=== PATIENT | male | born 1945 | race Caucasian/White ===

== ENCOUNTER → 2020-03-01 08:47 | Outpatient (BNVA) | payer MEDICARE, MEDICAID, SELFPAY | PROVIDERS: Family Provider Emergency Medicine Emergency Medical Services; Visit Provider Social Worker | DX: F41.1 Generalized anxiety disorder (principal) | CPT/HCPCS: 90834 ==

== ENCOUNTER 2020-09-15 19:07 | Inpatient (IN) | payer MEDICARE, MEDICAID, SELFPAY ==
[2020-09-15] VITALS (7 sets, daily range): BP systolic 87–142; BP diastolic 55–90; PULSE 90–109; RESP 18–29; TEMP 36.8–37; O2SAT 85–96; BMI 32.5
--- NOTE | 2020-09-15 19:26 | XRR_ITS ---
PROCEDURE INFORMATION: Exam: XR Chest, 1 View Exam date and time: 09/15/2020 7:47 PM Age: 74 years old Clinical indication: Dyspnea; Additional info: Gi bleed TECHNIQUE: Imaging protocol: XR of the chest Views: 1 view. COMPARISON: CR Chest 1 [place] [id number] 05/03/2019 7:55 PM FINDINGS: Lungs: Unremarkable. No consolidation. Pleural space: Unremarkable. No pleural effusion. No pneumothorax. Heart/Mediastinum: Unremarkable. No cardiomegaly. Bones/joints: Unremarkable. XR/XR chest 1V portable [id number] IMPRESSION: No acute findings.
--- NOTE | 2020-09-15 19:29 | ECG_ITS ---
[facility], Former[facility] Test Date: 2020-09-15 Pat Name: Yassine Santillan Sr Department: Room: Gender: Male [employer]: : 1945 Requested By: Pierce Mon Order Number: [id number] Joey MD: Cesar Espitia M.D. Measurements Intervals [place] Rate: 94 P: LA: QRS: 5 QRSD: 97 T: 89 QT: 373 QTc: 469 Interpretive Statements ATRIAL FIBRILLATION LOW QRS VOLTAGE IN EXTREMITY LEADS [QRS DEFLECTION < 0.5 mV IN LIMB LEADS] SEPTAL MYOCARDIAL INFARCTION , OF INDETERMINATE AGE [40+ ms Q WAVE IN V1/V2] No previous ECG available for comparison Electronically Signed On 09-16-2020 11:18:44 [employer]BLE MECH[employer]IC HELPER by Cesar Espitia M.D. [email or web address] Cattle Industrymercy health [email or web address]/store/OM/[id number]
--- NOTE | 2020-09-15 19:35 | CTR_ITS ---
PROCEDURE INFORMATION: Exam: CT Abdomen And Pelvis With Contrast Exam date and time: 09/15/2020 9:40 PM Age: 74 years old Clinical indication: Nausea and vomiting; Patient HX: Vomiting blood; Additional info: Abd pain gi bleeding. TECHNIQUE: Imaging protocol: Computed tomography of the abdomen and pelvis with intravenous contrast. Radiation optimization: All CT scans at this facility use at least one of these dose optimization techniques: automated exposure control; mA and/or kV adjustment per patient size (includes targeted exams where dose is matched to clinical indication); or iterative reconstruction. Contrast material: VISI 320; Contrast volume: 95 ml; Contrast route: INTRAVENOUS (IV); COMPARISON: CT abdomen pelvis w con* [id number] 03/23/2018 1:48 PM RADIATION DOSE METRICS: Total DLP (mGy-cm): 906.1 FINDINGS: Limitations: Metallic artifact from bilateral hip prostheses limits visualization of the lower pelvis. Lungs: Interstitial fibrosis and mild bronchiectasis noted at the lung bases. Liver: The liver is unremarkable in appearance. Gallbladder and bile ducts: Gallbladder contains multiple tiny gallstones in the dependent portion. No gallbladder wall thickening. No biliary dilatation. Pancreas: The pancreas is normal in appearance. Spleen: The spleen is normal in size and appearance. Adrenal glands: The adrenal glands appear within normal limits. Kidneys and ureters: Cortical scarring of the left kidney. There is a simple appearing 1.8 cm left renal cyst. No solid renal masses. No calculus or hydronephrosis on either side. Stomach and bowel: The stomach is distended with fluid and air, but appears morphologically normal. No acute abnormality of the small bowel demonstrated. Moderate retained stool throughout the colon. No inflammatory change of the colon. Appendix: No evidence of appendicitis. Intraperitoneal space: No pneumoperitoneum. No significant fluid collection. Vasculature: Abdominal aorta is atherosclerotic. There is diffuse aneurysmal dilatation of the abdominal aorta. The suprarenal aorta measures 5.1 cm in AP dimension in the sagittal plane. 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 The right common iliac measures 2.4 cm in diameter, unchanged. Left common iliac artery is mildly ectatic without carl aneurysm. 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 Right internal iliac is patent. Lymph nodes: No pathologically enlarged lymph nodes. Urinary bladder: The urinary bladder is unremarkable in appearance. Reproductive: Unremarkable as visualized. Bones/joints: Bilateral hip prostheses are noted. Postop changes and degeneration of the spine noted. Soft tissues: Small left inguinal hernia noted, containing only fat. CT/CT abdomen pelvis w con* [id number] IMPRESSION: 1. Metallic artifact from bilateral hip prostheses limits visualization of the lower pelvis. 2. The stomach is distended with fluid and air, but appears morphologically normal. Gastric distention is a new finding when compared to the previous study, however the source of hematemesis is not identified. 3. Gallbladder contains multiple tiny gallstones in the dependent portion. No gallbladder wall thickening. No biliary dilatation. 4. Abdominal aorta is atherosclerotic. There is diffuse aneurysmal dilatation of the abdominal aorta. The suprarenal aorta measures 5.1 cm in AP dimension in the sagittal plane. This is unchanged from 03/25/2019. 5. 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 The right common iliac measures 2.4 cm in diameter, unchanged. 6. Left common iliac artery is mildly ectatic without carl aneurysm. 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 Right internal iliac is patent. This is unchanged. 7. Small left inguinal hernia noted, containing only fat. COMMENTS: Consistent with the [employer]'s Incidental Findings Committee white paper (J Am Mona Radiol 2018): Any incidental renal lesion less than 1 cm or classified as too small to characterize, or any incidental cystic renal lesion characterized as simple-appearing, is likely benign. No follow-up imaging is recommended for these lesions per consensus recommendations based on imaging criteria. Radiation Dose CTDIVOL = (mGy): DLP = 906.1 (mGy-cm)
[2020-09-15 19:47] LABS: ABG PCO2 42.7 mmHg (35-45); ABG PH Result 7.47 (7.35-7.45); Arterial Blood Gas Hematocrit 29.6 % (42-52); Base Excess ABG 6.3 mmol/L (-2.0-2.0); Blood Gas Allen Test Pos; Blood Gas LPM 4.5 %; Blood Gas Operator Identificat MONRO; Blood Gas Sample Site Radial, left; Blood Gas Sample Type Arterial; HCO3 ABG 30.7 mmol/L (22-26); Oxygen Device NC; PO2 ABG 61.9 mmHg (80.0-100.0)
[2020-09-15 20:10] LABS: Basophils # 0.1 10^3/uL (0.0-0.1); Basophils % 0.3 %; Eosinophils # 0.1 10^3/uL (0.0-0.8); Eosinophils % 0.8 %; Hematocrit 35.3 % (42.0-52.0); Hemoglobin 10.7 g/dL (11.7-16.6); Lymphocytes # 1.5 10^3/uL (0.8-4.8); Mean Corpuscular HGB Conc 30.3 g/dL (30.0-36.0); Mean Corpuscular Hemoglobin 28.6 pg (28.0-34.0); Mean Corpuscular Volume 94.4 fL (80-94); Mean Platelet Volume 10.3 fL (7.4-10.4); Monocytes # 1.2 10^3/uL (0.2-0.9); Monocytes % 6.4 %; Neutrophils # 15.52 10^3/uL (1.8-7.7); Neutrophils % 83.8 %; Nucleated Red Blood Cells % 0 %; Platelet Count 366 10^3/cmm (130-400); Red Blood Count 3.74 10^6/uL (4.1-5.3); Red Cell Distribution Width 15.1 % (12.1-15.1); White Blood Count 18.5 10^3/uL (4.0-10.0)
[2020-09-15] MEDS: sodium chloride 0.9% 1,000 ML 999 ML IV (20:11)
[2020-09-15 20:35] LABS: INR 1.59 (0.8-1.2)
[2020-09-15 20:36] LABS: Lactate (Lactic Acid level) 1.6 mmol/L (0.5-2.2); Partial Thromboplastin Time 38.3 SECONDS (23.9-36.7)
[2020-09-15 20:39] LABS: Alanine Aminotransferase 9 U/L (0-41); Albumin Level 3.3 g/dL (3.5-5.2); Alkaline Phosphatase 104 IU/L (40-130); Blood Urea Nitrogen 34 mg/dL (8-23); Calcium 9.2 mg/dL (8.5-10.5); Carbon Dioxide 30 mmol/L (22-29); Chloride 90 mmol/L (98-107); Globulin 4.7 g/dL (1.3-4.6); Glucose 131 mg/dL (65-115); Osmolality Calculated 283 mOsm/kg (285-295); Sodium 132 mmol/L (136-145); Total Bilirubin 0.6 mg/dL (0.15-1.2)
[2020-09-15 20:42] LABS: Anion Gap 16.9 (5-19); Aspartate Amino Transferase 18 U/L (0-40); Potassium 4.9 mmol/L (3.5-5.1)
--- NOTE | 2020-09-15 21:46 | W.ED.NAVMDI ---
HPI - Nausea/Vomiting/Diarrhea General: Chief complaint: Nausea/Vomiting/Diarrhea Stated complaint: VOMITING BLOOD Time Seen by Provider: 09/15/20 19:13 History of Present Illness: MD elicited complaint: vomiting and abdominal pain Pertinent past history: hernia Onset (ago): hour(s) Description of vomiting: bloody Associated nausea: Yes Associated abdominal pain: Yes Location of pain: Epigastric and LLQ Pain consistency: constant Severity: moderate Exacerbating factors: movement Relieving factors: none Context: anticoagulant use and aspirin use Associated symtoms: Reports altered mental status and nausea; Denies anxiety, change in vision, chest pain, dizziness, headache(s) or palpitations Review of Systems Const: Denies: fever(s) Eyes: Denies: change in vision ENMT: Denies: odynophagia or sinus pain Card: Denies: chest pain, palpitations or irregular heart rhythm Resp: Denies: dyspnea, productive cough, non-productive cough or wheezing GI: Reports: nausea : Denies: difficulty urinating Musc: Denies: neck pain or joint warmth Skin/Breast: Denies: rash, pruritus or erythema Neuro: Denies: headache(s), dizziness, vertigo or confusion Psych: Denies: anxiety PFSH ED PFSH: Medical History (Updated 09/15/20 @ 23:40 by Deja Resendez MD) Anticoagulant prescribed Atrial fibrillation Back pain CAD (coronary artery disease) COPD (chronic obstructive pulmonary disease) Diabetes DNR (do not resuscitate) Hospice care patient Hypertension Presence of hip joint prosthesis Surgical History H/O abdominal surgery H/O angioplasty H/O hernia repair Previous back surgery S/P AAA repair Family History Other Family history non-contributory Social History Alcohol intake: never Substance/Drug Use: never Housing: [facility] Physical Exam Const: EXAM LIMITATIONS: altered mental status GENERAL APPEARANCE: ill appearing and frail appearing ORIENTATION/CONSCIOUSNESS: Yes oriented to person and Yes oriented to place; not oriented to time HENMT: COMMON NORMALS: normocephalic HEAD & SCALP: normocephalic FACE & SINUS: normal facial exam NOSE: No nasal discharge present Eye: COMMON NORMALS: Equal, round and reactive pupils present, EOMs intact bilaterally and conjunctivae normal EYELID: eyelids normal CONJUNCTIVA: Yes conjunctivae normal PUPIL: Yes Equal, round and reactive pupils present Neck/C-Spine: GENERAL: No tracheal deviation Chest: COMMONS NORMALS: normal inspection of the chest CHEST: No tenderness Resp: COMMON NORMALS: clear to auscultation bilaterally EFFORT & INSPECTION: No tachypneic, No respiratory distress, No retractions, No uses accessory muscles and No tracheal deviation AUSCULTATION: clear to auscultation bilaterally, no rhonchi, no wheezes and lung sounds not diminished Cardio: COMMON NORMALS: regular rate and regular rhythm RATE: regular rate RHYTHM: regular rhythm HEART SOUNDS: no murmurs PERIPHERAL PULSES: radial pulses present GI: INSPECTION: No abdominal distension AUSCULTATION: No Hyperactive bowel sounds present and No Hypoactive bowel sounds present PALPATION: Yes Tenderness to palpation present (GI) (epigastric) Details: LLQ, Yes Guarding due to palpation present (GI) and No Rigid due to palpation PERCUSSION: no dullness to percussion and no tympanic to percussion Neuro: SENSORIUM/ORIENTATION: Yes oriented to person, Yes oriented to place and No oriented to time Course Consultations: Consultation #1: rody Vital Signs: Vital signs: Vital Signs Temperature 98.6 F 09/15/20 22:30 Pulse Rate 92 09/16/20 00:00 Respiratory Rate 25 H 09/16/20 00:00 Blood Pressure 128/69 09/16/20 00:00 Pulse Oximetry 94 09/16/20 00:00 MDM - Nausea/Vomiting/Diarrhea MDM Narrative: Medical decision making narrative: 74-year-old H[facility] presents with GI bleeding, throwing up dark blood there 1 time. He was hypotensive on arrival requiring fluid bolus, and 1 unit of blood was crossmatched and given in the ER. Pressures normalized. He looked better, but did have 2 more episodes of bloody emesis here in the ER. His hemoglobin remains 10.7. White blood cell count was 18.5. BUN 34, creatinine 2.1. With normalization in his blood pressure, and a hemoglobin of 10.7, having been transfused 1 unit, he will go to the floor. His belly CT showed no definite cause of GI bleeding, and no acute pathology. The stomach was distended with air and liquid. NG tube was placed without much return. We will continue to monitor pressure and hemoglobin. I talked with the patient's son and the patient himself, and it appears she is to remain a DNR status. Lab Data: Labs: Lab Results 09/15/20 09/15/20 09/15/20 Range/Units 19:34 19:47 19:47 WBC 18.5 H (4.0-10.0) 10^3/ uL RBC 3.74 L (4.1-5.3) 10^6/u L Hgb 10.7 L (11.7-16.6) g/dL Hct 35.3 L (42.0-52.0) % MCV 94.4 H (80-94) fL MCH 28.6 (28.0-34.0) pg MCHC 30.3 (30.0-36.0) g/dL RDW 15.1 (12.1-15.1) % Plt Count 366 (130-400) 10^3/c mm MPV 10.3 (7.4-10.4) fL Neut % (Auto) 83.8 % Lymph % (Auto) 8.0 % [place] % (Auto) 6.4 % Eos % (Auto) 0.8 % Baso % (Auto) 0.3 % Neut # (Auto) 15.52 H (1.8-7.7) 10^3/u L Lymph # (Auto) 1.5 (0.8-4.8) 10^3/u L [place] # (Auto) 1.2 H (0.2-0.9) 10^3/u L Eos # (Auto) 0.1 (0.0-0.8) 10^3/u L Baso # (Auto) 0.1 (0.0-0.1) 10^3/u L Nucleated RBC % (a uto) 0 % Nucleated RBCs # 0.0 /100WBC PT (12.1-14.9) SECO NDS INR (0.8-1.2) APTT (23.9-36.7) SECO NDS Specimen Type Arterial Sample Site Radial, left ABG pH 7.47 H (7.35-7.45) ABG pCO2 42.7 (35-45) mmHg ABG pO2 61.9 L (80.0-100.0) mmH g ABG HCO3 30.7 H (22-26) mmol/L ABG Base Excess 6.3 H (-2.0-2.0) mmol/ L [facility] Test Pos Hematocrit 29.6 L (42-52) % O2 Delivery Device Nc O2 Liters/Min 4.5 % FiO2 38.0 % Sulfide Head Operator ID Monro Sodium (136-145) mmol/L Potassium (3.5-5.1) mmol/L Chloride (98-107) mmol/L Carbon Dioxide (22-29) mmol/L Anion Gap (5-19) BUN (8-23) mg/dL Creatinine (0.7-1.2) mg/dL GFR Calculation Glucose (65-115) mg/dL Calculated Osmolal ity (285-295) mOsm/k g Lactate (0.5-2.2) mmol/L Calcium (8.5-10.5) mg/dL Total Bilirubin (0.15-1.2) mg/dL AST (0-40) U/L ALT (0-41) U/L Alkaline Phosphata se (40-130) IU/L Total Protein (6.6-8.7) g/dL Albumin (3.5-5.2) g/dL Globulin (1.3-4.6) g/dL Blood Type O Positive Rho(D) Type Positive Antibody Screen Negative Crossmatch See Detail 09/15/20 09/15/20 09/15/20 Range/Units 19:47 19:47 19:47 WBC (4.0-10.0) 10^3/ uL RBC (4.1-5.3) 10^6/u L Hgb (11.7-16.6) g/dL Hct (42.0-52.0) % MCV (80-94) fL MCH (28.0-34.0) pg MCHC (30.0-36.0) g/dL RDW (12.1-15.1) % Plt Count (130-400) 10^3/c mm MPV (7.4-10.4) fL Neut % (Auto) % Lymph % (Auto) % [place] % (Auto) % Eos % (Auto) % Baso % (Auto) % Neut # (Auto) (1.8-7.7) 10^3/u L Lymph # (Auto) (0.8-4.8) 10^3/u L [place] # (Auto) (0.2-0.9) 10^3/u L Eos # (Auto) (0.0-0.8) 10^3/u L Baso # (Auto) (0.0-0.1) 10^3/u L Nucleated RBC % (a uto) % Nucleated RBCs # /100WBC PT 19.50 H (12.1-14.9) SECO NDS INR 1.59 H (0.8-1.2) APTT 38.3 H (23.9-36.7) SECO NDS Specimen Type Sample Site ABG pH (7.35-7.45) ABG pCO2 (35-45) mmHg ABG pO2 (80.0-100.0) mmH g ABG HCO3 (22-26) mmol/L ABG Base Excess (-2.0-2.0) mmol/ L [facility] Test Hematocrit (42-52) % O2 Delivery Device O2 Liters/Min % FiO2 % Sulfide Head Operator ID Sodium 132 L (136-145) mmol/L Potassium 4.9 (3.5-5.1) mmol/L Chloride 90 L (98-107) mmol/L Carbon Dioxide 30 H (22-29) mmol/L Anion Gap 16.9 (5-19) BUN 34 H (8-23) mg/dL Creatinine 2.1 H (0.7-1.2) mg/dL GFR Calculation Not Reportable Glucose 131 H (65-115) mg/dL Calculated Osmolal ity 283 L (285-295) mOsm/k g Lactate 1.6 (0.5-2.2) mmol/L Calcium 9.2 (8.5-10.5) mg/dL Total Bilirubin 0.6 (0.15-1.2) mg/dL AST 18 (0-40) U/L ALT 9 (0-41) U/L Alkaline Phosphata se 104 (40-130) IU/L Total Protein 8.0 (6.6-8.7) g/dL Albumin 3.3 L (3.5-5.2) g/dL Globulin 4.7 H (1.3-4.6) g/dL Blood Type Rho(D) Type Antibody Screen Crossmatch Discharge Plan Discharge Admit Provider: Deja Resendez Coding Level of Care Code ED [place] Ragger for g Fwd Exam Comprehensive
[2020-09-15] MEDS: iodixanol 320 mg/mL 100mL Btl IV (21:59)
--- NOTE | 2020-09-15 23:10 | P.HP_ITS ---
Providers/Chief Complaint Chief Complaint: VOMITING BLOOD History of Present Illness Yassine Santillan Sr is a 74 year old male who is on hospice for severe COPD, interstitial fibrosis, bronchiectasis, resident of [facility] came in today after experiencing hematemesis. Patient is stating that today he started vomiting and he noticed coffee-ground emesis, he has been experiencing midepigastric pain, he is denying chest pain but endorsing productive cough, bringing up yellow sputum. He denied fever, active shortness of breath, dysuria or diarrhea. I called intermediate to get the report, as per the report patient had COVID-19 pneumonia a month ago, before that he was able to walk up to his wheelchair, after COVID- 19 pneumonia his health has gradually declined now he is basically needing a ssistance for ambulation, he mostly stays in bed or uses wheelchair, he is not able to do activities independently anymore. There is no previous history of stroke. Patient is endorsing dysphagia to liquid and solid, he is stating that he is just not able to walk on his own and he cannot keep his balance while he is in sitting position. He has been taking Eliquis for A. fib. Diagnosis in the ER revealed hypotension initially his blood pressure was in low 70s, which improved after 1 L bolus, ER started him on first unit of PRBC by the time I saw him, patient had audible crackles, sounded congested, he has had multiple small hematemesis episodes, he was saturating 80% on 3 L which I increased to 5 L, patient stated that at intermediate he is using [address] abdomen did not reveal any acute findings however abdomen is distended, he could not get CTA because of abnormal creatinine, RICHARD, leukocytosis noted, he would meet sepsis criteria secondary to tachypnea and leukocytosis my concern is for aspiration pneumonia, will start him on Zosyn Documents reviewed, he is DNR/DNI At the facility he is on hospice for severe COPD. Home medications Acetaminophen 325 mg every 6 as needed Albuterol sulfate HFA aerosol 2 puffs as needed Aspirin 81 mg daily Vitamin D3 1000 mg every day daily Cyclobenzaprine 5 mg p.o. 3 times a day as needed Diltiazem 60 mg twice a day Dulcolax 10 mg once a day as needed Eliquis 5 mg twice a day Senna S8.6/50 p.o. at bedtime Symbicort 160?4.5 twice a day Tamsulosin 0.4 mg daily Ferrous gluconate 324 mg every day Fentanyl patch 75 mics per hour every 72 hours Enema as needed Gabapentin 300 mg 3 times a day Lisinopril 40 mg daily Lorazepam 2 mg IV every 2 hours as needed anxiety Metoprolol succinate 12.5 mg twice a day Milk of magnesia as needed Morphine 20 mg per 5 mL every 2 hours as needed Mucinex 3 times a day Zofran 4 mg every 4 hours. Review of Systems Const: Reports: chills, body aches and fatigue; Denies: fever(s) Eyes: Denies: change in vision ENMT: Reports: odynophagia; Denies: throat pain Card: Denies: chest pain Resp: Reports: dyspnea and productive cough GI: Reports: abdominal pain, nausea, vomiting and constipation : Denies: flank pain Musc: Reports: muscle cramps and muscle weakness; Denies: neck pain Skin/Breast: Reports: lesions Neuro: Reports: weakness in extremities, lack of coordination and difficulty walking Psych: Reports: memory loss; Denies: anxiety Endo: Denies: polyuria Regan/Lymph: Denies: easy bruising All/Imm: Denies: urticaria PFSH Acute PFSH: Medical History Anticoagulant prescribed Atrial fibrillation Back pain CAD (coronary artery disease) COPD (chronic obstructive pulmonary disease) Diabetes DNR (do not resuscitate) Hypertension Presence of hip joint prosthesis Surgical History H/O abdominal surgery H/O angioplasty H/O hernia repair Previous back surgery S/P AAA repair Family History Other Family history non-contributory Social History Alcohol intake: never Substance/Drug Use: never Housing: Longterm Vitals/I&O/Wt Last Vital Signs Temp 98.6 F 09/15/20 22:30 Pulse 94 09/15/20 23:07 Resp 26 H 09/15/20 23:07 BP 106/59 09/15/20 23:07 Pulse Ox 96 09/15/20 23:07 09/15/20 09/15/20 09/16/20 14:59 22:59 06:59 Intake Total 0 / 0 Balance 0 / 0 Weight last 48 hrs Weight 99.79 kg Physical Exam Narrative: EXAM NARRATIVE: Elderly male Was in distress due to hematemesis, vomiting bucket by the bedside showing dark color coffee-ground emesis with fresh streaks of blood Bringing up yellow-green sputum as well Patient is able to state above-mentioned HPI however repetitive He has truncal ataxia Patient is endorsing dysphagia to solids and liquids Lower extremity strength 2/5, upper extremity strength 3/5, truncal ataxia noted No facial asymmetry, PERRLA Abdomen midepigastric tenderness on deep palpation otherwise nontender, soft bowel sounds hyperactive Bibasilar crackles with rhonchi however diminished breath sounds no acute respiratory distress, Lower extremity no edema gangrene or ulcer He is awake alert oriented x3 GCS 15 Cognitive impairment noted mild to moderate Increased FiO2 to 5 L Data : 09/15/20 19:47 09/15/20 19:47 A&P Assessment and plan (1) Dysphagia: Status: Acute (2) Hematemesis: Status: Acute (3) Weakness: Status: Acute (4) Aspiration pneumonia: Status: Acute (5) Sepsis: Status: Acute (6) RICHARD (acute kidney injury): Status: Acute Additional A&P Information Hematemesis Patient is hypotensive, responsive to fluids, Currently getting first unit of PRBC, hemoglobin however seems to be at baseline 10 Macrocytic anemia, will check B12 and folate level No urgent need of endoscopy, hold Eliquis, currently consider general surgery consult in the morning if there is a drastic drop in hemoglobin CT abdomen did not show any acute findings, distended abdomen noted, will put NG tube to low intermittent suction Zofran antiemetic, Protonix 40 mg IV twice daily Morphine analgesia for midepigastric discomfort Acute kidney injury This seems secondary to dehydration and hypotension along with nephrotoxic agent such as lisinopril Hold lisinopril, continue IV fluid resuscitation and blood transfusion, No hydronephrosis seen on a CT abdomen Please note CT abdomen ordered by the ER was with contrast, monitor closely for worsening of creatinine for NIGHAT Sepsis secondary to possible aspiration pneumonia Sepsis criteria met with tachypnea, leukocytosis, Lactic acid normal, currently hypotensive responsive to fluid We will start him on Zosyn, bringing up yellow to green sputum as well Dysphagia, truncal ataxia and lower extremity weakness Check B12 level, rule out stroke, CT head without contrast, not a candidate to get CTA head and neck because of active hematemesis and hypotension, he is a hospice patient for severe COPD at intermediate Not a candidate to be on any dual antiplatelet therapy as well We will get speech evaluation N.p.o. Oxygen dependent COPD at intermediate, uses 4 to 5 L at baseline, no acute exacerbation DNR/DNI N.p.o. DVT prophylaxis SCDs Attestations Medical Necessity Statement*: Anticipating stay in the hospital cross more than 2 midnights currently need IV antibiotics and blood transfusion for hypotension and sepsis Time Spent in Patient Care: (>than 50% of time spent in counselling and/or dir ect pt care on unit) . 50mins Coding Level of Care Code Acute [employer] Director for Chg Fwd Diagnoses Dysphagia R13.10 Hematemesis K92.0 Weakness R53.1 Aspiration pneumonia J69.0 Sepsis A41.9 RICHARD (acute kidney injury) N17.9
--- NOTE | 2020-09-15 23:15 | CTR_ITS ---
PROCEDURE INFORMATION: Exam: CT Head Without Contrast Exam date and time: 09/15/2020 11:28 PM Age: 74 years old Clinical indication: Other: Ataxia; Additional info: Dysphai and trucla ataxia TECHNIQUE: Imaging protocol: Computed tomography of the head without contrast. Radiation optimization: All CT scans at this facility use at least one of these dose optimization techniques: automated exposure control; mA and/or kV adjustment per patient size (includes targeted exams where dose is matched to clinical indication); or iterative reconstruction. COMPARISON: CT head wo con* [id number] 2017-04-26 11:01 RADIATION DOSE METRICS: Total DLP (mGy-cm): 760.67 FINDINGS: Brain: Diffuse mild cerebral age related volume loss. Mild patchy low attenuation in the white matter compatible with mild chronic small vessel ischemic disease. No midline shift, mass, fluid collection, or evidence of hemorrhage. Small chronic right thalamic lacunar infarct. Cerebral ventricles: Ventricular enlargement proportional to volume loss. Bones/joints: Unremarkable. No acute fracture. Paranasal sinuses: Minimal paranasal sinus mucosal thickening. Mastoid air cells: Visualized mastoid air cells are well aerated. Soft tissues: Unremarkable. CT/CT head wo con* [id number] IMPRESSION: 1. Mild involutional changes, no acute intracranial abnormality. 2. Small chronic right thalamic lacunar infarct. Radiation Dose CTDIVOL = (mGy): DLP = 760.67 (mGy-cm)
[2020-09-16] VITALS (15 sets, daily range): BP systolic 114–131; BP diastolic 68–84; PULSE 79–151; RESP 17–25; TEMP 36.6–36.9; O2SAT 93–97
[2020-09-16] MEDS: cetacaine Spray 5 gm Can 1 SPRAY TOPICAL (00:25)
[2020-09-16] MEDS: ondansetron 2 mg/ML SDV 2 mL 4 MG IVP (00:25)
--- NOTE | 2020-09-16 00:30 | XRR_ITS ---
PROCEDURE INFORMATION: Exam: XR Chest, 1 View Exam date and time: 09/16/2020 12:45 AM Age: 74 years old Clinical indication: Device placement; Ng tube; Additional info: Ng tube placement TECHNIQUE: Imaging protocol: XR of the chest Views: 1 view. COMPARISON: CR XR chest 1V portable [id number] 09/15/2020 7:38 PM FINDINGS: Limitations: Lung apices are excluded from the image. Tubes, catheters and devices: There is a nasogastric tube present with distal tip in the stomach. Lungs: Mild increased interstitial lung markings. No consolidative infiltrate. Pleural space: No pleural effusion. Heart/Mediastinum: No cardiomegaly. Bones/joints: Unremarkable. XR/XR chest 1V [id number] IMPRESSION: 1. Lung apices are excluded from the image. 2. There is a nasogastric tube present with distal tip in the stomach. 3. Mild increased interstitial lung markings. No consolidative infiltrate. Pulmonary findings are unchanged from the previous study.
[2020-09-16] MEDS: piperacillin-tazobactam 3.375 GM in sodium chloride 0.9% (plus) 50 ML IV ×3 (02:37→18:08)
[2020-09-16] MEDS: FUROsemide 10 mg/mL SDV 2mL 20 MG IVP (02:55)
[2020-09-16 06:03] LABS: Basophils # 0.1 10^3/uL (0.0-0.1); Basophils % 0.2 %; Hematocrit 31.7 % (42.0-52.0); Hemoglobin 9.8 g/dL (11.7-16.6); Lymphocytes # 1.8 10^3/uL (0.8-4.8); Lymphocytes % 8.8 %; Mean Corpuscular HGB Conc 30.9 g/dL (30.0-36.0); Mean Corpuscular Hemoglobin 28.7 pg (28.0-34.0); Monocytes # 1.6 10^3/uL (0.2-0.9); Monocytes % 7.9 %; Neutrophils # 16.58 10^3/uL (1.8-7.7); Neutrophils % 82.5 %; Nucleated Red Blood Cells % 0 %; Platelet Count 313 10^3/cmm (130-400); Red Blood Count 3.41 10^6/uL (4.1-5.3); Red Cell Distribution Width 15.2 % (12.1-15.1); White Blood Count 20.1 10^3/uL (4.0-10.0)
[2020-09-16 06:22] LABS: Anion Gap 10.8 (5-19); Blood Urea Nitrogen 38 mg/dL (8-23); Calcium 8.6 mg/dL (8.5-10.5); Carbon Dioxide 33 mmol/L (22-29); Chloride 98 mmol/L (98-107); Glucose 118 mg/dL (65-115); Osmolality Calculated 296 mOsm/kg (285-295); Potassium 3.8 mmol/L (3.5-5.1); Sodium 138 mmol/L (136-145)
[2020-09-16] MEDS: morphine 4 mg/mL SDV 1 mL 2 MG IVP ×3 (07:51→16:06)
[2020-09-16] MEDS: pantoprazole 40 mg SDV IVP ×2 (07:59→18:08)
[2020-09-16 17:27] LABS: Hemoglobin 10.1 g/dL (11.7-16.6)
--- NOTE | 2020-09-16 18:03 | P.PN_ITS ---
Subjective Subjective: Interval history: Still bothered by left upper quadrant pain. Has not had any vomiting. Later in the day accidentally pulled out his NG tube. Vitals/I&O/Wt Last Vital Signs Temp 98.3 F 09/16/20 16:00 Pulse 122 H 09/16/20 16:00 Resp 18 09/16/20 16:06 BP 125/79 09/16/20 16:00 Pulse Ox 96 09/16/20 16:00 09/16/20 09/16/20 09/16/20 06:59 14:59 22:59 Intake Total 1050 / 1050 Output Total 950 / 950 975 / 975 Balance 100 / 100 -975 / -975 Weight last 48 hrs Weight 99.79 kg Physical Exam Const: COMMON NORMALS: no acute distress and patient oriented x3 HENMT: COMMON NORMALS: oropharynx normal OTHER: NG tube in place during my assessment draining some brownish liquid with coffee-ground contents. Neck/C-Spine: COMMON NORMALS: no JVD Resp: COMMON NORMALS: normal respiratory effort AUSCULTATION: diminished lung sounds (at bases) Cardio: COMMON NORMALS: no JVD, regular rhythm, S1 normal heart sound present, S2 normal heart sound present and No murmurs present (Cardio) RHYTHM: regular rhythm HEART SOUNDS: S1 normal heart sound present and S2 normal heart sound present GI: COMMON NORMALS: Normal to inspection, nondistended, normoactive bowel sounds present and Soft to palpation PALPATION: Yes Soft to palpation and Yes Tenderness to palpation present (GI) Details: LUQ Extremity: COMMON NORMALS: no joint enlargement and no pedal edema Neuro: COMMON NORMALS: patient oriented x3 and moves all extremities Skin: COMMON NORMALS: no rashes or lesions noted GENERAL SKIN EXAM: no rashes or lesions noted Urinary Catheter Management^: Sheikh: Cath Placed During This Visit: yes Reason for Continuing Indwelling Catheter: Accurate Measurement of Urinary Output in Critically Ill Patients Urinary Catheter Date of Insertion: 09/16/20 Urinary Catheter Time of Insertion: 02:10 Data : 09/16/20 16:14 09/16/20 05:13 A&P Assessment and plan (1) Hematemesis: Upper GI bleed. Hemoglobin appears stabilized around 10.1. Still draining coffee-ground contents from stomach. NG tube has to be replaced as he inadvertently pulled it out. Still left upper quadrant abdominal discomfort. Continue PPI twice daily. Hold anticoagulation and ASA. Reassess hemoglobin. Check H. pylori antibody, antigen. Possible gastric outlet obstruction. If not improving with decompression consider endoscopic evaluation at some point if congruent with goals of care. He is under hospice care. Status: Acute (2) Dysphagia: Appreciate speech therapy assessment. At risk of aspiration. MBS requested. CT head with mild involutional changes, no chronic intracranial abnormality. Small chronic right thalamic lacunar infarct. Once more stable, could have additional work-up if congruent with goals of care as he is currently under hospice care. Aspirin is on hold for a number of reasons in addition to all other oral medications. Status: Acute (3) Sepsis: Sepsis with aspiration pneumonia, leukocytosis worse at 20.1, tachycardia, although is in atrial fibrillation. Sepsis has improved as tachypnea present on admission is now better. Status: Acute (4) Aspiration pneumonia: Additional assessment for dysphagia. Continue Zosyn. N.p.o. for now. Oxygenation stable, requiring 5 L oxygen by nasal cannula. COPD, normally on 4-5 L. Status: Acute (5) Weakness: Multifactorial. Treat underlying conditions as above. Status: Acute (6) RICHARD (acute kidney injury): With mild improvement, creatinine at 1.8. Hold lisinopril. Will give gentle IV hydration. 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 Right internal iliac is patent. This is unchanged. Status: Acute (8) AAA (abdominal aortic aneurysm): Incidentally noted. Status: Acute (9) Cholelithiasis: Incidentally noted. Status: Acute (10) Macrocytic anemia: I see B12 and folic acid were meant to be tested. Will request. Status: Acute (11) Paroxysmal atrial fibrillation with RVR: Change metoprolol to standing IV ordered. scientific software developer. Status: Acute Additional A&P Information DNR/DNI N.p.o. DVT prophylaxis SCDs Attestations Medical Necessity Statement*: Continue admission for assessment management of upper GI bleed, improving sepsis with aspiration pneumonia, dysphagia, acute kidney injury in a gentleman with severe underlying COPD, chronic hypoxia, on chronic anticoagulation, with a number of comorbidities. Coding Level of Care Code Acute Tag Press Operator for Chg Fwd Diagnoses Hematemesis K92.0 Dysphagia R13.10 Sepsis A41.9 Aspiration pneumonia J69.0 Weakness R53.1 RICHARD (acute kidney injury) N17.9 Iliac artery occlusion I74.5 AAA (abdominal aortic aneurysm) I71.4 Cholelithiasis K80.20 Macrocytic anemia D53.9 Paroxysmal atrial fibrillation with RVR I48.0
--- NOTE | 2020-09-16 18:35 | XRR_ITS ---
PROCEDURE INFORMATION: Exam: XR Chest, 1 View Exam date and time: 09/16/2020 7:11 PM Age: 74 years old Clinical indication: Device placement; Ng tube; Additional info: Ngt replaced TECHNIQUE: Imaging protocol: XR of the chest Views: 1 view. COMPARISON: CR (CHEST, ) 09/16/2020 12:26 AM FINDINGS: Tubes, catheters and devices: NG tube with tip in the mid stomach and side port near the GE junction. Lungs: Stable atelectasis or scarring in the left lung base. Ground-glass opacity in the right upper lobe. Pleural space: Unremarkable. No pleural effusion. No pneumothorax. Heart/Mediastinum: Unremarkable. No cardiomegaly. Bones/joints: Unremarkable. XR/XR chest 1V portable [id number] IMPRESSION: 1. NG tube tip in the mid stomach. 2. Ground-glass opacity in the right upper lobe could represent pneumonia.
[2020-09-16] MEDS: metoprolol tartrate 1 mg/1 mL SDV 5 mL 2.5 MG IV (20:19)
[2020-09-16] MEDS: ipratropium-albuterol 3 mL Neb INHALATION (21:14)
[2020-09-16 21:19] LABS: H. Pylori IgG Antibody Negative (Negative)
[2020-09-16] MEDS: lactated ringers 1,000 ML 75 ML IV (22:46)
[2020-09-16] MEDS: OLANZapine 10 mg VIAL IM (22:56)
[2020-09-17] VITALS (13 sets, daily range): BP systolic 126–144; BP diastolic 56–83; PULSE 74–115; RESP 16–25; TEMP 36.3–36.9; O2SAT 90–100
[2020-09-17] MEDS: morphine 4 mg/mL SDV 1 mL 2 MG IVP ×2 (01:44→20:32)
[2020-09-17] MEDS: metoprolol tartrate 1 mg/1 mL SDV 5 mL 2.5 MG IV ×4 (01:53→20:19)
[2020-09-17] MEDS: piperacillin-tazobactam 3.375 GM in sodium chloride 0.9% (plus) 50 ML IV ×3 (02:03→17:27)
[2020-09-17 05:46] LABS: Basophils % 0.3 %; Eosinophils # 0.1 10^3/uL (0.0-0.8); Eosinophils % 0.9 %; Hematocrit 30.6 % (42.0-52.0); Hemoglobin 9.3 g/dL (11.7-16.6); Lymphocytes # 1.6 10^3/uL (0.8-4.8); Lymphocytes % 13.3 %; Mean Corpuscular HGB Conc 30.4 g/dL (30.0-36.0); Mean Corpuscular Hemoglobin 28.9 pg (28.0-34.0); Mean Platelet Volume 10.1 fL (7.4-10.4); Monocytes % 7.8 %; Neutrophils # 9.44 10^3/uL (1.8-7.7); Neutrophils % 77.2 %; Nucleated Red Blood Cells % 0 %; Platelet Count 299 10^3/cmm (130-400); Red Blood Count 3.22 10^6/uL (4.1-5.3); Red Cell Distribution Width 15.3 % (12.1-15.1); White Blood Count 12.2 10^3/uL (4.0-10.0)
[2020-09-17 06:23] LABS: Anion Gap 13.7 (5-19); Blood Urea Nitrogen 37 mg/dL (8-23); Calcium 8.9 mg/dL (8.5-10.5); Carbon Dioxide 33 mmol/L (22-29); Chloride 98 mmol/L (98-107); Glucose 106 mg/dL (65-115); Osmolality Calculated 301 mOsm/kg (285-295); Potassium 3.7 mmol/L (3.5-5.1); Sodium 141 mmol/L (136-145)
[2020-09-17 06:40] LABS: Folate Level 4.8 ng/mL (4.5-32.2)
[2020-09-17 07:23] LABS: Vitamin B12 569 pg/mL (232-1245)
--- NOTE | 2020-09-17 08:00 | FL_ITS ---
WS: [id number] FL barium swallow modified [id number] REASON FOR EXAM: Oropharyngeal dysphagia FLUOROSCOPY TIME: 2.4 minutes FINDINGS: Videofluoroscopy was performed during the upright swallowing of small barium meals of varying texture and volume. Detailed report of the swallowing will be reported by speech therapy. Nasogastric tube i s in place. No obstruction of the mid or distal esophagus was identified. FL/FL barium swallow modifd [id number] IMPRESSION: Video fluoroscopy of swallowing as above.
[2020-09-17] MEDS: pantoprazole 40 mg SDV IVP ×2 (09:29→17:28)
[2020-09-17 13:18] LABS: Glucose Point of Care 110 mg/dL (70-110)
[2020-09-17] MEDS: lactated ringers 1,000 ML 75 ML IV (13:39)
[2020-09-17] MEDS: ipratropium-albuterol 3 mL Neb INHALATION ×2 (14:44→21:10)
--- NOTE | 2020-09-17 15:44 | XRR_ITS ---
PROCEDURE INFORMATION: Exam: XR Abdomen, 1 View Exam date and time: 09/17/2020 3:52 PM Age: 74 years old Clinical indication: Device placement; Gi device; Nasogastric tube; Additional info: Gastric outlet obstruction; Pulled out ngt TECHNIQUE: Imaging protocol: XR of the abdomen. Views: Frontal supine view of the abdomen. 1 View. COMPARISON: CT abdomen pelvis w con* [id number] 09/15/2020 9:37 PM FINDINGS: Tubes, catheters and devices: Unidentified catheter tubing over the left abdomen pelvis. Gastrointestinal tract: Normal. No bowel dilation. Bones/joints: Stable bilateral total hip replacement. Severe lumbar spondylosis. Other findings: There are postoperative changes over the left upper quadrant abdomen. Residual oral contrast loops of left-sided small-bowel. XR/XR KUB [id number] IMPRESSION: 1. There are postoperative changes over the left upper quadrant abdomen. 2. Residual oral contrast loops of left-sided small-bowel. 3. Unidentified catheter tubing over the left abdomen pelvis.
--- NOTE | 2020-09-17 15:44 | PC.NURSE ---
Nurse entered patient room to find that patient had removed his NG tube. Patient stated The doctor said I could. He said I could take it out. No order had been received from Dr. Barros to remove NG tube. Dr. Barros notified.
--- NOTE | 2020-09-17 18:02 | XR_ITS ---
WS: [id number] XR shoulder RT min 2V* [id number] REASON FOR EXAM: s/p fall c/o shoulder pain FINDINGS: Multi part fracture of the right humeral head at the surgical neck. Fracture fragments are not signif icantly displaced and remain aligned with the glenoid fossa. Degenerative arthropathy in the acromioclavicular joint with joint space narrowing and osteophytic sp urring. No other significant findings. XR/XR shoulder RT min 2V* [id number] IMPRESSION: Right humeral head fracture as above.
--- NOTE | 2020-09-17 18:02 | XR_ITS ---
WS: [id number] XR hip BI 3-4V wo/w pel [id number] REASON FOR EXAM: s/p fall c/o hip pain FINDINGS: LEFT HIP: Total left hip arthroplasty. The left hip arthroplasty is relatively unchanged compared to previous e xamination 09/19/2018. No fracture identified. Surgical appliance remains properly positioned. RIGHT HIP: Crosstable lateral demonstrates a fracture through the proximal right femur at the level of the lesse r trochanter. Surgical appliance remains in position. XR/XR hip BI 3-4V wo/w pel [id number] IMPRESSION: Fracture proximal right femur as above.
--- NOTE | 2020-09-17 18:02 | XR_ITS ---
WS: [id number] XR shoulder LT min 2V* [id number] REASON FOR EXAM: s/p fall c/o shoulder pain FINDINGS: Narrowing of the left acromioclavicular joint space with marginal osteophytes. Narrowing of the left glenohumeral joint space with minimal spurring of the humeral head. No fracture or dislocation. XR/XR shoulder LT min 2V* [id number] IMPRESSION: Osteoarthropathy of the left shoulder joint as above.
--- NOTE | 2020-09-17 18:06 | PC.NURSE ---
Patient found by TEXTURE ARTIST in floor laying on left side. Patient stated he was trying to go to the bathroom and fell when he stood up. Patient assisted back to bed by three members of staff. No visible injuries seen on patient. Patient complains of bilateral hip and bilateral shoulder pain. Vitals obtained. Blood pressure elevated. Dr. Barros notified of fall and patient status. Per Dr. Barros patient is to have a 1:1 sitter as well as xrays performed of both hips and both shoulders.
--- NOTE | 2020-09-17 20:56 | PM.PN ---
Subjective Subjective: Interval history: Patient was seen a couple of times today. He was doing okay earlier. He ended up pulling out his NG tube this afternoon. We have held off on replacing it as he started to pass some gas. KUB did not show the same degree of gastric distention although it did identify some contrast from swallow study earlier today. Later on this afternoon he was found on the floor. He complained of some discomfort at his shoulders and hips. X-rays were done. I do not see anything obvious but await official interpretation of these. A sitter has been ordered for his safety under the circumstances. Vitals/I&O/Wt Last Vital Signs Temp 98.1 F 09/17/20 19:45 Pulse 111 H 09/17/20 19:45 Resp 16 09/17/20 20:32 BP 126/83 09/17/20 19:45 Pulse Ox 90 09/17/20 19:45 09/17/20 09/17/20 09/17/20 06:59 14:59 22:59 Intake Total 50 / 150 1050 / 1050 Output Total 950 / 2325 300 / 300 220 / 520 Balance -900 / -2175 750 / 750 -220 / 530 4 bowel movements today Physical Exam Const: OTHER: Alert, oriented x3, cooperative HENMT: OTHER: NG tube in place Eye: OTHER: Pupils equally round Neck/C-Spine: OTHER: Supple Resp: OTHER: Clear to auscultation bilaterally, no rales, rhonchi or wheezes noted Cardio: OTHER: Regular rate and rhythm GI: OTHER: Abdomen soft, mildly tender, nondistended with decreased but positive bowel sounds Extremity: NARRATIVE EXTREMITY EXAM: Trace edema Neuro: OTHER: Face symmetric, speech clear, moves all extremities Psych: OTHER: Normal affect Skin: OTHER: Skin dry Urinary Catheter Management^: Sheikh: Cath Placed During This Visit: yes Reason for Continuing Indwelling Catheter: Accurate Measurement of Urinary Output in Critically Ill Patients Urinary Catheter Date of Insertion: 09/16/20 Urinary Catheter Time of Insertion: 02:10 Data : 09/17/20 05:31 09/17/20 05:31 A&P Assessment and plan (1) Hematemesis: Present on admission primarily is coffee ground emesis. Contents from NG tube output continued to be brown in nature. No bright red blood. Received 1 unit of packed red blood cells on September 15. Status: Acute (2) Dysphagia: Swallow study was done today. No carl aspiration but certainly at risk for such. Recommendation was for soft diet with thin liquids. Status: Acute (3) Sepsis: As evidenced by leukocytosis, tachycardia, fever at admission. [place] secondary to aspiration pneumonia. Improved. Status: Acute (4) Aspiration pneumonia: On Zosyn and oxygen therapy Status: Acute (5) Weakness: Multifactorial Status: Acute (6) RICHARD (acute kidney injury): Off of home lisinopril. Has been on fluids. 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 Right internal iliac is patent. Status: Chronic (8) AAA (abdominal aortic aneurysm): Incidentally noted, measuring 5.1 cm in the AP dimension in the suprarenal aortic region Status: Chronic (9) Cholelithiasis: Incidentally noted on CT imaging Status: Acute (10) Macrocytic anemia: B12 and folate within normal limits Status: Acute (11) Paroxysmal atrial fibrillation with RVR: Currently on IV metoprolol given n.p.o. status Status: Chronic Additional A&P Information Fall today without gross injury, x-rays pending interpretation by radiology Small left inguinal hernia, fat containing History of pulmonary fibrosis and bronchiectasis Reviewing the case, I wonder how much patient had gotten constipated contributing to aspiration and his presentation with gastric distention and such. Does seem to have improved with NG tube decompression thus far though still with significant stool and now barium noted on KUB. Leaving NG tube out Clear liquid diet Try to resume some there are all of patient's usual medications starting with diltiazem and metoprolol for rate control We will change IV metoprolol to as needed We will try to continue Flomax and finasteride Continue gabapentin fentanyl patch We will need to further address her medications if he tolerates these In particular patient remains off of aspirin and Eliquis Decrease IV fluids Has Sheikh catheter, after we get back on Flomax and finasteride will see if we can remove and how he does with voiding Stool for H. pylori antigen is on collected Continue PPI, will need at discharge One-to-one sitter secondary to pulling out NG tube in fall today, for his safety Follow-up radiology interpretation of shoulder and hip x-rays Continue oxygen therapy and breathing treatments as per usual Has been on hospice care secondary to pulmonary disease To be allowed natural Anticipate disposition back to [facility] once medically stable Plans will depend on tolerance of oral intake and how he does clinically with resumption of medications Attestations Medical Necessity Statement*: Requires ongoing inpatient stay while we monitor responsive NG tube coming out and see how he does with oral intake and other management as noted above. Coding Level of Care Code Acute Fashion Consultant Sales for Chg Fwd Diagnoses Hematemesis K92.0 Dysphagia R13.10 Sepsis A41.9 Aspiration pneumonia J69.0 Weakness R53.1 RICHARD (acute kidney injury) N17.9 Iliac artery occlusion I74.5 AAA (abdominal aortic aneurysm) I71.4 Cholelithiasis K80.20 Macrocytic anemia D53.9 Paroxysmal atrial fibrillation with RVR I48.0
[2020-09-17] MEDS: metoprolol succinate ER (24 HR) 25 mg Tablet 12.5 MG PO (22:50)
[2020-09-18] VITALS (13 sets, daily range): BP systolic 143–164; BP diastolic 74–97; PULSE 99–128; RESP 18–28; TEMP 36.6–37.4; O2SAT 93–99
[2020-09-18] MEDS: metoprolol tartrate 1 mg/1 mL SDV 5 mL 2.5 MG IV ×2 (01:11→10:13)
[2020-09-18] MEDS: piperacillin-tazobactam 3.375 GM in sodium chloride 0.9% (plus) 50 ML IV ×3 (01:30→18:19)
[2020-09-18] MEDS: ipratropium-albuterol 3 mL Neb INHALATION ×3 (02:47→20:09)
[2020-09-18] MEDS: morphine 4 mg/mL SDV 1 mL 2 MG IVP (03:53)
[2020-09-18] MEDS: lactated ringers 1,000 ML 75 ML IV (03:57)
[2020-09-18 05:37] LABS: Basophils % 0.3 %; Eosinophils % 0.2 %; Hemoglobin 8.1 g/dL (11.7-16.6); Lymphocytes # 1.3 10^3/uL (0.8-4.8); Lymphocytes % 11.2 %; Mean Corpuscular HGB Conc 28.9 g/dL (30.0-36.0); Mean Corpuscular Hemoglobin 28.6 pg (28.0-34.0); Mean Corpuscular Volume 98.9 fL (80-94); Mean Platelet Volume 10.1 fL (7.4-10.4); Monocytes # 0.9 10^3/uL (0.2-0.9); Monocytes % 7.8 %; Neutrophils # 8.92 10^3/uL (1.8-7.7); Neutrophils % 80.1 %; Nucleated Red Blood Cells % 0 %; Platelet Count 266 10^3/cmm (130-400); Red Blood Count 2.83 10^6/uL (4.1-5.3); Red Cell Distribution Width 15.3 % (12.1-15.1); White Blood Count 11.1 10^3/uL (4.0-10.0)
[2020-09-18 05:52] LABS: Blood Urea Nitrogen 25 mg/dL (8-23); Calcium 8.6 mg/dL (8.5-10.5); Carbon Dioxide 30 mmol/L (22-29); Chloride 101 mmol/L (98-107); Creatinine Clr Calc Pharmacy 66.5341; Glucose 119 mg/dL (65-115); Osmolality Calculated 302 mOsm/kg (285-295); Sodium 143 mmol/L (136-145)
[2020-09-18 05:54] LABS: Anion Gap 15.9 (5-19); Potassium 3.9 mmol/L (3.5-5.1)
[2020-09-18] MEDS: gabapentin 300 mg Capsule PO ×3 (08:27→20:18)
[2020-09-18] MEDS: dilTIAZem ER (12HR) 60 mg Capsule PO ×2 (08:27→18:20)
[2020-09-18] MEDS: ferrous gluconate 324 mg Tablet PO (08:28)
[2020-09-18] MEDS: pantoprazole 40 mg SDV IVP ×2 (08:32→18:14)
--- NOTE | 2020-09-18 08:59 | P.PN_ITS ---
Subjective Subjective: Interval history: Mr. Santillan continues to complain of pain in right shoulder and right hip. Reviewed x-rays again. I am presuming that I looked at the left shoulder x-ray twice yesterday and missed looking at the right shoulder x-ray. He has a humeral neck fracture that is very evident. I discussed with him that I had missed this and took full responsibility for it. I did look at his hip x-rays bilaterally. With the hardware I did not note anything myself. I did not ask for radiology official interpretation last night. Additional film was done this morning and a crosstable view does show a proximal femur fracture at the level of the lesser trochanter. Again I have notified patient and apologize for missing these yesterday. As long as he is not moving his pain is tolerable at the moment. I have contacted orthopedics who will see him. He is not on any anticoagulation secondary to hematemesis at admission. He was incidentally found to have a AAA at 5.[address] imaging. Has a history of coronary artery disease but has not had any complaints of chest pain. Had a aspiration event with some transient A. fib with RVR. Had been on chronic anticoagulation with Eliquis. Last dose was on September 15. Has been held since admission. Had been off of rate controlling medications secondary to n.p.o. status. Tablet form was resumed yesterday. Is tachycardic today. Other than pain in the shoulder and hip though no new complaints. Tolerating clear liquids. Has had a bowel movement. Attempts to reach son or other family thus far unsuccessful as number in chart is not active anymore and the other number is for [facility]. We got a number from [facility] that was different from what we had on file but it also went straight to voicemail. We will continue efforts to reach family to notify them. Medications: Reviewed: Yes Vitals/I&O/Wt Last Vital Signs Temp 98.3 F 09/18/20 07:48 Pulse 125 H 09/18/20 07:48 Resp 20 H 09/18/20 07:48 BP 159/84 09/18/20 07:48 Pulse Ox 95 09/18/20 07:48 09/17/20 09/18/20 09/18/20 22:59 06:59 14:59 Intake Total 50 / 1100 1000 / 2100 Output Total 220 / 520 650 / 1170 Balance -170 / 580 350 / 930 Physical Exam Const: OTHER: Alert, oriented to person, reoriented to place, cooperative HENMT: OTHER: NG tube out Eye: OTHER: Pupils equally round Neck/C-Spine: OTHER: Supple Resp: OTHER: Clear to auscultation bilaterally, no rales, rhonchi or wheezes noted Cardio: OTHER: Regular rate and rhythm GI: OTHER: Abdomen soft, nontender, nondistended with positive bowel sounds Extremity: NARRATIVE EXTREMITY EXAM: Pain noted with palpation of right shoulder and right hip. Right lower extremity is internally rotated. no edema Neuro: OTHER: Face symmetric, speech clear, moves all extremities Psych: OTHER: Normal affect Skin: OTHER: Skin dry, no bruising noted to hip Urinary Catheter Management^: Sheikh: Cath Placed During This Visit: yes Reason for Continuing Indwelling Catheter: Accurate Measurement of Urinary Output in Critically Ill Patients Urinary Catheter Date of Insertion: 09/16/20 Urinary Catheter Time of Insertion: 02:10 Data : 09/18/20 04:45 09/18/20 04:45 A&P Assessment and plan (1) Fracture, proximal femur: Status: Acute Qualifiers: Encounter type: initial encounter Fracture type: closed Laterality: right Qualified Code(s): S72.001A - Fracture of unspecified part of neck of right femur, initial encounter for closed fracture (2) Fx humeral neck: Status: Acute Qualifiers: Encounter type: initial encounter Fracture type: closed Laterality: right Qualified Code(s): S42.211A - Unspecified displaced fracture of surgical neck of right humerus, initial encounter for closed fracture (3) Fall from bed: Status: Acute Qualifiers: Encounter type: initial encounter Qualified Code(s): W06.XXXA - Fall from bed, initial encounter (4) Hematemesis: Present on admission primarily is coffee ground emesis. Contents from NG tube output continued to be brown in nature. No bright red blood. Received 1 unit of packed red blood cells on September 15. Status: Acute Qualifiers: Nausea presence: with nausea Qualified Code(s): K92.0 - Hematemesis (5) Dysphagia: Swallow study was done today. No carl aspiration but certainly at risk for such. Recommendation was for soft diet with thin liquids. Status: Acute (6) Sepsis: As evidenced by leukocytosis, tachycardia, fever at admission. [place] secondary to aspiration pneumonia. Improved. Status: Acute (7) Aspiration pneumonia: On Zosyn and oxygen therapy Status: Acute Qualifiers: Aspiration pneumonia type: due to regurgitated food Laterality: unspecified laterality Lung location: unspecified part of lung Qualified Code(s): J69.0 - Pneumonitis due to inhalation of food and vomit (8) Weakness: Multifactorial Status: Acute (9) RICHARD (acute kidney injury): Off of home lisinopril. Has been on fluids. 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 Right internal iliac is patent. Status: Chronic (11) AAA (abdominal aortic aneurysm): Incidentally noted, measuring 5.1 cm in the AP dimension in the suprarenal aortic region Status: Chronic Qualifiers: Presence of rupture: without rupture Qualified Code(s): I71.4 - Abdominal aortic aneurysm, without rupture (12) Cholelithiasis: Incidentally noted on CT imaging Status: Acute Qualifiers: Cholelithiasis location: gallbladder Cholecystitis presence: without cholecystitis Biliary obstruction: without biliary obstruction Qualified Code(s): K80.20 - Calculus of gallbladder without cholecystitis without obstruction (13) Macrocytic anemia: B12 and folate within normal limits Status: Acute (14) Paroxysmal atrial fibrillation with RVR: Currently on IV metoprolol given n.p.o. status Status: Chronic Additional A&P Information Small left inguinal hernia, fat containing History of pulmonary fibrosis and bronchiectasis Orthopedic consultation N.p.o. presently in the potential event he can go to surgery today with the exception of medications IV metoprolol for rate control Add morphine for breakthrough pain control Home fentanyl patch was resumed yesterday as was gabapentin, will continue both Continue laxative therapy Continue Sheikh catheter From a preoperative standpoint, patient has been off of Eliquis since September 15. He was found to have a 5.1 cm infrarenal aortic aneurysm incidentally. He does have some pulmonary fibrosis, and has been on hospice care for this. He has known atrial fibrillation currently with RVR. From a pain control standpoint however proceeding with surgical intervention is reasonable course of action though will defer to orthopedics for plan. We will repeat EKG Patient came from [facility] Will discussed need for Covid testing both preoperatively and for disposition Had some drop in H&H which I suspect is related to the fractures Remains on PPI and will need at discharge, H. pylori antigen was negative Continue one-to-one sitter currently Remains on Zosyn for aspiration with improvement in white blood count and respiratory status Continue current oxygenation Continue Flomax and finasteride Ultimately planned disposition currently back to [facility] but will need skilled placement at least initially Again reviewed with patient findings from studies. He is aware of plan for orthopedic consultation and potential for surgery and agreeable to such. We will continue efforts to get in touch with family to notify them. Attestations Medical Necessity Statement*: Requires ongoing inpatient stay for continued management of both presenting condition in which we were working on advancing diet, rate control of atrial fibrillation after being off of medications as well as now for fracture management status post fall Coding Level of Care Code Acute Nanny/Household Manager for Pratibhag Fwd Diagnoses Fracture, proximal femur S72.001A Encounter type: initial encounter Fracture type: closed Laterality: right Fx humeral neck S42.211A Encounter type: initial encounter Fracture type: closed Laterality: right Fall from bed W06.XXXA Encounter type: initial encounter Hematemesis K92.0 Nausea presence: with nausea Dysphagia R13.10 Sepsis A41.9 Aspiration pneumonia J69.0 Aspiration pneumonia type: due to regurgitated food Laterality: unspecified laterality Lung location: unspecified part of lung Weakness R53.1 RICHARD (acute kidney injury) N17.9 Iliac artery occlusion I74.5 AAA (abdominal aortic aneurysm) I71.4 Presence of rupture: without rupture Cholelithiasis K80.20 Cholelithiasis location: gallbladder Cholecystitis presence: without cholecystitis Biliary obstruction: without biliary obstruction Macrocytic anemia D53.9 Paroxysmal atrial fibrillation with RVR I48.0
[2020-09-18] MEDS: LORazepam 2 mg/mL INJ 1 mL 0.5 MG IVP ×2 (09:32→13:46)
--- NOTE | 2020-09-18 09:36 | ECG_ITS ---
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1945 Requested By: Makayla Barros Order Number: [id number] Joey MD: KHALIDA PINEDA Measurements Intervals [place] Rate: 116 P: OR: QRS: 37 QRSD: 97 T: 98 QT: 355 QTc: 494 Interpretive Statements ATRIAL FIBRILLATION WITH RAPID VENTRICULAR RESPONSE LOW QRS VOLTAGE IN EXTREMITY LEADS [QRS DEFLECTION < 0.5 mV IN LIMB LEADS] ST DEVIATION AND MODERATE T-WAVE ABNORMALITY, CONSIDER ANTERIOR ISCHEMIA [-0.1+ mV T WAVE IN V3/V4] Compared to ECG 09/15/2020 22:45:17 T-wave abnormality now present Possible ischemia now present Myocardial infarct finding no longer present Electronically Signed On 09-20-2020 15:34:35 [place] [facility] ATTENDANT by KHALIDA PINEDA [id number]
[2020-09-18] MEDS: metoprolol succinate ER (24 HR) 25 mg Tablet 12.5 MG PO ×2 (09:57→20:18)
--- NOTE | 2020-09-18 11:47 | PC.NURSE ---
patient refused to hold arm still. i asked several times if he would. he responded with a no. psa in the room
--- NOTE | 2020-09-18 12:42 | P.CONIM_ITS ---
Providers/Reason For Consult Consulting Physican/Specialty*: hospitalist Reason for Consult*: Right hip and proximal humerus fracture Attending Physician: Makayla Barros MD History of Present Illness History of Present Illness Yassine Santillan Sr is a 74 year old male admitted to the hospital for other medical reasons. I was consulted because he fell out of bed last night and is having hip and shoulder pain on the right. Patient has dementia and not able to get a good history from the patient. Review of Systems General: Reports: ROS unobtainable due to mental status Meds/Allergies Home Medications and Allergies Home Medications Medication Instructions Recorded Confirmed Last Taken Type acetaminophen 325 mg PO QID PRN 09/16/20 09/16/20 09/14/20 12:58 History albuterol sulfate 2 inh INHALATION Q2H PRN 09/16/20 09/16/20 08/20/20 17:19 History apixaban [Eliquis] 5 mg PO BID 09/16/20 09/16/20 09/15/20 06:34 History aspirin 81 mg PO DAILY 09/16/20 09/16/20 09/15/20 06:34 History lckhutwjhi-jrqgste-mqzd chlor 1 ea MUCOUS MEMBRANE QID PRN 09/16/20 09/16/20 Unknown History [Orajel 3X Mouth Sores] bisacodyl [Dulcolax (bisacodyl)] 10 mg MO DAILY PRN 09/16/20 09/16/20 08/23/20 07:24 History budesonide-formoterol [Symbicort] 2 puff INHALATION BID 09/16/20 09/16/20 09/15/20 06:34 History cholecalciferol (vitamin D3) 25 mcg PO DAILY 09/16/20 09/16/20 09/15/20 06:34 History cyclobenzaprine 5 mg PO TID PRN 09/16/20 09/16/20 09/14/20 12:58 History diltiazem HCl 60 mg PO BID 09/16/20 09/16/20 09/15/20 06:34 History fentanyl 1 patch TRANSDERMAL Q72H 09/16/20 09/16/20 09/13/20 13:11 History ferrous gluconate 324 mg PO DAILY 09/16/20 09/16/20 09/15/20 06:34 History finasteride 5 mg PO BEDTIME 09/16/20 09/16/20 09/14/20 19:17 History gabapentin 300 mg PO TID 09/16/20 09/16/20 09/15/20 13:03 History guaifenesin [Mucinex] 600 mg PO TID 09/16/20 09/16/20 09/15/20 13:03 History lisinopril 40 mg PO DAILY 09/16/20 09/16/20 09/14/20 07:38 History lorazepam [Lorazepam Intensol] 0.25 mg PO Q2H PRN 09/16/20 09/16/20 08/18/20 19:01 History magnesium hydroxide [Milk of 30 ml PO DAILY PRN 09/16/20 09/16/20 08/22/20 14:40 History Magnesia] melatonin 3 mg PO BEDTIME 09/16/20 09/16/20 09/14/20 19:17 History methyl salicylate-menthol [Icy Hot] 1 applic TOPICAL BID PRN 09/16/20 09/16/20 Unknown History metoprolol succinate 12.5 mg PO BID 09/16/20 09/16/20 09/14/20 19:17 History morphine concentrate 15 mg PO Q2H PRN 09/16/20 09/16/20 09/14/20 07:08 History ondansetron 4 mg PO Q4H PRN 09/16/20 09/16/20 09/06/20 12:39 History sennosides-docusate sodium [Senna 2 tab-cap PO BEDTIME 09/16/20 09/16/20 09/14/20 19:17 History Plus] sodium phosphates [Fleet Enema] 118 ml MO DAILY PRN 09/16/20 09/16/20 Unknown History tamsulosin 0.4 mg PO BEDTIME 09/16/20 09/16/20 09/14/20 19:17 History Allergies Allergy/AdvReac Type Severity Reaction Status Date / Time No Known Allergies Allergy Verified 09/17/20 20:18 Current Medications Current Medications Generic Name Dose Route Start Last Admin Trade Name Freq PRN Reason Stop Dose Admin Albuterol/Ipratropium 3 ml 09/16/20 21:02 09/18/20 07:31 Ipratropium-Albuterol 3 Ml Neb INHALATION 3 ml Q6H PRN Administration SHORTNESS OF BREATH Diltiazem HCl 60 mg 09/18/20 09:00 09/18/20 08:27 Diltiazem Er (12hr) 60 Mg Capsule PO 60 mg BID VINCE Administration Fentanyl 1 patch 09/17/20 21:15 09/17/20 22:55 Fentanyl 75 Mcg Patch TRANSDERMA 1 patch Q72H VINCE Administration Ferrous Gluconate 324 mg 09/18/20 09:00 09/18/20 08:28 Ferrous Gluconate 324 Mg Tablet PO 324 mg DAILY VINCE Administration Gabapentin 300 mg 09/18/20 09:00 09/18/20 08:27 Gabapentin 300 Mg Capsule PO 300 mg TID VINCE Administration Piperacillin Sod/Tazobactam 50 mls @ 12.5 mls/hr 09/16/20 02:00 09/18/20 11:56 Sod 3.375 gm/ Sodium Chloride IV 12.5 mls/hr Q8H VINCE Administration Protocol Lactated Ringer's 1,000 mls @ 75 mls/hr 09/16/20 18:30 09/18/20 03:57 Lactated Ringers IV 75 mls/hr .[id number] VINCE Administration Lorazepam 0.5 mg 09/17/20 21:10 09/18/20 09:32 Lorazepam 2 Mg/Ml Inj 1 Ml IVP 0.5 mg Q12H PRN Administration ANXIETY Metoprolol Succinate 12.5 mg 09/17/20 21:15 09/18/20 09:57 Metoprolol Succinate Er (24 Hr) 25 Mg Tablet PO 12.5 mg Q12H VINCE Administration Metoprolol Tartrate 2.5 mg 09/17/20 21:15 09/18/20 10:13 Metoprolol Tartrate 1 Mg/1 Ml Sdv 5 Ml IV 2.5 mg Q6H PRN Administration unable to take po metoprolol Pantoprazole Sodium 40 mg 09/16/20 09:00 09/18/20 08:32 Pantoprazole 40 Mg Sdv IVP 40 mg BID VINCE Administration Senna/Docusate Sodium 2 tab 09/18/20 09:00 09/18/20 09:12 Sennosides-Docusate Tablet PO Not Given BID VINCE PFSH Acute PFSH: Medical History (Updated 09/18/20 @ 09:26 by Makayla Barros MD) Anticoagulant prescribed Atrial fibrillation Back pain CAD (coronary artery disease) COPD (chronic obstructive pulmonary disease) Diabetes DNR (do not resuscitate) Hospice care patient Hypertension Presence of hip joint prosthesis Pulmonary interstitial fibrosis Surgical History H/O abdominal surgery H/O angioplasty H/O hernia repair Previous back surgery S/P AAA repair Family History Other Family history non-contributory Social History Alcohol intake: never Substance/Drug Use: never Housing: Longterm Vitals/I&O/Wt Last Vital Signs Temp 97.9 F 09/18/20 11:46 Pulse 125 H 09/18/20 07:48 Resp 20 H 09/18/20 07:48 BP 159/84 09/18/20 07:48 Pulse Ox 95 09/18/20 07:48 09/17/20 09/18/20 09/18/20 22:59 06:59 14:59 Intake Total 50 / 1100 1050 / 2150 120 / 120 Output Total 220 / 520 650 / 1170 Balance -170 / 580 400 / 980 120 / 120 Physical Exam Narrative: EXAM NARRATIVE: Patient's right leg is abducted to the right pulses are intact. Do not see any obvious abrasions. Urinary Catheter Management^: Sheikh: Cath Placed During This Visit: yes Reason for Continuing Indwelling Catheter: Accurate Measurement of Urinary Output in Critically Ill Patients Urinary Catheter Date of Insertion: 09/16/20 Urinary Catheter Time of Insertion: 02:10 A&P Additional A&P Information X-rays show a right greater trochanter fracture on the proximal femur. As well as a right proximal humerus fracture both are minimally to nondisplaced. At this point plan is to treat the patient nonoperatively. Patient can have a sling to the right shoulder for comfort. And patient can weight-bear as tolerated in the right hip however should not do any abduction movements. Patient should have a repeat x-ray in 2 weeks. I can do this in the clinic if he is able to come there. Coding Level of Care Code Acute Recreation Therapy Aide for Javon Mata
[2020-09-18] MEDS: metoprolol tartrate 1 mg/1 mL SDV 5 mL 5 MG IV (15:12)
--- NOTE | 2020-09-18 15:26 | DCPLANNER ---
Pg 2 of IM updated and attempted review with pt. If he was ready for d/c, which he isn't, we would attempt to explain to family, if any available or facility. Yesterday he seemed to be more oriented than he is today.
--- NOTE | 2020-09-18 15:48 | PC.NURSE ---
i reported the high bp to the nurse 157/97 110p
[2020-09-18 17:20] LABS: Hematocrit 27.4 % (42.0-52.0)
[2020-09-18] MEDS: finasteride 5 mg Tablet PO (20:18)
[2020-09-18] MEDS: tamsulosin 0.4 mg Capsule PO (20:19)
[2020-09-19] VITALS (14 sets, daily range): BP systolic 111–153; BP diastolic 64–84; PULSE 67–111; RESP 16–26; TEMP 36.4–37.1; O2SAT 91–100
[2020-09-19] MEDS: metoprolol tartrate 1 mg/1 mL SDV 5 mL 2.5 MG IV (00:08)
[2020-09-19] MEDS: lactated ringers 1,000 ML 75 ML IV (00:41)
[2020-09-19] MEDS: piperacillin-tazobactam 3.375 GM in sodium chloride 0.9% (plus) 50 ML IV ×3 (02:48→17:36)
[2020-09-19] MEDS: LORazepam 2 mg/mL INJ 1 mL 0.5 MG IVP (03:01)
[2020-09-19 05:27] LABS: Basophils # 0.1 10^3/uL (0.0-0.1); Basophils % 0.5 %; Eosinophils # 0.2 10^3/uL (0.0-0.8); Eosinophils % 1.8 %; Hemoglobin 8.3 g/dL (11.7-16.6); Lymphocytes # 1.7 10^3/uL (0.8-4.8); Lymphocytes % 14.6 %; Mean Corpuscular HGB Conc 28.6 g/dL (30.0-36.0); Mean Corpuscular Hemoglobin 28.5 pg (28.0-34.0); Mean Corpuscular Volume 99.7 fL (80-94); Mean Platelet Volume 9.7 fL (7.4-10.4); Monocytes # 1.1 10^3/uL (0.2-0.9); Monocytes % 9.5 %; Neutrophils # 8.74 10^3/uL (1.8-7.7); Neutrophils % 73.2 %; Nucleated Red Blood Cells % 0 %; Platelet Count 272 10^3/cmm (130-400); Red Blood Count 2.91 10^6/uL (4.1-5.3); Red Cell Distribution Width 15.5 % (12.1-15.1); White Blood Count 11.9 10^3/uL (4.0-10.0)
[2020-09-19 05:43] LABS: Anion Gap 11.2 (5-19); Blood Urea Nitrogen 19 mg/dL (8-23); Carbon Dioxide 32 mmol/L (22-29); Chloride 103 mmol/L (98-107); Glucose 116 mg/dL (65-115); Osmolality Calculated 299 mOsm/kg (285-295); Potassium 3.2 mmol/L (3.5-5.1); Sodium 143 mmol/L (136-145)
[2020-09-19 05:57] LABS: Calcium 8.6 mg/dL (8.5-10.5)
[2020-09-19] MEDS: ipratropium-albuterol 3 mL Neb INHALATION ×3 (07:51→23:32)
[2020-09-19] MEDS: sennosides-docusate Tablet 2 TAB PO ×2 (07:52→17:36)
[2020-09-19] MEDS: pantoprazole 40 mg SDV IVP ×2 (07:52→17:36)
[2020-09-19] MEDS: gabapentin 300 mg Capsule PO ×3 (07:52→20:18)
[2020-09-19] MEDS: ferrous gluconate 324 mg Tablet PO (07:52)
[2020-09-19] MEDS: metoprolol succinate ER (24 HR) 25 mg Tablet 12.5 MG PO ×2 (07:52→20:18)
[2020-09-19] MEDS: dilTIAZem ER (12HR) 60 mg Capsule PO ×2 (07:52→17:36)
--- NOTE | 2020-09-19 08:02 | PC.RESP ---
Pt. WOB treatemt given. nurse notified. Resp. giving Dr. calderón
[2020-09-19 08:24] LABS: Magnesium 2.1 mg/dL (1.7-2.3)
[2020-09-19] MEDS: morphine 4 mg/mL SDV 1 mL IVP ×2 (09:27→19:31)
--- NOTE | 2020-09-19 17:50 | PC.NURSE ---
SHIFT SUMMARY PATIENT WAS WORKING VERY HARD TO BREATHE WHEN I ARRIVED THIS MORNING. PATIENT MOVING MINIMAL AIR ON THE LEFT SIDE. RESPIRATORY ADMINISTERED BREATHING TREATMENT. PATIENT THEN BEGAN TO BREATHE EASIER AND STARTED TO HAVE A SMALL PRODUCTIVE COUGH. PATIENT HAS BEEN ON 5LNC THROUGHOUT THE DAY. THIS NURSE ADMINISTERED MORPHINE LATE THIS AM FOR PAIN. PATIENT HAS BEEN ABLE TO REST THE MAJORITY OF THE DAY. MINIMAL PO INTAKE. CURRENTLY RESTING IN BED.
[2020-09-19] MEDS: finasteride 5 mg Tablet PO (20:18)
[2020-09-19] MEDS: tamsulosin 0.4 mg Capsule PO (20:18)
--- NOTE | 2020-09-19 22:08 | P.PN_ITS ---
Subjective Subjective: Interval history: Patient's pain is doing better. I had ordered a GI soft diet which she is having a little bit of trouble with so we will change to soft mechanical per his request. Doing better with assistance. Sling is in place. Breathing is been a bit worse today which it does sometimes. No new complaints. Another bowel movement. Vitals/I&O/Wt Last Vital Signs Temp 98.1 F 09/19/20 19:32 Pulse 98 09/19/20 19:45 Resp 18 09/19/20 19:32 BP 138/77 09/19/20 19:32 Pulse Ox 93 09/19/20 19:32 09/19/20 09/19/20 09/19/20 06:59 14:59 22:59 Intake Total 50 / 1270 530 / 530 Output Total 250 / 700 300 / 300 Balance -200 / 570 530 / 530 -300 / 230 Physical Exam Const: OTHER: Alert, oriented to person, seems a little grumpy today but cooperative Eye: OTHER: Resp: OTHER: Coarse breath sounds today, increased wheezes and some upper airway noise noted Cardio: OTHER: Regular rate and rhythm GI: OTHER: Abdomen soft, nontender, nondistended with positive bowel sounds Extremity: NARRATIVE EXTREMITY EXAM: Right upper extremity in splint, turned so that he is not bearing weight on his right hip. Neuro: OTHER: Face symmetric, can wiggle fingers and move toes, speech clear Urinary Catheter Management^: Sheikh: Cath Placed During This Visit: yes Reason for Continuing Indwelling Catheter: Acute Urinary Retention or Obstruction Urinary Catheter Date of Insertion: 09/16/20 Urinary Catheter Time of Insertion: 02:10 Data : 09/19/20 04:20 09/19/20 04:20 A&P Assessment and plan (1) Fx humeral neck: Status: Acute Qualifiers: Encounter type: initial encounter Fracture type: closed Laterality: right Qualified Code(s): S42.211A - Unspecified displaced fracture of surgical neck of right humerus, initial encounter for closed fracture (2) Fracture of greater trochanter of left femur: Status: Acute Qualifiers: Encounter type: initial encounter Fracture alignment: nondisplaced Fracture type: closed Qualified Code(s): S72.115A - Nondisplaced fracture of greater trochanter of left femur, initial encounter for closed fracture (3) Fall from bed: Status: Acute Qualifiers: Encounter type: initial encounter Qualified Code(s): W06.XXXA - Fall from bed, initial encounter (4) Hematemesis: Present on admission primarily is coffee ground emesis. Contents from NG tube output continued to be brown in nature. No bright red blood. Received 1 unit of packed red blood cells on September 15. Status: Acute Qualifiers: Nausea presence: with nausea Qualified Code(s): K92.0 - Hematemesis (5) Dysphagia: Swallow study was done today. No carl aspiration but certainly at risk for such. Recommendation was for soft diet with thin liquids. Status: Acute (6) Sepsis: As evidenced by leukocytosis, tachycardia, fever at admission. [place] secondary to aspiration pneumonia. Improved. Status: Acute (7) Aspiration pneumonia: On Zosyn and oxygen therapy Status: Acute Qualifiers: Aspiration pneumonia type: due to regurgitated food Laterality: unspecified laterality Lung location: unspecified part of lung Qualified Code(s): J69.0 - Pneumonitis due to inhalation of food and vomit (8) Weakness: Multifactorial Status: Acute (9) RICHARD (acute kidney injury): Off of home lisinopril. Has been on fluids. 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 Right internal iliac is patent. Status: Chronic (11) AAA (abdominal aortic aneurysm): Incidentally noted, measuring 5.1 cm in the AP dimension in the suprarenal aortic region Status: Chronic Qualifiers: Presence of rupture: without rupture Qualified Code(s): I71.4 - Abdominal aortic aneurysm, without rupture (12) Cholelithiasis: Incidentally noted on CT imaging Status: Acute Qualifiers: Biliary obstruction: without biliary obstruction Cholecystitis presence: without cholecystitis Cholelithiasis location: gallbladder Qualified Code(s): K80.20 - Calculus of gallbladder without cholecystitis without obstruction (13) Macrocytic anemia: B12 and folate within normal limits Status: Acute (14) Paroxysmal atrial fibrillation with RVR: Currently on IV metoprolol given n.p.o. status Status: Chronic Additional A&P Information Small left inguinal hernia, fat containing History of pulmonary fibrosis and bronchiectasis Appreciate Dr. Dillon's assistance, currently plan for nonoperative management and follow-up in 2 weeks with repeat x-rays Monitor response to increased diet Continue home fentanyl and morphine for breakthrough pain If continues to tolerate the diet will consider disposition back to [facility] with hospice care tomorrow Add oral morphine for pain for fractures in tablet form, utilizing liquid morphine for respiratory distress Will transition to oral antibiotics Continue laxative therapy Continue Sheikh catheter to assist with urine output and the patient being managed for 2 different fractures with known respiratory disease and prostatic issues H&H stable from yesterday Remains on PPI and will need at discharge, H. pylori antigen was negative Discontinue one-to-one sitter as has not required recently Continue current oxygenation Continue Flomax and finasteride Have not yet been able to get in touch with patient's family to notify them of fractures Eliquis has been held since admission. Given transfusion earlier in hospital stay and incidentally identified AAA at 5.1 cm. With multiple fractures, recent Covid infection, deconditioning and weakness/bedrest patient is at risk for thromboembolic event but also at risk of bleeding. Attempted to discuss with the patient briefly. Given drop in hemoglobin last couple of days, I have chosen not to resume full anticoagulation. Allow natural Attestations Medical Necessity Statement*: Requires ongoing inpatient stay while we see if we can advance his diet with tolerance. If so and no other acute issues overnight anticipate disposition back to [facility] with hospice care tomorrow along with pain control and continued oral antibiotics. Coding Level of Care Code Acute Product Marketing Director for Javon Mata Diagnoses Fx humeral neck S42.211A Encounter type: initial encounter Fracture type: closed Laterality: right Fracture of greater trochanter of left femur S72.115A Encounter type: initial encounter Fracture alignment: nondisplaced Fracture type: closed Fall from bed W06.XXXA Encounter type: initial encounter Hematemesis K92.0 Nausea presence: with nausea Dysphagia R13.10 Sepsis A41.9 Aspiration pneumonia J69.0 Aspiration pneumonia type: due to regurgitated food Laterality: unspecified laterality Lung location: unspecified part of lung Weakness R53.1 RICHARD (acute kidney injury) N17.9 Iliac artery occlusion I74.5 AAA (abdominal aortic aneurysm) I71.4 Presence of rupture: without rupture Cholelithiasis K80.20 Biliary obstruction: without biliary obstruction Cholecystitis presence: without cholecystitis Cholelithiasis location: gallbladder Macrocytic anemia D53.9 Paroxysmal atrial fibrillation with RVR I48.0
[2020-09-20] VITALS (8 sets, daily range): BP systolic 109–142; BP diastolic 60–77; PULSE 93–103; RESP 16–20; TEMP 36.7–37.2; O2SAT 91–96
[2020-09-20] MEDS: morphine 4 mg/mL SDV 1 mL IVP ×2 (01:36→07:19)
[2020-09-20] MEDS: piperacillin-tazobactam 3.375 GM in sodium chloride 0.9% (plus) 50 ML IV (01:48)
--- NOTE | 2020-09-20 05:08 | PC.NURSE ---
shift summary Patient seems to be doing much better tonight with having the breathing treatments. He is spitting up thick yellow tinged mucous. He has had a lot of pain this shift with morphine given. His heart rate had been better staying in the 90's and low 100's this shift. No additional metoprolol needed this shift.
[2020-09-20] MEDS: lactated ringers 1,000 ML 75 ML IV (07:18)
[2020-09-20] MEDS: gabapentin 300 mg Capsule PO (07:18)
[2020-09-20] MEDS: pantoprazole 40 mg SDV IVP (07:18)
[2020-09-20] MEDS: metoprolol succinate ER (24 HR) 25 mg Tablet 12.5 MG PO (07:18)
[2020-09-20] MEDS: sennosides-docusate Tablet 2 TAB PO (07:19)
[2020-09-20] MEDS: dilTIAZem ER (12HR) 60 mg Capsule PO (07:19)
[2020-09-20] MEDS: ferrous gluconate 324 mg Tablet PO (07:19)
--- NOTE | 2020-09-20 08:59 | PC.RESP ---
UNABLE TO GIVE SVN AT THIS TIME. PT COVID TEST PENDING AND PT NOT IN NEGATIVE PRESSURE ROOM.
--- NOTE | 2020-09-20 09:51 | PC.SOCIAL ---
IMM Update Pg. 2 of IMM updated and copy provided to patient.
--- NOTE | 2020-09-20 11:30 | P.DS_ITS ---
Discharge Providers Date of Admission: 09/15/20 23:05 Date of Discharge: September 20, 2020 Attending Provider at Admission: Deja Resendez MD Attending Provider at Discharge: Makayla Barros MD Consults: Dr. Dillon with orthopedics Diagnoses at Discharge Discharge Diagnosis (1) Fx humeral neck: Status: Acute Qualifiers: Encounter type: initial encounter Fracture type: closed Laterality: right Qualified Code(s): S42.211A - Unspecified displaced fracture of surgical neck of right humerus, initial encounter for closed fracture (2) Fracture of greater trochanter of left femur: Status: Acute Qualifiers: Encounter type: initial encounter Fracture alignment: nondisplaced Fracture type: closed Qualified Code(s): S72.115A - Nondisplaced fracture of greater trochanter of left femur, initial encounter for closed fracture (3) Fall from bed: Status: Acute Qualifiers: Encounter type: initial encounter Qualified Code(s): W06.XXXA - Fall from bed, initial encounter (4) Hematemesis: Status: Resolved Permanent problem details: Treated with PPI, H. pylori stool antibody negative but stool antigen is pending, endoscopic evaluation not performed, Eliquis stopped, received 1 unit of blood Qualifiers: Nausea presence: with nausea Qualified Code(s): K92.0 - Hematemesis (5) Dysphagia: Status: Acute Permanent problem details: No carl aspiration on modified barium swallow but recommendation was for soft mechanical diet with thin liquids Qualifiers: Dysphagia type: other dysphagia Qualified Code(s): R13.19 - Other dysphagia (6) Sepsis: Status: Resolved Qualifiers: Sepsis acute organ dysfunction status: with acute organ dysfunction Sepsis type: sepsis due to unspecified organism Severe sepsis acute organ dysfunction type: encephalopathy Severe sepsis shock status: without septic shock Qualified Code(s): A41.9 - Sepsis, unspecified organism; R65.20 - Severe sepsis without septic shock; G93.40 - Encephalopathy, unspecified (7) Aspiration pneumonia: Status: Acute Qualifiers: Aspiration pneumonia type: due to regurgitated food Laterality: unspecified laterality Lung location: unspecified part of lung Qualified Code(s): J69.0 - Pneumonitis due to inhalation of food and vomit (8) Weakness: Status: Chronic (9) RICHARD (acute kidney injury): Status: Resolved (10) Iliac artery occlusion: Status: Chronic (11) AAA (abdominal aortic aneurysm): Status: Chronic Qualifiers: Presence of rupture: without rupture Qualified Code(s): I71.4 - Abdominal aortic aneurysm, without rupture (12) Cholelithiasis: Status: Chronic Qualifiers: Biliary obstruction: without biliary obstruction Cholecystitis presence: without cholecystitis Cholelithiasis location: gallbladder Qualified Code(s): K80.20 - Calculus of gallbladder without cholecystitis without obstruction (13) Macrocytic anemia: Status: Acute (14) Paroxysmal atrial fibrillation with RVR: Status: Chronic Other Information Additional DC diagnoses/information: Pulmonary fibrosis and bronchiectasis for which patient is on hospice care History of Covid infection Acute encephalopathy resolved Significant gastric distention requiring NG tube decompression, suspect in part related to constipation from narcotics Left inguinal hernia, fat-containing Reason for Visit Reason for Visit: VOMITING BLOOD Hospital Course Hospital Course Mr. Santillan presented with some hematemesis and coffee-ground emesis. He was found to have significant gastric distention. Specific etiology of this was not fully identified. On modified barium swallow no sign of obstruction was noted. He did have evidence of constipation and by primary thought is that he had become constipated, associated with decreased motility and temporary gastric outlet obstruction leading to the vomiting and subsequent coffee-ground emesis and hematemesis secondary to anticoagulation with Eliquis. He did receive 1 unit of packed red blood cells in the emergency room. NG tube decompression was done. Initially difficulty maintaining NG tube as he pulled it out a couple of times. He improved however and diet was slowly introduced starting with clears and advancing to soft mechanical. Speech recommended soft mechanical diet with supplements and thin liquids. No evidence of aspiration was identified. He was covered empirically for possibility of aspiration pneumonia. This is in the setting of his known pulmonary fibrosis and bronchiectasis combined with recent Covid infection also impacted his respiratory status. Clinically met criteria for sepsis without shock at presentation, this is now resolved. At times he had difficulty breathing requiring extra pulmonary toilet and transient increase in oxygen requirement. He feels like he is back to his baseline at this point in time from this standpoint. In terms of the hematemesis, have put him on PPI with plan for 2 weeks treatment. With the PPI and antibiotic therapy I have added lactobacillus. I inadvertently left these 2 medications off of the initial [facility] so tablets have been provided for the next 24 hours given the holiday. Patient did have some acute kidney injury at presentation which resolved with IV fluids. Lisinopril was initially held but can be resumed as blood pressure tolerates. Mr. Santillan did have some transient A. fib with RVR felt secondary to not being on his oral diltiazem and metoprolol combined with respiratory issues. Rate has been controlled since reinitiation. On September 17, patient, who had been improving from a mental status standpoint had an episode in which he tried to get up out of bed by himself. Nursing staff was in the room right away though did not witness the fall. He was found lying on his right side. Initially complained of pain in his left hip and shoulder. Imaging studies ended up revealing a proximal humerus fracture and a greater trochanteric fracture on the right side. Patient was seen by Dr. Dillon with orthopedics. Nonoperative management currently with patient to be weightbearing as tolerated with no abductor movements currently for the hip and to have the right upper extremity in a sling for comfort. Additional pain control with oral morphine tablets has been added in this regard. Given difficulty with ambulation and prostatic hypertrophy chronically on finasteride and Flomax, I have continued Sheikh catheter presently. He did have acute urinary retention at presentation as well which I suspect was due to constipation. Can evaluate for Sheikh catheter removal as appropriate. We did utilize a one-to-one sitter transiently due to confusion, which I think is due to the acute events at presentation. This was able to be stopped and since patient's fall he has not actually required one-to-one care for safety although has needed assistance with meals and other activities of daily living. Was incidentally found on CT imaging to have AAA Recommend maintenance of good bowel regimen to help decrease recurrence of GI issues Patient son Yassine Santillan Jr. was updated on hospital course including fractures after fall prior to discharge. Mr. Yassine SantillanSr. was given an opportunity to ask questions and was agreeable with plan back to [facility] with resumption of hospice. Physical Exam Const: OTHER: Alert, oriented to person place and situation currently, better spirits today, pain controlled HENMT: OTHER: Moist mucous membranes Neck/C-Spine: OTHER: Supple Resp: OTHER: Scattered wheezes, improved overall aeration Cardio: OTHER: Regular rate and rhythm GI: OTHER: Abdomen soft, nontender, nondistended with positive bowel sounds Extremity: NARRATIVE EXTREMITY EXAM: Right upper extremity in splint, able to move hand, right hip not as tender and current positioning Neuro: OTHER: Face symmetric, can wiggle fingers and move toes, speech clear Urinary Catheter Management^: Sheikh: Cath Placed During This Visit: yes Reason for Continuing Indwelling Catheter: Acute Urinary Retention or Obstruction Urinary Catheter Date of Insertion: 09/16/20 Urinary Catheter Time of Insertion: 02:10 Discharge Data Data Completed and Pending: Completed Studies During Hospitalization Category Date Time Status CT abdomen pelvis w con* [id number] Urge nt Cat Scan 09/15/20 19:[address] head wo con* 7 0450 Stat Cat Scan 09/15/20 23:15 Completed Modified barium s wallow [FL barium swallow modifd 742 30 Exams 09/17/20 08:00 Completed ] Routine XR KUB 22574 Rout ine Exams 09/17/20 15:44 Completed XR chest 1V [id number] Stat Exams 09/16/20 00:30 Completed XR chest 1V sandra ble [id number] Routine Exams 09/16/20 18:35 Completed XR chest 1V sandra ble [id number] Urgent Exams 09/15/20 19:26 Completed XR hip BI 3-4V wo /w pel [id number] Routi ne Exams 09/17/20 18:02 Completed XR shoulder LT mi n 2V* [id number] Routin e Exams 09/17/20 18:02 Completed XR shoulder RT mi n 2V* [id number] Routin e Exams 09/17/20 18:02 Completed Pending at discharge Category Date Time Status Helicobacter Pylo ri AG Stool Routin e Lab 09/19/20 00:00 Received PTC COVID [[place] virus Lab Test PTC ] Routine Lab 09/18/20 12:25 Received H. pylori stool antibody was negative however antigen is sent and pending Laboratory Last Values WBC 11.9 10^3/uL (4.0 -10.0) H 09/19/20 04:20 RBC 2.91 10^6/uL (4.1 -5.3) L 09/19/20 04:20 Hgb 8.3 g/dL (11.7-16 .6) L 09/19/20 04:20 Hct 29.0 % (42.0-52.0 ) L 09/19/20 04:20 MCV 99.7 fL (80-94) H 09/19/20 04:20 MCH 28.5 pg (28.0-34. 0) 09/19/20 04:20 MCHC 28.6 g/dL (30.0-3 6.0) L 09/19/20 04:20 RDW 15.5 % (12.1-15.1 ) H 09/19/20 04:20 Plt Count 272 10^3/cmm (130 -400) 09/19/20 04:20 MPV 9.7 fL (7.4-10.4) 09/19/20 04:20 Neut % (Auto) 73.2 % 09/19/20 04:20 Lymph % (Auto) 14.6 % 09/19/20 04:20 Hardin % (Auto) 9.5 % 09/19/20 04:20 Eos % (Auto) 1.8 % 09/19/20 04:20 Baso % (Auto) 0.5 % 09/19/20 04:20 Neut # (Auto) 8.74 10^3/uL (1.8 -7.7) H 09/19/20 04:20 Lymph # (Auto) 1.7 10^3/uL (0.8- 4.8) 09/19/20 04:20 Hardin # (Auto) 1.1 10^3/uL (0.2- 0.9) H 09/19/20 04:20 Eos # (Auto) 0.2 10^3/uL (0.0- 0.8) 09/19/20 04:20 Baso # (Auto) 0.1 10^3/uL (0.0- 0.1) 09/19/20 04:20 Nucleated RBC % (a uto) 0 % 09/19/20 04:20 Nucleated RBCs # 0.0 /100WBC 09/19/20 04:20 PT 19.50 SECONDS (12 .1-14.9) H 09/15/20 19:47 INR 1.59 (0.8-1.2) H 09/15/20 19:47 APTT 38.3 SECONDS (23. 9-36.7) H 09/15/20 19:47 Specimen Type Arterial 09/15/20 19:34 Sample Site Radial, left 09/15/20 19:34 ABG pH 7.47 (7.35-7.45) H 09/15/20 19:34 ABG pCO2 42.7 mmHg (35-45) 09/15/20 19:34 ABG pO2 61.9 mmHg (80.0-1 00.0) L 09/15/20 19:34 ABG HCO3 30.7 mmol/L (22-2 6) H 09/15/20 19:34 ABG Base Excess 6.3 mmol/L (-2.0- 2.0) H 09/15/20 19:34 [facility] Test Pos 09/15/20 19:34 Hematocrit 29.6 % (42-52) L 09/15/20 19:34 O2 Delivery Device Nc 09/15/20 19:34 O2 Liters/Min 4.5 % 09/15/20 19:34 FiO2 38.0 % 09/15/20 19:34 Data Collection Associate ID Monro 09/15/20 19:34 Sodium 143 mmol/L (136-1 45) 09/19/20 04:20 Potassium 3.2 mmol/L (3.5-5 .1) L 09/19/20 04:20 Chloride 103 mmol/L (98-10 7) 09/19/20 04:20 Carbon Dioxide 32 mmol/L (22-29) H 09/19/20 04:20 Anion Gap 11.2 (5-19) 09/19/20 04:20 BUN 19 mg/dL (8-23) 09/19/20 04:20 Creatinine 1.0 mg/dL (0.7-1. 2) 09/19/20 04:20 GFR Calculation Not Reportable 09/19/20 04:20 Glucose 116 mg/dL (65-115 ) H 09/19/20 04:20 POC Glucose 110 mg/dL (70-110 ) 09/17/20 13:16 Calculated Osmolal ity 299 mOsm/kg (285- 295) H 09/19/20 04:20 Lactate 1.6 mmol/L (0.5-2 .2) 09/15/20 19:47 Calcium 8.6 mg/dL (8.5-10 .5) 09/19/20 04:20 Magnesium 2.1 mg/dL (1.7-2. 3) 09/19/20 04:20 Total Bilirubin 0.6 mg/dL (0.15-1 .2) 09/15/20 19:47 AST 18 U/L (0-40) 09/15/20 19:47 ALT 9 U/L (0-41) 09/15/20 19:47 Alkaline Phosphata se 104 IU/L (40-130) 09/15/20 19:47 Total Protein 8.0 g/dL (6.6-8.7 ) 09/15/20 19:47 Albumin 3.3 g/dL (3.5-5.2 ) L 09/15/20 19:47 Globulin 4.7 g/dL (1.3-4.6 ) H 09/15/20 19:47 Vitamin B12 569 pg/mL (232-12 45) 09/17/20 05:31 Folate 4.8 ng/mL (4.5-32 .2) 09/17/20 05:31 H. pylori IgG Anti body Negative (Negati ve) 09/16/20 05:13 Blood Type O Positive 09/15/20 19:47 Rho(D) Type Positive 09/15/20 19:47 Antibody Screen Negative 09/15/20 19:47 Crossmatch See Detail 09/15/20 19:47 Imaging^: CT Abd/Pel: Radiologist's impression: 09/15 FINDINGS: Limitations: Metallic artifact from bilateral hip prostheses limits visualization of the lower pelvis. Lungs: Interstitial fibrosis and mild bronchiectasis noted at the lung bases. Liver: The liver is unremarkable in appearance. Gallbladder and bile ducts: Gallbladder contains multiple tiny gallstones in the dependent portion. No gallbladder wall thickening. No biliary dilatation. Pancreas: The pancreas is normal in appearance. Spleen: The spleen is normal in size and appearance. Adrenal glands: The adrenal glands appear within normal limits. Kidneys and ureters: Cortical scarring of the left kidney. There is a simple appearing 1.8 cm left renal cyst. No solid renal masses. No calculus or hydronephrosis on either side. Stomach and bowel: The stomach is distended with fluid and air, but appears morphologically normal. No acute abnormality of the small bowel demonstrated. Moderate retained stool throughout the colon. No inflammatory change of the colon. Appendix: No evidence of appendicitis. Intraperitoneal space: No pneumoperitoneum. No significant fluid collection. Vasculature: Abdominal aorta is atherosclerotic. There is diffuse aneurysmal dilatation of the abdominal aorta. The suprarenal aorta measures 5.1 cm in AP dimension in the sagittal plane. 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 The right common iliac measures 2.4 cm in diameter, unchanged. Left common iliac artery is mildly ectatic without carl aneurysm. 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 Right internal iliac is patent. Lymph nodes: No pathologically enlarged lymph nodes. Urinary bladder: The urinary bladder is unremarkable in appearance. Reproductive: Unremarkable as visualized. Bones/joints: Bilateral hip prostheses are noted. Postop changes and degeneration of the spine noted. Soft tissues: Small left inguinal hernia noted, containing only fat. CT/CT abdomen pelvis w con* [id number] IMPRESSION: 1. Metallic artifact from bilateral hip prostheses limits visualization of the lower pelvis. 2. The stomach is distended with fluid and air, but appears morphologically normal. Gastric distention is a new finding when compared to the previous study, however the source of hematemesis is not identified. 3. Gallbladder contains multiple tiny gallstones in the dependent portion. No gallbladder wall thickening. No biliary dilatation. 4. Abdominal aorta is atherosclerotic. There is diffuse aneurysmal dilatation of the abdominal aorta. The suprarenal aorta measures 5.1 cm in AP dimension in the sagittal plane. This is unchanged from 03/25/2019. 5. 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 The right common iliac measures 2.4 cm in diameter, unchanged. 6. Left common iliac artery is mildly ectatic without carl aneurysm. 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 Right internal iliac is patent. This is unchanged. 7. Small left inguinal hernia noted, containing only fat. CT Head: Radiologist's impression: 09/15 FINDINGS: Brain: Diffuse mild cerebral age related volume loss. Mild patchy low attenuation in the white matter compatible with mild chronic small vessel ischemic disease. No midline shift, mass, fluid collection, or evidence of hemorrhage. Small chronic right thalamic lacunar infarct. Cerebral ventricles: Ventricular enlargement proportional to volume loss. Bones/joints: Unremarkable. No acute fracture. Paranasal sinuses: Minimal paranasal sinus mucosal thickening. Mastoid air cells: Visualized mastoid air cells are well aerated. Soft tissues: Unremarkable. CT/CT head wo con* [id number] IMPRESSION: 1. Mild involutional changes, no acute intracranial abnormality. 2. Small chronic right thalamic lacunar infarct. modified barium swallow: Radiologist's impression: 09/17 FINDINGS: Videofluoroscopy was performed during the upright swallowing of small barium meals of varying texture and volume. Detailed report of the swallowing will be reported by speech therapy. Nasogastric tube is in place. No obstruction of the mid or distal esophagus was identified. KUB: Radiologist's impression: 09/17 FINDINGS: Tubes, catheters and devices: Unidentified catheter tubing over the left abdomen pelvis. Gastrointestinal tract: Normal. No bowel dilation. Bones/joints: Stable bilateral total hip replacement. Severe lumbar spondylosis. Other findings: There are postoperative changes over the left upper quadrant abdomen. Residual oral contrast loops of left-sided small-bowel. XR/XR KUB [id number] IMPRESSION: 1. There are postoperative changes over the left upper quadrant abdomen. 2. Residual oral contrast loops of left-sided small-bowel. 3. Unidentified catheter tubing over the left abdomen pelvis. Xray Ortho: Radiologist's impression: Right shoulder 09/17 FINDINGS: Multi part fracture of the right humeral head at the surgical neck. Fracture fragments are not significantly displaced and remain aligned with the glenoid fossa. Degenerative arthropathy in the acromioclavicular joint with joint space narrowing and osteophytic spurring. No other significant findings. XR/XR shoulder RT min 2V* [id number] IMPRESSION: Right humeral head fracture as above. Other Xray: Radiologist's impression: Hip/pelvis FINDINGS: LEFT HIP: Total left hip arthroplasty. The left hip arthroplasty is relatively unchanged compared to previous examination 09/19/2018. No fracture identified. Surgical appliance remains properly positioned. RIGHT HIP: Crosstable lateral demonstrates a fracture through the proximal right femur at the level of the lesser trochanter. Surgical appliance remains in position. XR/XR hip BI 3-4V wo/w pel [id number] IMPRESSION: Fracture proximal right femur as above. Vitals: Last Vital Signs Temp 98.0 F 09/20/20 11:08 Pulse 99 09/20/20 11:08 Resp 16 09/20/20 11:08 BP 109/62 09/20/20 11:08 Pulse Ox 95 09/20/20 11:08 Discharge Plan Discharge Patient Disposition: Xfer SNF Condition: Stable Prescriptions: New ipratropium-albuterol 0.5 mg-3 mg(2.5 mg base)/3 mL Solution For Nebulization 3 ml inhalation Q6H.RESPIRATORY Qty: 120 RF: 0 morphine 15 mg tablet 15 mg PO Q6H PRN (Reason: pain) Qty: 30 RF: 0 Cipro 500 mg tablet 500 mg PO BID Qty: 10 RF: 0 metronidazole 500 mg tablet 500 mg PO BID 5 Days Qty: 10 RF: 0 Lactobacillus acidophilus Capsule 10,000 mmu cells PO BID Qty: 60 RF: 0 pantoprazole 40 mg tablet,delayed release (DR/EC) 40 mg PO BID 14 Days Qty: 28 RF: 0 Continued acetaminophen 325 mg Tablet 325 mg PO QID PRN (Reason: Pain) RF: 0 morphine concentrate 100 mg/5 mL (20 mg/mL) Solution 15 mg PO Q2H PRN (Reason: air hunger) RF: 0 Milk of Magnesia 400 mg/5 mL Suspension 30 ml PO DAILY PRN (Reason: Constipation) RF: 0 tamsulosin 0.4 mg Capsule 0.4 mg PO BEDTIME RF: 0 Dulcolax (bisacodyl) 10 mg Suppository 10 mg OR DAILY PRN (Reason: Constipation) RF: 0 Fleet Enema 19-7 gram/118 mL Enema 118 ml OR DAILY PRN (Reason: Constipation) RF: 0 gabapentin 300 mg Capsule 300 mg PO TID RF: 0 aspirin 81 mg Tablet 81 mg PO DAILY RF: 0 diltiazem HCl 60 mg Capsule,Extended Release 12 Hr 60 mg PO BID RF: 0 methyl salicylate-menthol Ointment 1 applic TOPICAL BID PRN (Reason: Pain) RF: 0 metoprolol succinate 25 mg Tablet Extended Release 24 Hr 12.5 mg PO BID RF: 0 fentanyl 75 mcg/hr Patch 72 Hour 1 patch TRANSDERMAL Q72H RF: 0 lisinopril 40 mg Tablet 40 mg PO DAILY RF: 0 ondansetron 4 mg Tablet,Disintegrating 4 mg PO Q4H PRN (Reason: Nausea And Vomiting) RF: 0 Lorazepam Intensol 2 mg/mL Concentrate 0.25 mg PO Q2H PRN (Reason: Anxiety) RF: 0 finasteride 5 mg Tablet 5 mg PO BEDTIME RF: 0 cholecalciferol (vitamin D3) 25 mcg (1,000 unit) Capsule 25 mcg PO DAILY RF: 0 cyclobenzaprine 5 mg Tablet 5 mg PO TID PRN (Reason: Muscle Spasm) RF: 0 Symbicort 160-4.5 mcg/actuation Hfa Aerosol Inhaler 2 puff INHALATION BID RF: 0 ferrous gluconate 324 mg (37.5 mg iron) Tablet 324 mg PO DAILY RF: 0 Mucinex 600 mg Tablet Extended Release 12hr 600 mg PO TID RF: 0 melatonin 3 mg Capsule 3 mg PO BEDTIME RF: 0 albuterol sulfate 90 mcg/actuation Aero Powdr Breath Act W/Sensor 2 inh INHALATION Q2H PRN (Reason: Shortness Of Breath) RF: 0 Senna Plus 8.6-50 mg Capsule 2 tab-cap PO BEDTIME RF: 0 Orajel 3X Mouth Sores 20-0.1-0.15 % Gel 1 ea MUCOUS MEMBRANE QID PRN (Reason: soreness) RF: 0 Held Eliquis 5 mg Tablet 5 mg PO BID RF: 0 Hold Instructions: Unless otherwise directed by physician to resume. Held due to required 1 unit of blood in hospital, and incidentally found to have 5.1 cm AAA. At risk for clotting with fractures and decreased mobility since COVID infection. Discharge Orders: Discharge Order (Routine); Ordered 09/20/20 Ordered By: Makayla Barros Referrals: Elmer Dillon DO [Physician] - 2 weeks (follow up of right humerus and right greater trochanter while in hospital. will need xrays with follow up appointment) Discharge Diet: Soft Mechanical Discharge Activity: Limit activity as instructed and Oxygen as instructed Patient Instructions: Ciprofloxacin (By mouth), Metronidazole (By mouth), Morphine, Slow Release (By mouth) Activity Restrictions/Additional Instructions: From Dr Dillon notes regarding fractures: X-rays show a right greater trochanter fracture on the proximal femur. As well as a right proximal humerus fracture both are minimally to nondisplaced. At this point plan is to treat the patient nonoperatively. Patient can have a sling to the right shoulder for comfort. And patient can weight-bear as tolerated in the right hip however should not do any abduction movements. Patient should have a repeat x-ray in 2 weeks. I can do this in the clinic if he is able to come there. Resume hospice care Out of bed with assistance only Continue oxygen therapy at 4 to 5 L by nasal cannula Soft mechanical diet Ensure regular bowel movements Home medications are as noted previously with the exception of the Eliquis Eliquis has been held due to to hematemesis and anemia requiring transfusion of 1 unit of blood. Also incidentally found to have a 5.1 cm aortic aneurysm. At significant risk of both thrombosis and bleeding. Can reevaluate for anticoagulation as appropriate. Cipro and Flagyl are for presumptive aspiration pneumonitis/pneumonia and to continue for 5 days Added morphine immediate release tablets to assist with pain control secondary to fractures Kevin Santillan Jr. was notified of fractures and hospital course prior to discharge Allow natural Discharge Attestations Time Spent in Discharge Care*: greater than 30 min Specific Discharge Activities: educating patient, discussing with case resource manager/social workers/dc planners, documenting/other paperwork and evaluating patient/reviewing data Other discharge activites (optional): Updated kevin Yassine Santillan Jr. of hospital course Status at Discharge: Cognitive status at discharge: mildly impaired cognition , Behavioral status at discharge: cooperative , Functional status at discharge: other assisted ambulation (Weight-bear as tolerated, out of bed with assistance only) Overall status at discharge: patient is not back to baseline Quality Metrics Clinical Quality Measures During this hospital stay, did patient experience: None Coding Level of Care Code Acute Pumper Gager Apprentice for Chg Fwd Diagnoses Fx humeral neck S42.211A Encounter type: initial encounter Fracture type: closed Laterality: right Fracture of greater trochanter of left femur S72.115A Encounter type: initial encounter Fracture alignment: nondisplaced Fracture type: closed Fall from bed W06.XXXA Encounter type: initial encounter Hematemesis K92.0 Nausea presence: with nausea Dysphagia R13.19 Dysphagia type: other dysphagia Sepsis A41.9; R65.20; G93.40 Sepsis acute organ dysfunction status: with acute organ dysfunction Sepsis type: sepsis due to unspecified organism Severe sepsis acute organ dysfunction type: encephalopathy Severe sepsis shock status: without septic shock Aspiration pneumonia J69.0 Aspiration pneumonia type: due to regurgitated food Laterality: unspecified laterality Lung location: unspecified part of lung Weakness R53.1 RICHARD (acute kidney injury) N17.9 Iliac artery occlusion I74.5 AAA (abdominal aortic aneurysm) I71.4 Presence of rupture: without rupture Cholelithiasis K80.20 Biliary obstruction: without biliary obstruction Cholecystitis presence: without cholecystitis Cholelithiasis location: gallbladder Macrocytic anemia D53.9 Paroxysmal atrial fibrillation with RVR I48.0
--- NOTE | 2020-09-20 13:52 | PC.OT ---
OT ATTEMPTED HOWEVER PATIENT DISCHARGED PRIOR TO THERAPY ATTEMPT.
[2020-09-20 14:39] LABS: Coronavirus Lab Test PTC Negative
== END 2020-09-20 13:50 | disposition hospice, inpatient (51) | DRG 871 ==
LOC: ER 20:10 → MEDSURG 23:35
PROVIDERS: Internal Medicine; Admitting Provider Internal Medicine; Emergency Provider Emergency Medicine; Family Provider Emergency Medicine Emergency Medical Services; Visit Provider Hospitalist
DX: A41.9 Sepsis, unspecified organism (principal); J69.0 Pneumonitis due to inhalation of food and vomit; S72.091A Other fracture of head and neck of right femur, initial encounter for closed fracture; S42.211A Unspecified displaced fracture of surgical neck of right humerus, initial encounter for closed fracture; K92.0 Hematemesis; I74.5 Embolism and thrombosis of iliac artery; J44.0 Chronic obstructive pulmonary disease with (acute) lower respiratory infection; N17.9 Acute kidney failure, unspecified; I71.4 Abdominal aortic aneurysm, without rupture; J84.10 Pulmonary fibrosis, unspecified; Z86.19 Personal history of other infectious and parasitic diseases; I95.9 Hypotension, unspecified; Z99.81 Dependence on supplemental oxygen; Z66 Do not resuscitate; I48.0 Paroxysmal atrial fibrillation; M54.9 Dorsalgia, unspecified; I25.10 Atherosclerotic heart disease of native coronary artery without angina pectoris; E11.9 Type 2 diabetes mellitus without complications; I10 Essential (primary) hypertension; Z96.642 Presence of left artificial hip joint; R13.10 Dysphagia, unspecified; Z79.51 Long term (current) use of inhaled steroids; K59.00 Constipation, unspecified; F03.90 Unspecified dementia, unspecified severity, without behavioral disturbance, psychotic disturbance, mood disturbance, and anxiety; K40.90 Unilateral inguinal hernia, without obstruction or gangrene, not specified as recurrent; Z79.01 Long term (current) use of anticoagulants; K80.20 Calculus of gallbladder without cholecystitis without obstruction; R53.1 Weakness; E86.0 Dehydration; D53.9 Nutritional anemia, unspecified; M25.552 Pain in left hip; M25.551 Pain in right hip; M25.512 Pain in left shoulder; M25.511 Pain in right shoulder; W06.XXXA Fall from bed, initial encounter; Y92.230 Patient room in hospital as the place of occurrence of the external cause
CPT/HCPCS: 12345; 36415; 36416; 36430; 36600; 51702; 70450; 71045; 73030; 73502; 73522; 74018; 74177; 74230; 80048; 80053; 82607; 82746; 82803; 82962; 83605; 83735; 85014; 85018; 85025; 85610; 85730; 86677; 86850; 86900; 86920; 87338; 87635; 92507; 92523; 92610; 92611; 93005; 94640; 96372; 96375; 97161; 97167; 99283; C9113; J1940; J2060; J2270; J2405; J2543; J3490; J7030; P9016; Q9967

== ENCOUNTER 2020-10-10 07:40 | Inpatient (IN) | payer OTHER, MEDICARE, MEDICAID, SELFPAY ==
[2020-10-10] VITALS (31 sets, daily range): BP systolic 83–195; BP diastolic 43–158; PULSE 86–170; RESP 12–32; TEMP 36.2–37.2; O2SAT 82–100; BMI 31.7
--- NOTE | 2020-10-10 08:08 | W.ED.ABDPA2 ---
HPI - Abdominal Pain General: Chief Complaint: Abdominal Pain Stated Complaint: POSSIBLE UPPER GI BLEED Time Seen by Provider: 10/10/20 07:42 History of Present Illness: HPI narrative: 75-year-old male presents with nausea and vomiting with coffee-ground emesis. He is on Eliquis. He he is also on hospice. Per the [facility] they reported coffee-ground emesis with vomiting off and on throughout the night. Patient reports of being bloated and having abdominal pain. He was previously on Eliquis but stopped 3 to 4 days ago. MD elicited complaint: abdominal pain Pertinent past history: gastrointestinal bleeding Onset (ago): hour(s) Pain Consistency: constant Location: Epigastric Severity: severe Quality: cramping Radiation: none Exacerbating factors: vomiting and movement Relieving factors: rest Associated Symptoms: Reports anorexia, bloating, coffee ground emesis, GI cramping and diarrhea; Denies belching, change in bowel habits, change in stool character, chills, constipation, dyspepsia, dysuria, excessive flatus, fever(s), heartburn, hematochezia, hematuria, hematemesis, fecal incontinence, loose stools, melena, nausea, poor appetite, syncope and vomiting Review of Systems Const: Denies: fever(s) or chills Card: Denies: syncope GI: Reports: coffee ground emesis, diarrhea, bloating and GI cramping; Denies: nausea, vomiting, hematemesis, heartburn, constipation, belching, excessive flatus, fecal incontinence, change in bowel habits, change in stool character, hematochezia or melena : Denies: dysuria or hematuria PFSH ED PFSH: Medical History AAA (abdominal aortic aneurysm) Anticoagulant prescribed Atrial fibrillation Back pain CAD (coronary artery disease) Cholelithiasis COPD (chronic obstructive pulmonary disease) Oxygen dependent Diabetes DNR (do not resuscitate) Hospice care patient Hypertension Iliac artery occlusion Paroxysmal atrial fibrillation with RVR Presence of hip joint prosthesis Pulmonary interstitial fibrosis Surgical History H/O abdominal surgery H/O angioplasty H/O hernia repair Previous back surgery S/P AAA repair Family History Other Cancer Family history non-contributory Social History Smoking and tobacco status: former smoker Alcohol intake: never Housing: Custodial Physical Exam Const: COMMON NORMALS: no acute distress GENERAL APPEARANCE: cooperative and comfortable HENMT: COMMON NORMALS: normocephalic, atraumatic and hearing grossly normal bilaterally HEAD & SCALP: normocephalic and atraumatic Eye: COMMON NORMALS: Equal, round and reactive pupils present, EOMs intact bilaterally, conjunctivae normal and no scleral icterus CONJUNCTIVA: Yes conjunctivae normal PUPIL: Yes Equal, round and reactive pupils present Neck/C-Spine: COMMON NORMALS: no JVD Resp: COMMON NORMALS: normal respiratory effort, No retractions, No use of accessory muscles and clear to auscultation bilaterally AUSCULTATION: clear to auscultation bilaterally Cardio: COMMON NORMALS: no JVD, regular rate, regular rhythm and No murmurs present (Cardio) RATE: regular rate RHYTHM: regular rhythm GI: INSPECTION: Yes abdominal distension AUSCULTATION: Yes Absent bowel sounds PALPATION: Yes Tenderness to palpation present (GI) and No Guarding due to palpation present (GI) PERCUSSION: tympanic to percussion Extremity: COMMON NORMALS: normal to inspection, capillary refill normal, no clubbing, cyanosis or edema, no calf tenderness and no pedal edema Skin: COMMON NORMALS: no rashes or lesions noted GENERAL SKIN EXAM: no rashes or lesions noted Course Vital Signs: Vital signs: Vital Signs Temperature 97.2 F L 10/10/20 11:33 Pulse Rate 103 H 10/10/20 11:33 Respiratory Rate 18 10/10/20 11:33 Blood Pressure 101/65 10/10/20 11:33 Pulse Oximetry 100 10/10/20 11:33 MDM - Abdominal Pain MDM Narrative: Medical decision making narrative: Patient has acute perforated viscus with free air in the abdomen. Is been given Protonix and Zosyn. Have discussed with Dr. Valdez he is not on-call however our on-call surgeon is currently tied up with another acute perforated viscus case and has advised us that we should contact Dr. Valdez as it would be too long before he could get to this patient. I have discussed Dr. Valdezson the hospitalist orders are written Lab Data: Labs: Lab Results 10/10/20 10/10/20 10/10/20 Range/Units 07:54 07:54 08:16 WBC 15.6 H (4.0-10.0) 10^3/ uL RBC 3.03 L (4.1-5.3) 10^6/u L Hgb 8.7 L (11.7-16.6) g/dL Hct 28.9 L (42.0-52.0) % MCV 95.4 H (80-94) fL MCH 28.7 (28.0-34.0) pg MCHC 30.1 (30.0-36.0) g/dL RDW 15.3 H (12.1-15.1) % Plt Count 344 (130-400) 10^3/c mm MPV 10.6 H (7.4-10.4) fL Neut % (Auto) 86.4 % Lymph % (Auto) 7.8 % Metcalfe % (Auto) 5.0 % Eos % (Auto) 0.1 % Baso % (Auto) 0.3 % Neut # (Auto) 13.44 H (1.8-7.7) 10^3/u L Lymph # (Auto) 1.2 (0.8-4.8) 10^3/u L Metcalfe # (Auto) 0.8 (0.2-0.9) 10^3/u L Eos # (Auto) 0.0 (0.0-0.8) 10^3/u L Baso # (Auto) 0.1 (0.0-0.1) 10^3/u L Nucleated RBC % (a uto) 0 % Nucleated RBCs # 0.0 /100WBC Sodium 129 L (136-145) mmol/L Potassium 3.3 L (3.5-5.1) mmol/L Chloride 88 L (98-107) mmol/L Carbon Dioxide 29 (22-29) mmol/L Anion Gap 15.3 (5-19) BUN 35 H (8-23) mg/dL Creatinine 1.1 (0.7-1.2) mg/dL GFR Calculation Not Reportable Glucose 137 H (65-115) mg/dL Calculated Osmolal ity 278 L (285-295) mOsm/k g Calcium 8.6 (8.5-10.5) mg/dL Total Bilirubin 0.6 (0.15-1.2) mg/dL AST 14 (0-40) U/L ALT 6 (0-41) U/L Alkaline Phosphata se 124 (40-130) IU/L Total Protein 7.0 (6.6-8.7) g/dL Albumin 2.5 L (3.5-5.2) g/dL Globulin 4.5 (1.3-4.6) g/dL Lipase 16 (13-60) U/L Urine Color Yellow (Yellow) Urine Appearance Hazy A (CLEAR) Urine pH 5 (5-7) Ur Specific Gravit y 1.015 (1.005-1.030) Urine Protein 1+ H (Negative) Urine Glucose (UA) Norm (Normal) Urine Ketones 1+ H (Negative) Urine Blood 3+ H (Negative) Urine Nitrate Negative (Negative) Urine Bilirubin 1+ H (Negative) Urine Urobilinogen 4 H (Negative) mg/dL Ur Leukocyte Chinyere ase 2+ H (Negative) Urine RBC 0-4 H (0-2) /hpf Urine WBC 10-15 H (0-5) /hpf Ur Squamous Epith Cells 0-4 H (0-5) /hpf Amorphous Sediment Not Reportable Urine Bacteria 2+ H (NONE) /hpf Urine Yeast 1+ H /hpf Discharge Plan Discharge Patient Disposition: Admitted As Inpatient Clinical Impression: DU (perforated duodenal ulcer), Free intraperitoneal air, Anemia, Hyponatremia, Hypokalemia Condition: Stable Coding Level of Care Code ED Accounting Software Specialist for Javon Fwd Exam Comprehensive
[2020-10-10 08:33] LABS: Basophils # 0.1 10^3/uL (0.0-0.1); Basophils % 0.3 %; Eosinophils % 0.1 %; Hematocrit 28.9 % (42.0-52.0); Hemoglobin 8.7 g/dL (11.7-16.6); Lymphocytes # 1.2 10^3/uL (0.8-4.8); Lymphocytes % 7.8 %; Mean Corpuscular HGB Conc 30.1 g/dL (30.0-36.0); Mean Corpuscular Hemoglobin 28.7 pg (28.0-34.0); Mean Corpuscular Volume 95.4 fL (80-94); Mean Platelet Volume 10.6 fL (7.4-10.4); Monocytes # 0.8 10^3/uL (0.2-0.9); Neutrophils # 13.44 10^3/uL (1.8-7.7); Neutrophils % 86.4 %; Nucleated Red Blood Cells % 0 %; Platelet Count 344 10^3/cmm (130-400); Red Blood Count 3.03 10^6/uL (4.1-5.3); Red Cell Distribution Width 15.3 % (12.1-15.1); White Blood Count 15.6 10^3/uL (4.0-10.0)
--- NOTE | 2020-10-10 08:40 | CT_ITS ---
WS: [id number] CT ABDOMEN AND PELVIS WITH CONTRAST HISTORY: Possible upper GI bleed. Abdominal pain with vomiting for 2 days. TECHNIQUE: Imaging performed of the abdomen and pelvis with IV contrast. Single phase imaging of the abdomen. Coronal and sagittal reformats are submitted. All CT scans at [facility] use at least one of these dose optimization techniques: automated exposure control; mA and/or kV adjustment per patient size (includes targeted exams where dose is matched to clinical indication); or iterativ e reconstruction. IV CONTRAST: Omnipaque 300; 95 mL IV. Oral contrast: No DLP: 1058.89 mGy.cm COMPARISON: 09/15/2020. Lower thorax: Marked emphysema the lung bases. Normal size heart. No significant hiatal hernia. Dista l thoracic esophagus is tortuous and dilated and similar to prior studies. Liver/biliary system: Normal size with no intrahepatic dilatation. Gallbladder: Normally distended gallbladder with small stones. Pancreas: Marked atrophy of the pancreas. No bile duct dilatation. Spleen: Normal. Adrenal glands: Normal. Right kidney: Diffuse mild cortical atrophy with no obstruction. Left kidney: Cortical atrophy with a few scattered hypodensities. No obstruction. Aorta: Ectatic dilated aorta with a large amount of intimal thickening. Aneurysm of aorta measures 4. 1 cm. Marked dilatation of the proximal RIGHT common iliac artery as seen on the prior exam. There is a large amount of intraperitoneal free air. Most significant amount of air around the spleni c flexure. Lymphadenopathy: None. Free fluid: None. GI tract: Stomach is massively distended with air and fluid. Proximal duodenum is distended. No GI tr act obstruction is identified. There is a large amount of retained oral contrast from a prior CT with in the mid to distal colon. Site of perforation is not evident but there is a large amount of air in the LEFT upper abdomen. Abdominal wall: Unremarkable abdominal wall. No hernia. Pelvis: No free fluid. Artifact from bilateral hip prosthesis is obscuring detail in the pelvis. Bones: No osteoblastic or osteolytic bone disease. Prior bilateral hip prostheses. CT/CT abdomen pelvis w con* [id number] IMPRESSION: 1. Large amount of intraperitoneal free air. Largest pockets of air anterior t o the stomach and in the LEFT upper abdomen surrounding the splenic flexure. Pe rforation site is not evident. 2. Dilated ectatic distal thoracic and abdominal aorta. Maximum diameter of th e infrarenal aorta is 4.1 cm. 3. Marked distention of the stomach and proximal small bowel with fluid and ai r. 4. Bilateral renal atrophy. Notified Ryan Benitez DO at 10/10/2020 10:16 AM.
[2020-10-10 08:43] LABS: Alanine Aminotransferase 6 U/L (0-41); Albumin Level 2.5 g/dL (3.5-5.2); Alkaline Phosphatase 124 IU/L (40-130); Anion Gap 15.3 (5-19); Aspartate Amino Transferase 14 U/L (0-40); Blood Urea Nitrogen 35 mg/dL (8-23); Calcium 8.6 mg/dL (8.5-10.5); Carbon Dioxide 29 mmol/L (22-29); Chloride 88 mmol/L (98-107); Globulin 4.5 g/dL (1.3-4.6); Glucose 137 mg/dL (65-115); Lipase 16 U/L (13-60); Osmolality Calculated 278 mOsm/kg (285-295); Potassium 3.3 mmol/L (3.5-5.1); Sodium 129 mmol/L (136-145); Total Bilirubin 0.6 mg/dL (0.15-1.2)
[2020-10-10 09:09] LABS: Bilirubin Urine 1+ (Negative); Blood Urine 3+ (Negative); Glucose Urine UA Norm (Normal); Ketones Urine 1+ (Negative); Leukocyte Esterase Urine 2+ (Negative); Nitrate Urine Negative (Negative); Protein Urine 1+ (Negative); Specific Gravity, Urine 1.015 (1.005-1.030); Urine Appearance Hazy (CLEAR); Urine Color Yellow (Yellow); Urobilinogen Urine 4 mg/dL (Negative); pH Urine 5 (5-7)
[2020-10-10 09:10] LABS: Add Urine Microscopic? YES
[2020-10-10 09:11] LABS: Bacteria Urine 2+ /hpf; Squamous Epithelial Cell Urine 0-4 /hpf (0-5)
[2020-10-10 09:12] LABS: Add Urine Culture? Yes; RBC Urine 0-4 /hpf (0-2)
--- NOTE | 2020-10-10 09:44 | PC.NURSE ---
Patient to CT at this time.
[2020-10-10] MEDS: iohexol 300 mg/mL 100 mL Btl IV (09:56)
[2020-10-10] MEDS: cefTRIAXone 1,000 MG in sodium chloride 0.9% (plus) 50 ML 100 MG IV (10:05)
--- NOTE | 2020-10-10 10:48 | ECG_ITS ---
[facility] Test Date: 2020-10-10 Pat Name: Yassine Santillan Sr Department: Room: Gender: Male Production Support Developer: : 1945 Requested By: Ryan Deal Order Number: [id number] Joey MD: Aleyda Sherwood M.D. Measurements Intervals [place] Rate: 94 P: IN: QRS: 54 QRSD: 103 T: 74 QT: 356 QTc: 447 Interpretive Statements ATRIAL FIBRILLATION NONSPECIFIC T-WAVE ABNORMALITY ABNORMAL RHYTHM ECG Compared to ECG 09/18/2020 10:09:42 Possible ischemia no longer present T-wave abnormality still present Electronically Signed On 10-11-2020 22:21:24 FACILITY MANAGER HISTOLOGY by Aleyda Sherwood M.D. [email or web address]
[2020-10-10] MEDS: pantoprazole 40 MG in sodium chloride 0.9% (plus) 100 ML 200 MG IV (10:53)
[2020-10-10] MEDS: piperacillin-tazobactam 3.375 GM in sodium chloride 0.9% (plus) 50 ML IV ×2 (10:57→17:19)
--- NOTE | 2020-10-10 10:59 | P.HP_ITS ---
Providers/Chief Complaint Primary Care Provider: Hitesh Francois DO Chief Complaint: POSSIBLE UPPER GI BLEED History of Present Illness Yassine Santillan Sr is a 75 year old male presenting from [facility] with concern of upper GI bleeding. He had some vomiting at the snf, of coffee-ground emesis. Vomiting occurred several days ago. Did not have abdominal discomfort until today. No fever. Past history of Covid late June. He is on hospice, but reports he wants surgery. Family has confirmed this with the ER doctor. Last bowel movement yesterday. No history of any reaction to anesthesia. Review of Systems General: Reports: 10 or more systems reviewed and unremarkable except in HPI and below Const: Denies: fever(s) Eyes: Denies: change in vision ENMT: Denies: throat pain Card: Denies: chest pain Resp: Denies: dyspnea GI: Reports: abdominal pain, nausea and vomiting; Denies: hematochezia or melena : Denies: flank pain Musc: Denies: neck pain Skin/Breast: Denies: rash Neuro: Denies: headache(s) Psych: Denies: anxiety Endo: Denies: polyuria Ergan/Lymph: Denies: easy bruising All/Imm: Denies: urticaria Medications/Allergies Home Medications Medication Instructions Recorded Confirmed Last Taken Type Fleet Enema 118 ml CO DAILY PRN 09/16/20 10/10/20 Unknown History Orajel 3X Mouth Sores 1 ea MUCOUS MEMBRANE QID PRN 09/16/20 10/10/20 Unknown History Senna Plus 2 tab-cap PO BEDTIME 09/16/20 10/10/20 10/09/20 History acetaminophen 325 mg PO QID PRN 09/16/20 10/10/20 09/29/20 History albuterol sulfate 2 inh INHALATION Q2H PRN 09/16/20 10/10/20 08/20/20 17:19 History bisacodyl [Dulcolax (bisacodyl)] 10 mg CO DAILY PRN 09/16/20 10/10/20 08/23/20 07:24 History budesonide-formoterol [Symbicort] 2 puff INHALATION BID 09/16/20 10/10/20 10/09/20 History cyclobenzaprine 5 mg PO TID PRN 09/16/20 10/10/2020 History diltiazem HCl 60 mg PO Q12H 09/16/20 10/10/20 10/09/20 History fentanyl 1 patch TRANSDERMAL Q72H 09/16/20 10/10/20 10/08/20 History ferrous gluconate 324 mg PO DAILY 09/16/20 10/10/20 10/09/20 History finasteride 5 mg PO BEDTIME 09/16/20 10/10/20 10/09/20 History gabapentin 300 mg PO TID 09/16/20 10/10/20 10/10/20 History guaifenesin [Mucinex] 600 mg PO TID 09/16/20 10/10/20 10/10/20 History lisinopril 40 mg PO DAILY 09/16/20 10/10/20 10/07/20 History lorazepam [Lorazepam Intensol] 0.25 mg PO Q2H PRN 09/16/20 10/10/20 10/02/20 History magnesium hydroxide [Milk of 30 ml PO DAILY PRN 09/16/20 10/10/20 08/22/20 14:40 History Magnesia] melatonin 3 mg PO BEDTIME 09/16/20 10/10/20 10/09/20 History methyl salicylate-menthol 1 applic TOPICAL BID PRN 09/16/20 10/10/20 Unknown History metoprolol succinate 12.5 mg PO BID 09/16/20 10/10/20 10/09/20 History morphine concentrate 15 mg PO Q2H PRN 09/16/20 10/10/20 10/09/20 History ondansetron 4 mg PO Q4H PRN 09/16/20 10/10/20 10/06/20 History tamsulosin 0.4 mg PO BEDTIME 09/16/20 10/10/20 10/09/20 History ipratropium-albuterol 3 ml INHALATION Q6H.RESPIRATORY 09/19/20 10/10/20 10/10/20 Rx #120 dose morphine 15 mg PO Q6H PRN #30 tab 09/19/20 10/10/20 10/09/20 Rx Lactobacillus acidophilus 10,000 mmu cells PO BID #60 cap 09/20/20 10/10/20 10/09/20 Rx aspirin 81 mg PO DAILY 1210/10/20 10/09/20 History pantoprazole 40 mg PO BID 10/10/20 10/10/20 10/09/20 History Allergies Allergy/AdvReac Type Severity Reaction Status Date / Time No Known Allergies Allergy Verified 10/02/20 09:36 PFSH Acute PFSH: Medical History AAA (abdominal aortic aneurysm) Anticoagulant prescribed Atrial fibrillation Back pain CAD (coronary artery disease) Cholelithiasis COPD (chronic obstructive pulmonary disease) Diabetes DNR (do not resuscitate) Hospice care patient Hypertension Iliac artery occlusion Paroxysmal atrial fibrillation with RVR Presence of hip joint prosthesis Pulmonary interstitial fibrosis Surgical History H/O abdominal surgery H/O angioplasty H/O hernia repair Previous back surgery S/P AAA repair Family History (Updated 10/10/20 @ 11:07 by Francisco Barba MD) Other Cancer Family history non-contributory Social History (Updated 10/10/20 @ 11:07 by Francisco Barba MD) Smoking and tobacco status: former smoker Alcohol intake: never Housing: Halfway Vitals/I&O/Wt Last Vital Signs Temp 98.5 F 10/10/20 07:41 Pulse 101 H 10/10/20 10:07 Resp 20 H 10/10/20 10:07 BP 195/158 10/10/20 10:07 Pulse Ox 99 10/10/20 10:07 10/09/20 10/10/20 10/10/20 22:59 06:59 14:59 Intake Total 50 / 50 Balance 50 / 50 Weight last 48 hrs Weight 97.522 kg Physical Exam Narrative: EXAM NARRATIVE: General exam is a white male, complaining of upper abdominal pain who is conversant and able to answer questions. HEENT: Atraumatic, normocephalic. Pupils equally round. Oropharynx clear. Neck is supple no lymphadenopathy or thyromegaly Cardiovascular irregular, irregular rhythm without murmur Lungs diminished breath sounds bilaterally. No wheezes or crackles Abdomen is distended. A few bowel sounds are noted. No obvious hepatosplenomegaly deferred Extremities no cyanosis clubbing or edema, cap refill brisk Skin no rash Neuro no focal deficits Data : 10/10/20 07:54 10/10/20 07:54 Other data: LFTs within normal limits. Albumin 2.5. Urinalysis demonstrates 2+ leukocyte Esterase, 0-4 reds, 10-[address] demonstrates large amount of intraperitoneal air without definitive perforation site. Dilated thoracic and abdominal aorta noted. Distention of stomach and small bowel with fluid and air A&P Assessment and plan (1) Free intraperitoneal air: Etiology unsure Admission to ICU Surgery consultation Zosyn IV Protonix 40 mg IV every 12 hours On exam is associated with acute peritonitis Status: Acute (2) GI bleed: Protonix IV every 12 hours Status: Acute (3) Anemia: Secondary to hypotension, established acute upper GI bleed, ER elected to give and transfuse 1 unit of packed red blood cells in route to the OR. Follow hemoglobin closely Repeat hemoglobin in approximately 4 to 6 hours Status: Acute (4) Hyponatremia: Likely secondary to acute illness. Saline Recheck tomorrow Status: Acute (5) Hypokalemia: Supplement potassium Status: Acute (6) UTI (urinary tract infection): Urine culture Zosyn as above Status: Acute (7) Leukocytosis: Secondary to perforated viscus Check blood culture Status: Acute Additional A&P Information Atrial fibrillation. Some rapid ventricular rate currently but mild. As p.o. medication will not be able to be continued, metoprolol 5 mg IV every 6 hours as needed will be ordered if blood pressure tolerates. Anticoagulation contraind icated in the face of GI bleed and pending surgery COPD, oxygen dependent. No evidence of exacerbation currently. Also with history of pulmonary fibrosis. DuoNeb as needed History of Covid by positive test at the nursing facility on July 24. Chronic pain Coronary artery disease History of diabetes, not currently on any treatment Abdominal aortic aneurysm BPH Allow natural SCDs for DVT prophylaxis. Anticoagulation contraindicated is going directly to surgery. Check EKG, chest x-ray Attestations Medical Necessity Statement*: Will need greater than 2 midnight stay for evaluation and treatment of perforated viscus Critical Care Time: 54 minutes of critical care time spent at bedside interviewing patient, discussing with subspecialist in this patient with a perforated viscus, atrial fibrillation with rapid ventricular rate, ongoing GI bleeding and peritonitis with high risk of and decompensation throughout the day. Coding Level of Care Code Acute Senior Major Gifts Officer for Chg Fwd Diagnoses Free intraperitoneal air K66.8 GI bleed K92.2 Anemia D64.9 Hyponatremia E87.1 Hypokalemia E87.6 UTI (urinary tract infection) N39.0 Leukocytosis D72.829
--- NOTE | 2020-10-10 12:07 | ANES.PREANE2 ---
Pre-Anesthetic Assessment Pre-Anesthetic Assessment: Height/Weight: Height 1.75 m Weight 97.522 kg Temp Pulse Resp BP Pulse Ox 97.2 F L 103 H 18 101/65 100 10/10/20 11:33 10/10/20 11:33 10/10/20 11:33 10/10/20 11:33 10/10/20 11:33 Preop Diagnosis: Perforated GI tract Proposed Procedure: Operation Date: 10/10/20 12:50 Proposed Procedures p Laparoscopy(Not Applicable) - Kai Valdez MD Familial anesthetic complications: None Was Beta Nery taken within 24 hours: Yes Last intake: NPO > 8 hrs, water > 2 hrs ago, but perforation and nausea/vomiting Social: Social History: No alcohol and No tobacco Comment: former smoker Exam: Pre-Anes Outpt Exam: alert, oriented x 3, clear to auscultation bilaterally and regular rate & rhythm Additional Exam Findings (including area of procedure): Coarse breath sounds b/l Airway: Cervical ROM: WNL MP: 4 Dentition: False Pulmonary: Pulmonary: COPD (on 5 L NC continuously, barrel chested) Comments: pulmonary interstitial fibrosis CV/HEM: CV/HEM: Afib (paroxysmal a fib w/ rvr - no anticoagulation (rate control)), CAD (angioplsty s/p stent > 1 year ago) and HTN Comments: AAA s/p repair Metabolic: Metabolic: DM Anesthetic Plan: ASA status: 4E Anesthesia: General Other: Patient informed he is high risk for surgery, spoke about possibility of remaining intubated after surgery. Will do A line. Risk of > 500 ml blood loss (7ml/kg in children): No PFSH Anesthesia PFSH: Medical History (Updated 10/10/20 @ 11:41 by Francisco Barba MD) AAA (abdominal aortic aneurysm) Anticoagulant prescribed Atrial fibrillation Back pain CAD (coronary artery disease) Cholelithiasis COPD (chronic obstructive pulmonary disease) Oxygen dependent Diabetes DNR (do not resuscitate) Hospice care patient Hypertension Iliac artery occlusion Paroxysmal atrial fibrillation with RVR Presence of hip joint prosthesis Pulmonary interstitial fibrosis Surgical History H/O abdominal surgery H/O angioplasty H/O hernia repair Previous back surgery S/P AAA repair Family History (Updated 10/10/20 @ 11:07 by Francisco Barba MD) Other Cancer Family history non-contributory Social History (Updated 10/10/20 @ 11:07 by Francisco Barba MD) Smoking and tobacco status: former smoker Alcohol intake: never Housing: Custodial Data Anesthesia CBC & Chem 7: 10/10/20 07:54 10/10/20 07:54 Other Labs: Laboratory Results - last 48 hr 10/10/20 10/10/20 10/10/20 07:54 07:54 08:16 WBC 15.6 H RBC 3.03 L Hgb 8.7 L Hct 28.9 L MCV 95.4 H MCH 28.7 MCHC 30.1 RDW 15.3 H Plt Count 344 MPV 10.6 H Neut % (Auto) 86.4 Lymph % (Auto) 7.8 Morris % (Auto) 5.0 Eos % (Auto) 0.1 Baso % (Auto) 0.3 Neut # (Auto) 13.44 H Lymph # (Auto) 1.2 Morris # (Auto) 0.8 Eos # (Auto) 0.0 Baso # (Auto) 0.1 Nucleated RBC % (auto) 0 Nucleated RBCs # 0.0 Sodium 129 L Potassium 3.3 L Chloride 88 L Carbon Dioxide 29 Anion Gap 15.3 BUN 35 H Creatinine 1.1 GFR Calculation Not Reportable Glucose 137 H Calculated Osmolality 278 L Calcium 8.6 Total Bilirubin 0.6 AST 14 ALT 6 Alkaline Phosphatase 124 Total Protein 7.0 Albumin 2.5 L Globulin 4.5 Lipase 16 Urine Color Yellow Urine Appearance Hazy A Urine pH 5 Ur Specific Soldier 1.015 Urine Protein 1+ H Urine Glucose (UA) Norm Urine Ketones 1+ H Urine Blood 3+ H Urine Nitrate Negative Urine Bilirubin 1+ H Urine Urobilinogen 4 H Ur Leukocyte Esterase 2+ H Urine RBC 0-4 H Urine WBC 10-15 H Ur Squamous Epith Cells 0-4 H Amorphous Sediment Not Reportable Urine Bacteria 2+ H Urine Yeast 1+ H Cardiac Studies: No Data to Display
[2020-10-10] MEDS: sodium chloride 0.9% 1,000 ML 30 ML IV (12:22)
[2020-10-10] MEDS: ondansetron 2 mg/ML SDV 2 mL 4 MG IVP (12:24)
--- NOTE | 2020-10-10 13:09 | P.CONIM_ITS ---
Providers/Reason For Consult Consulting Physican/Specialty*: Dr. Francois Reason for Consult*: Intraperitoneal free air Attending Physician: Kai Valdez MD Primary Care Provider: Hitesh Francois DO History of Present Illness History of Present Illness Yassine Santillan Sr is a 75 year old male who presented to the ER with generalized abdominal pain. Patient states that he has been having generalized abdominal pain intermittently for a few weeks and overnight of severe abdominal pain. Patient also had nausea and vomiting. He thinks he might have had ulcers in the past though is not sure. He is not sure when he had his last colonoscopy. No family of colon cancer. Patient denies any constipation or diarrhea. He states that he had a incisional hernia repair on the left flank in the past. He was on hospice but as per ER documents patient wants to proceed with surgery. Review of Systems General: Reports: 10 or more systems reviewed and unremarkable except in HPI and below Meds/Allergies Home Medications and Allergies Home Medications Medication Instructions Recorded Confirmed Last Taken Type Fleet Enema 118 ml TN DAILY PRN 09/16/20 10/10/20 Unknown History Orajel 3X Mouth Sores 1 ea MUCOUS MEMBRANE QID PRN 09/16/20 10/10/20 Unknown History Senna Plus 2 tab-cap PO BEDTIME 09/16/20 10/10/20 10/09/20 History acetaminophen 325 mg PO QID PRN 09/16/20 10/10/20 09/29/20 History albuterol sulfate 2 inh INHALATION Q2H PRN 09/16/20 10/10/20 08/20/20 17:19 Hist ory bisacodyl [Dulcolax (bisacodyl)] 10 mg TN DAILY PRN 09/16/20 10/10/20 08/23/20 07:24 History budesonide-formoterol [Symbicort] 2 puff INHALATION BID 09/16/20 10/10/20 10/09/20 History cyclobenzaprine 5 mg PO TID PRN 09/16/20 10/10/20 10/07/20 History diltiazem HCl 60 mg PO Q12H 09/16/20 10/10/20 10/09/20 History fentanyl 1 patch TRANSDERMAL Q72H 09/16/20 10/10/20 10/08/20 History ferrous gluconate 324 mg PO DAILY 09/16/20 10/10/20 10/09/20 History finasteride 5 mg PO BEDTIME 09/16/20 10/10/20 10/09/20 History gabapentin 300 mg PO TID 09/16/20 10/10/20 10/10/20 History guaifenesin [Mucinex] 600 mg PO TID 09/16/20 10/10/20 10/10/20 History lisinopril 40 mg PO DAILY 09/16/20 10/10/20 10/07/20 History lorazepam [Lorazepam Intensol] 0.25 mg PO Q2H PRN 09/16/20 10/10/20 10/02/20 History magnesium hydroxide [Milk of 30 ml PO DAILY PRN 09/16/20 10/10/20 08/22/20 14:40 History Magnesia] melatonin 3 mg PO BEDTIME 09/16/20 10/10/20 10/09/20 History methyl salicylate-menthol 1 applic TOPICAL BID PRN 09/16/20 10/10/20 Unknown History metoprolol succinate 12.5 mg PO BID 09/16/20 10/10/20 10/09/20 History morphine concentrate 15 mg PO Q2H PRN 09/16/20 10/10/20 10/09/20 History ondansetron 4 mg PO Q4H PRN 09/16/20 10/10/20 10/06/20 History tamsulosin 0.4 mg PO BEDTIME 09/16/20 10/10/20 10/09/20 History ipratropium-albuterol 3 ml INHALATION Q6H.RESPIRATORY 09/19/20 10/10/20 10/10/20 Rx #120 dose morphine 15 mg PO Q6H PRN #30 tab 09/19/20 10/10/20 10/09/20 Rx Lactobacillus acidophilus 10,000 mmu cells PO BID #60 cap 09/20/20 10/10/20 10/09/20 Rx aspirin 81 mg PO DAILY 10/10/20 10/10/20 10/09/20 History pantoprazole 40 mg PO BID 10/10/20 10/10/20 10/09/20 History Allergies Allergy/AdvReac Type Severity Reaction Status Date / Time No Known Allergies Allergy Verified 10/02/20 09:36 Current Medications Current Medications Generic Name Dose Route Start Last Admin Trade Name Freq PRN Reason Stop Dose Admin Sodium Chloride 1,000 mls @ 30 mls/hr 10/10/20 12:15 10/10/20 12:22 Sodium Chloride 0.9% IV 10/11/20 12:14 30 mls/hr .Q24H VINCE Administration Ondansetron HCl 4 mg 10/10/20 12:03 10/10/20 12:24 Ondansetron 2 Mg/Ml Sdv 2 Ml IVP 4 mg Q5M PRN Administration NAUSEA AND VOMITING PFSH Acute PFSH: Medical History AAA (abdominal aortic aneurysm) Anticoagulant prescribed Atrial fibrillation Back pain CAD (coronary artery disease) Cholelithiasis COPD (chronic obstructive pulmonary disease) Oxygen dependent Diabetes DNR (do not resuscitate) Hospice care patient Hypertension Iliac artery occlusion Paroxysmal atrial fibrillation with RVR Presence of hip joint prosthesis Pulmonary interstitial fibrosis Surgical History H/O abdominal surgery H/O angioplasty H/O hernia repair Previous back surgery S/P AAA repair Family History Other Cancer Family history non-contributory Social History Smoking and tobacco status: former smoker Alcohol intake: never Housing: Jail Vitals/I&O/Wt Last Vital Signs Temp 97.2 F L 10/10/20 11:33 Pulse 103 H 10/10/20 11:33 Resp 18 10/10/20 11:33 BP 101/65 10/10/20 11:33 Pulse Ox 100 10/10/20 11:33 10/09/20 10/10/20 10/10/20 22:59 06:59 14:59 Intake Total 100 / 100 Balance 100 / 100 Weight last 48 hrs Weight 215 lb Physical Exam Narrative: EXAM NARRATIVE: HEENT: Normocephalic Eye: Sclera /conjunctiva normal Respiratory and chest: Bilateral clear breath sounds on auscultation Cardiovascular: Normal S1 and S2 heart sounds Abdomen: Soft to palpation, generalized tenderness with guarding, no rigidity, left flank scar with incisional hernia Neurological: Oriented to place person and time Skin: Intact, no lesions appreciated on gross exam A&P Assessment and plan (1) Free intraperitoneal air: 75-year-old male who presents with abdominal pain and noted on CT scan to have intraperitoneal free air. The exact location of perforation could not be identified on the CT scan. Plan for laparoscopy, possible laparotomy with possible bowel resection. Dr. Sandoval discussed with the family and patient's family wants surgery to be performed. Status: Acute Coding Level of Care Code Acute Director Of Public Safety for [facility] Fwd Diagnoses Free intraperitoneal air K66.8
[2020-10-10 14:31] LABS: Magnesium 1.9 mg/dL (1.7-2.3)
--- NOTE | 2020-10-10 15:00 | ANES.PROC ---
Anesthesia Procedures Procedure/Date: 10/11/20 Arterial Line: Time Out Performed: Yes Consent: from patient, risks and benefits reviewed and patient agrees to proceed Size (Gauge): 20 Technique Used: guide wire technique Post-Procedure: dry sterile dressing placed Patient Tolerated Procedure: well and no complications Complications: none Site: left Additional Comments: Skin cleansed w/ chlorhexidine
--- NOTE | 2020-10-10 15:00 | SUR.OPER ---
1412 75mg Fentanyl patch located on pts abdomen was removed by a fer dao and isabella gay crna. disposed of in biohazard
--- NOTE | 2020-10-10 15:53 | PM.OP ---
Operative Report Date of procedure: October 10, 2020 Pre-op Diagnosis: Intraperitoneal free air Post-op Diagnosis: Perforation posterior gastric wall with intra-abdominal abscess in the lesser sac Procedure Done: Diagnostic laparoscopy converted to exploratory laparotomy with repair of gastric perforation using Arthur's patch Drainage of intra-abdominal abscess Esophagogastroduodenoscopy without biopsy Specimens removed/disposition: Intra-abdominal abscess wall for culture and sensitivity Gastric ulcer biopsy, check H. pylori Surgeon: Kai Valdez Strength And Conditioning Coach: Armando Peterson Anesthesia: General Estimated blood loss (mL): 50 IV fluids (mL): 800 Urine output (mL): 500 Condition: stable Disposition: ICU Procedure: The patient was taken to the operating room and intubated under general anesthesia after IV antibiotic had been administered. A Sheikh catheter and NG tube was placed. The abdomen was prepped and draped in a sterile manner. Using a 15 blade an infraumbilical longitudinal incision was made and using open Thompson technique the peritoneal cavity was entered with escape of intraperitoneal air. A 10 mm port was placed and 15 mm of pneumoperitoneum was created. A 10 mm 30 degree scope was introduced. There was no significant contamination noted within the peritoneal cavity. The stomach was massively distended and could not be decompressed with an NG tube. I therefore decided to convert to an exploratory laparotomy. Using 15 blade skin, subcutaneous tissue, linea alba was divided superior to the umbilicus. The existing NG tube was removed and an 18 Thai NG tube was placed with decompression of the stomach. The anterior wall of the stomach and appeared normal and therefore the anterior leaflet of the greater omentum was identified and divided to enter the lesser sac. Within the lesser sac there was an abscess cavity noted and purulent fluid was suctioned out. The greater omentum was taken down along the greater curvature of the stomach and the fibrinous exudate of the lesser sac was peeled away revealing a perforation in the posterior wall of the body of the stomach along the greater curvature. Interrupted 2-0 silk sutures were placed around the ulcer after biopsy of the gastric ulcer wall was obtained. A tongue of omentum was placed within the gastric perforation and the 2-0 silk sutures were tied down. A gastroscope was introduced and advanced into the stomach and leak test was negative. The esophagus was tortuous but there were no other abnormalities noted. The peritoneal cavity was irrigated with 2 L of warm saline. Using 11 blade an incision was made in the left upper quadrant and a 10 flat KATHLEEN drain was introduced and placed within the lesser sac. The fascia in the midline was closed using #1 looped PDS and skin was closed with jazmin. The drain was sutured with 3-0 Prolene suture and sterile dressings were applied. The patient was transferred to ICU with an NG tube and Sheikh catheter in place.
--- NOTE | 2020-10-10 16:15 | XR_ITS ---
WS: [id number] XR chest 1V portable [id number] REASON FOR EXAM: dyspnea FINDINGS: Nasogastric tube has been placed. The tip is not identifiable on this imaging but appears to be dista l to the fundus of the stomach. Chronic appearing interstitial changes in the lung. Calcified granulomatous disease bilaterally. No a ctive pulmonary parenchymal or pleural disease noted. XR/XR chest 1V portable [id number] IMPRESSION: No acute pulmonary abnormality. Nasogastric tube placement as above.
--- NOTE | 2020-10-10 16:30 | ANE.PACU2 ---
Inpatient post-anesthesia follow up: Airway intact: Yes Vital signs: Temperature 99 F Pulse Rate [Apical ] 109 Pulse Rate 94 Respiratory Rate 25 Blood Pressure [Ri ght Arm] 96/54 Blood Pressure 121/79 Pulse Oximetry 100 Oxygen Delivery Me thod Oxymask Oxygen Flow Rate 15 Fraction of Inspir ed Oxygen Hydration adequate: Yes Nausea and vomiting: No Pain level: 4 Mental status: Baseline
[2020-10-10] MEDS: sodium chloride 0.9% 1,000 ML 125 ML IV (16:34)
[2020-10-10] MEDS: ipratropium-albuterol 3 mL Neb INHALATION ×2 (17:36→21:00)
--- NOTE | 2020-10-10 17:38 | PC.NURSE ---
Per Dr bentley, did not administer unit of blood. HGB = 8.7
--- NOTE | 2020-10-10 17:42 | PC.NURSE ---
late note - at 1600, patient received from surgery staff. Vitals within normal limits. Patient is confused with mumbled speech, but is improving. Sheikh, KATHLEEN drain, and art line came with patient.
[2020-10-10 18:29] LABS: Hematocrit 28.9 % (42.0-52.0); Hemoglobin 8.6 g/dL (11.7-16.6)
--- NOTE | 2020-10-10 20:18 | PC.NURSE ---
N.O. HR 120's to 140's, ART pressure MAP 62-65 with systolic BP 90's to 101, Metoprolol IVP PRN on DEC, this nurse concerned to administer with BP low, pt complained of pain, PRN Morphine on DEC, Dr. Resendez contacted and recieved T.O. for fluid bolus
--- NOTE | 2020-10-10 20:55 | PC.NURSE ---
SVI -2.2 on [facility], Dr. Resendez notifed, recieved T.O. for 500 ml fluid bolus and Amio bolus
[2020-10-10] MEDS: phenylephrine inj 25 MG in sodium chloride 0.9% 250 ML 24.2 MG IV (21:21)
[2020-10-10] MEDS: amiodarone 50 mg/mL SDV 3 mL 150 MG IVP (21:27)
[2020-10-10] MEDS: sodium chloride 0.9% 500 ML 999 ML IV (21:48)
--- NOTE | 2020-10-10 22:03 | PC.NURSE ---
assessment AOx3, follows commands, supine 45 degrees, denies SOB, lungs diminished to RLL, slight ronchi to Bilateral UL, call light within reach
--- NOTE | 2020-10-10 23:24 | PC.NURSE ---
N.O BP 92/43, Phenylephrine currently at 90 mcg/min, Dr. Resendez approved drawing CBC to check H&H
[2020-10-10 23:30] LABS: Basophils # 0.1 10^3/uL (0.0-0.1); Basophils % 0.5 %; Eosinophils % 0.3 %; Hematocrit 27.1 % (42.0-52.0); Hemoglobin 8.2 g/dL (11.7-16.6); Lymphocytes # 1.7 10^3/uL (0.8-4.8); Lymphocytes % 11.1 %; Mean Corpuscular HGB Conc 30.3 g/dL (30.0-36.0); Mean Corpuscular Volume 92.5 fL (80-94); Mean Platelet Volume 9.6 fL (7.4-10.4); Monocytes # 1.3 10^3/uL (0.2-0.9); Monocytes % 8.5 %; Neutrophils # 11.87 10^3/uL (1.8-7.7); Neutrophils % 78.9 %; Nucleated Red Blood Cells % 0 %; Platelet Count 399 10^3/cmm (130-400); Red Blood Count 2.93 10^6/uL (4.1-5.3); Red Cell Distribution Width 15.3 % (12.1-15.1)
--- NOTE | 2020-10-10 23:40 | PC.NURSE ---
N.O. hold fluids and start Amio DrLeonel Resendez notified of crackles to bases and audible gurgling and HR in one teens to 120's, order recieved to hold fluids, and to start Amio drip
[2020-10-10] MEDS: pantoprazole 40 mg SDV IVP (23:47)
[2020-10-11] VITALS (39 sets, daily range): BP systolic 85–154; BP diastolic 46–133; PULSE 65–152; RESP 18–38; TEMP 36.2–36.3; O2SAT 83–100
[2020-10-11] MEDS: piperacillin-tazobactam 3.375 GM in sodium chloride 0.9% (plus) 50 ML IV ×3 (01:00→16:58)
--- NOTE | 2020-10-11 01:22 | XRR_ITS ---
PROCEDURE INFORMATION: Exam: XR Chest, 1 View Exam date and time: 10/11/2020 1:25 AM Age: 75 years old Clinical indication: Dyspnea and shortness of breath; Patient HX: SOB and dyspnea. Hypotensive. ; Additional info: Pulm oedema TECHNIQUE: Imaging protocol: XR of the chest Views: 1 view. COMPARISON: CR XR chest 1V portable [id number] 2020-10-10 16:28 FINDINGS: Lungs: Unchanged pulmonary artery enlargement indicating pulmonary artery hypertension. Bibasilar atelectasis and/or infiltrates. Pleural space: Small left costophrenic angle pleural effusion and/or pleural thickening. Heart/Mediastinum: Unremarkable. No cardiomegaly. Vasculature: Unchanged ectatic aneurysmal aorta. Bones/joints: Unremarkable. XR/XR chest 1V portable [id number] IMPRESSION: 1. Small left costophrenic angle pleural effusion and/or pleural thickening. 2. Unchanged pulmonary artery enlargement indicating pulmonary artery hypertension. 3. Bibasilar atelectasis and/or infiltrates.
--- NOTE | 2020-10-11 01:37 | PC.NURSE ---
change in condition Dr. Resendez notified of increasing Phenylephrine to 140 to maintain BP, increasing in crackles and audible gurgling, STAT CXR order put in by HCP
[2020-10-11] MEDS: phenylephrine inj 25 MG in sodium chloride 0.9% 250 ML 90.9 MG IV (02:00)
--- NOTE | 2020-10-11 02:16 | PC.NURSE ---
Dr. Resendez notified in person of pt's condition, this nurse was informed that HCP would come see pt
--- NOTE | 2020-10-11 02:20 | PC.NURSE ---
new order Received V.O. for Levophed drip and to start Vancomycin
[2020-10-11] MEDS: vancomycin 1,500 MG/300 ML PIGGYBACK 200 MG IV ×2 (03:15→15:38)
--- NOTE | 2020-10-11 03:38 | PC.NURSE ---
Dr. Resendez at bedside, this nurse advised to continue same orders
[2020-10-11] MEDS: phenylephrine inj 25 MG in sodium chloride 0.9% 250 ML 97 MG IV ×2 (04:52→07:58)
[2020-10-11] MEDS: FUROsemide 10 mg/mL SDV 2mL 20 MG IVP (05:01)
[2020-10-11 05:11] LABS: Basophils # 0.1 10^3/uL (0.0-0.1); Basophils % 0.5 %; Eosinophils # 0.1 10^3/uL (0.0-0.8); Eosinophils % 0.4 %; Hematocrit 25.7 % (42.0-52.0); Hemoglobin 7.8 g/dL (11.7-16.6); Lymphocytes % 13.7 %; Mean Corpuscular HGB Conc 30.4 g/dL (30.0-36.0); Mean Corpuscular Hemoglobin 28.4 pg (28.0-34.0); Mean Corpuscular Volume 93.5 fL (80-94); Mean Platelet Volume 9.7 fL (7.4-10.4); Monocytes # 1.3 10^3/uL (0.2-0.9); Monocytes % 9.4 %; Neutrophils % 75.1 %; Nucleated Red Blood Cells % 0 %; Platelet Count 364 10^3/cmm (130-400); Red Blood Count 2.75 10^6/uL (4.1-5.3); Red Cell Distribution Width 15.5 % (12.1-15.1); White Blood Count 14.2 10^3/uL (4.0-10.0)
[2020-10-11] MEDS: acetylcysteine 200 mg/mL SDV 4 mL 100 MG INHALATION (05:30)
[2020-10-11] MEDS: ipratropium-albuterol 3 mL Neb INHALATION (05:30)
[2020-10-11 05:32] LABS: Alanine Aminotransferase 6 U/L (0-41); Alkaline Phosphatase 92 IU/L (40-130); Anion Gap 10.8 (5-19); Aspartate Amino Transferase 12 U/L (0-40); Blood Urea Nitrogen 38 mg/dL (8-23); Calcium 7.3 mg/dL (8.5-10.5); Carbon Dioxide 29 mmol/L (22-29); Chloride 97 mmol/L (98-107); Globulin 3.6 g/dL (1.3-4.6); Glucose 139 mg/dL (65-115); Osmolality Calculated 289 mOsm/kg (285-295); Sodium 134 mmol/L (136-145); Total Bilirubin 0.5 mg/dL (0.15-1.2); Total Protein 5.6 g/dL (6.6-8.7)
[2020-10-11 06:06] LABS: Potassium 2.8 mmol/L (3.5-5.1)
[2020-10-11] MEDS: lidocaine 1% 5 ML in potassium chloride premix 100 ML 25 ML IV ×3 (06:30→20:14)
[2020-10-11] MEDS: LORazepam 2 mg/mL INJ 1 mL 0.5 MG IVP ×3 (07:30→21:07)
[2020-10-11] MEDS: ondansetron 2 mg/ML SDV 2 mL 4 MG IVP ×2 (07:41→14:13)
[2020-10-11 09:19] LABS: Magnesium 1.9 mg/dL (1.7-2.3)
--- NOTE | 2020-10-11 10:49 | PC.NURSE ---
Late note - patient became agitated this morning. Demanded removal of the marino catheter, threatened to pull out NG tub, and leave ama. Patient was agreeable to PRN Ativan for agitation. After giving ativan. Patient became calm and had no other complaints.
--- NOTE | 2020-10-11 10:50 | PC.NURSE ---
Patient removed NG tube and pulled out IV to Left wrist.
--- NOTE | 2020-10-11 12:46 | PC.CHAP ---
Pastoral Care Encounter/Spiritual Assessment Type of Contact [] Declined pyrometer temperature regulator visit [] Patient/Family/Request visit [] Outpatient visit [] Follow-up visit [] Physician referral [] Code/Alert [] Routine visit [] Staff referral [] Actively dying [] Patient sleeping [] Family support [] [] Out of room [] Palliative care [] [] Receiving care in room [] Pre-surgical visit [] Trauma [] Long length of stay [x] ICU visit [] Other: Relational/Emotional Strength [] Patient feels connected with others/family/visitors/staff [] Distress [] Loneliness/isolation [] Abandonment Spirituality of Patient [] Person of Pallavi [] Attends Anglican of their Pallavi [] Believes in Prayer [] Reads Bible or Advent materials [] There are Spiritual issues to be addressed Content Development Manager Interventions [x] Prayer [] Active listening [] Non-anxious presence [] Spiritual/emotional support [] Crisis/trauma care [] Spiritual counseling [] Bereavement support [] Provided bereavement packet [] Provided Bible/devotional materials [] Provided toy/stuffed animal, coloring book to patient or family member [] Provided Communion [] Anointing/[place] [] Salvation [x] Completed spiritual assessment [] Other: Impact on Illness or Injury [] Angry [] Fearful [] Anxious [] Often cries [] Exhaustion [] Unable to work [] Unable to attend yazidi [] Unable to walk/stand [] Unable to read [] Unable to drive [] Unable to eat/drink [] Unable to sleep [] Unable to be with family [] Patient intubated [] Other: Summary Time spent with patient
[2020-10-11] MEDS: pantoprazole 40 mg SDV IVP ×2 (13:00→23:24)
--- NOTE | 2020-10-11 13:37 | P.PN_ITS ---
Subjective Subjective: Interval history: Events of last night noted. He is asleep when I came in as he just received Ativan. He appears comfortable. He was placed on amiodarone last night as well as pressors for A. fib with RVR as well as hypotension. Medications: Reviewed: Yes Vitals/I&O/Wt Last Vital Signs Temp 97.2 F L 10/11/20 07:50 Pulse 103 H 10/11/20 13:16 Resp 24 H 10/11/20 12:03 BP 142/78 10/11/20 12:03 Pulse Ox 93 10/11/20 12:03 10/10/20 10/11/20 10/11/20 22:59 06:59 14:59 Intake Total 598.775 / 565.334 3478.107 / 2690.882 629.133 / 629.133 Output Total 750 / 750 250 / 1000 1700 / 1700 Balance -151.225 / -51.225 1742.107 / 1690.882 -1070.867 / -1070.867 Weight last 48 hrs Weight 95.708 kg Weight 97.522 kg Physical Exam Narrative: EXAM NARRATIVE: General exam is a white male, sleeping Neck is supple no lymphadenopathy or thyromegaly Cardiovascular irregular, irregular rhythm without murmur with controlled rate Lungs diminished breath sounds bilaterally. No wheezes or crackles Abdomen is distended. Hypoactive bowel sounds Extremities no cyanosis clubbing or edema, cap refill brisk Urinary Catheter Management^: Sheikh: Cath Placed During This Visit: no Reason for Continuing Indwelling Catheter: Accurate Measurement of Urinary Output in Critically Ill Patients Data : 10/11/20 04:28 10/11/20 04:28 Micro: Microbiology 10/10/20 08:16 Urine Culture - Preliminary Urine,Clean Catch Enterococcus species 10/10/20 14:43 Gram Stain - Final Abdomen A&P Assessment and plan (1) Free intraperitoneal air: Gastric perforation found on exploratory laparotomy. Postoperative day #1 status post repair of gastric perforation with Arthur's patch Appreciate surgical consultation Continue Zosyn IV. Vancomycin was added for concern of hypotension and sepsis Continue Protonix 40 mg IV every 12 hours Status: Acute (2) GI bleed: Protonix IV every 12 hours Hemoglobin stable Status: Acute (3) Anemia: Hemoglobin stable. Status: Acute (4) Hyponatremia: Likely secondary to acute illness. Improved Status: Acute (5) Hypokalemia: Supplement potassium Magnesium checked and normal Status: Acute (6) UTI (urinary tract infection): Urine culture Zosyn as above Status: Acute (7) Leukocytosis: Secondary to perforated viscus Blood culture was not performed on admission as I ordered. I have instructed to laboratory to get this today. Status: Acute Additional A&P Information Hypotension. On phenylephrine and norepinephrine this morning. These have been weaned nearly off. Atrial fibrillation. Currently on an amiodarone drip and rate is controlled COPD, oxygen dependent. No evidence of exacerbation currently. Also with history of pulmonary fibrosis. DuoNeb as needed History of Covid by positive test at the nursing facility on July 24. Chronic pain Coronary artery disease History of diabetes, not currently on any treatment Abdominal aortic aneurysm BPH Allow natural SCDs for DVT prophylaxis Holding Lovenox currently secondary to severe anemia, history of GI bleed 10/11 wean off pressors. Continue amiodarone. Continue antibiotics. Suspect we can start p.o. medications for atrial fibrillation tomorrow. Overall improved from last night. Attestations Medical Necessity Statement*: Needs continued hospitalization for close monitoring following repair of gastric perforation in this patient with peritonitis. Critical Care Time: 32 spent in critical care time at bedside in this patient with peritonitis, likely sepsis, perforated gastric ulcer, severe COPD, anemia and GI bleed that has high risk for and/or decompensation. Procedures Arterial Line Size (Gauge): 20 Coding Level of Care Code Acute Flight Operations Dispatch Clerk for [facility] Fwd Diagnoses Free intraperitoneal air K66.8 GI bleed K92.2 Anemia D64.9 Hyponatremia E87.1 Hypokalemia E87.6 UTI (urinary tract infection) N39.0 Leukocytosis D72.829
[2020-10-11] MEDS: morphine 4 mg/mL SDV 1 mL 2 MG IVP ×2 (14:33→21:08)
--- NOTE | 2020-10-11 14:49 | P.PN_ITS ---
Subjective Subjective: Interval history: Patient was a bit confused, pulled his NG tube out, denies any nausea vomiting, mainly complaining of abdominal pain. No flatus or BM. Vitals/I&O/Wt Last Vital Signs Temp 97.2 F L 10/11/20 07:50 Pulse 103 H 10/11/20 13:16 Resp 24 H 10/11/20 14:33 BP 142/78 10/11/20 12:03 Pulse Ox 90 10/11/20 14:33 10/10/20 10/11/20 10/11/20 22:59 06:59 14:59 Intake Total 598.775 / 2690.882 1992.107 / 2690.882 734.133 / 734.133 Output Total 750 / 1000 250 / 1000 1700 / 1700 Balance -151.225 / 9388.166 2456.107 / 1690.882 -965.867 / -965.867 Weight last 48 hrs Weight 211 lb Weight 215 lb Physical Exam Narrative: EXAM NARRATIVE: Abdomen: Soft, tender, slightly distended, dressings dry and intact, Sheikh to gravity Urinary Catheter Management^: Sheikh: Cath Placed During This Visit: no Reason for Continuing Indwelling Catheter: Accurate Measurement of Urinary Output in Critically Ill Patients Data : 10/11/20 04:28 10/11/20 04:28 Micro: Microbiology 10/10/20 14:28 Blood Culture - Preliminary Blood SPECIMEN COLLECTED 10/10/20 14:23 Blood Culture - Preliminary Blood SPECIMEN COLLECTED 10/10/20 08:16 Urine Culture - Preliminary Urine,Clean Catch Enterococcus species 10/10/20 14:43 Gram Stain - Final Abdomen A&P Assessment and plan (1) S/P exploratory laparotomy: Status post expiratory laparotomy for perforated gastric ulcer. Patient is hemodynamically stable, extubated. NG tube has been pulled out. Patient has a tortuous esophagus making placement of a new NG tube difficult. At this point keep patient n.p.o. Continue IV antibiotics Medical management as per hospitalist service IV Protonix twice daily SCD for DVT prophylaxis Patient will need greater than 2 nights of inpatient stay to ensure recovery from surgery Status: Acute Attestations Medical Necessity Statement*: Status post ex lap postop day 1 requiring continued ICU monitoring Procedures Arterial Line Size (Gauge): 20 Coding Level of Care Code Acute Accreditation Coordinator for [facility] Fwd Diagnoses S/P exploratory laparotomy Z98.890
[2020-10-11 19:27] LABS: Anion Gap 11.3 (5-19); Blood Urea Nitrogen 29 mg/dL (8-23); Calcium 7.7 mg/dL (8.5-10.5); Carbon Dioxide 29 mmol/L (22-29); Chloride 100 mmol/L (98-107); Glucose 133 mg/dL (65-115); Osmolality Calculated 292 mOsm/kg (285-295); Potassium 3.3 mmol/L (3.5-5.1); Sodium 137 mmol/L (136-145)
--- NOTE | 2020-10-11 21:25 | PC.NURSE ---
AO to person could not answer day or name of hospital, wants to pull out IVs but stops with reorientation, PRN Morphine and Ativan administered per order and request for pain and anxiety, supine 45 degrees call light within reach
[2020-10-12] VITALS (42 sets, daily range): BP systolic 66–145; BP diastolic 52–116; PULSE 92–153; RESP 16–39; TEMP 37–37.7; O2SAT 86–100
[2020-10-12] MEDS: piperacillin-tazobactam 3.375 GM in sodium chloride 0.9% (plus) 50 ML IV ×3 (00:42→17:48)
[2020-10-12 03:35] LABS: Basophils # 0.1 10^3/uL (0.0-0.1); Basophils % 0.4 %; Eosinophils # 0.5 10^3/uL (0.0-0.8); Eosinophils % 2.8 %; Hematocrit 22.8 % (42.0-52.0); Hemoglobin 6.8 g/dL (11.7-16.6); Lymphocytes # 1.9 10^3/uL (0.8-4.8); Lymphocytes % 11.8 %; Mean Corpuscular HGB Conc 29.8 g/dL (30.0-36.0); Mean Corpuscular Hemoglobin 28.6 pg (28.0-34.0); Mean Corpuscular Volume 95.8 fL (80-94); Mean Platelet Volume 9.5 fL (7.4-10.4); Monocytes # 1.5 10^3/uL (0.2-0.9); Monocytes % 9.2 %; Nucleated Red Blood Cells % 0 %; Platelet Count 292 10^3/cmm (130-400); Red Blood Count 2.38 10^6/uL (4.1-5.3); Red Cell Distribution Width 15.8 % (12.1-15.1); White Blood Count 16.3 10^3/uL (4.0-10.0)
[2020-10-12] MEDS: vancomycin 1,500 MG/300 ML PIGGYBACK 200 MG IV ×2 (03:52→23:13)
[2020-10-12] MEDS: morphine 4 mg/mL SDV 1 mL 2 MG IVP ×3 (03:53→16:34)
[2020-10-12 03:58] LABS: Magnesium 1.8 mg/dL (1.7-2.3)
[2020-10-12 03:59] LABS: Alanine Aminotransferase 7 U/L (0-41); Alkaline Phosphatase 96 IU/L (40-130); Anion Gap 9.4 (5-19); Aspartate Amino Transferase 14 U/L (0-40); Blood Urea Nitrogen 27 mg/dL (8-23); Calcium 7.7 mg/dL (8.5-10.5); Carbon Dioxide 30 mmol/L (22-29); Chloride 102 mmol/L (98-107); Globulin 4.1 g/dL (1.3-4.6); Glucose 113 mg/dL (65-115); Osmolality Calculated 292 mOsm/kg (285-295); Potassium 3.4 mmol/L (3.5-5.1); Sodium 138 mmol/L (136-145); Total Bilirubin 0.6 mg/dL (0.15-1.2); Total Protein 6.1 g/dL (6.6-8.7)
--- NOTE | 2020-10-12 06:57 | PC.NURSE ---
uneventful night, C/O of Nausea at times, Dr. Munson rounded this AM, reported to this nurse desire for patient t get out of bed more today, urine output KATHLEEN drainage and NG output reported, no N.O. at this time
[2020-10-12] MEDS: sodium chloride 0.9% 1,000 ML 75 ML IV (07:10)
--- NOTE | 2020-10-12 07:14 | PC.NURSE ---
pulled at lines multiple times throughout night but stopped with education of importance that IVs and ART lines remain in, uneventful, tolerated repositioning, supine 45 degrees at this time call light within reach
[2020-10-12] MEDS: LORazepam 2 mg/mL INJ 1 mL 0.5 MG IVP ×2 (07:18→13:39)
[2020-10-12] MEDS: ipratropium-albuterol 3 mL Neb INHALATION ×5 (07:50→23:22)
[2020-10-12] MEDS: sodium chloride 0.9% (100 ml) 100 ML 30 ML (08:31)
--- NOTE | 2020-10-12 09:13 | PC.CHAP ---
Pastoral Care Encounter/Spiritual Assessment Type of Contact [] Declined network security architect visit [] Patient/Family/Request visit [] Outpatient visit [] Follow-up visit [] Physician referral [] Code/Alert [] Routine visit [] Staff referral [] Actively dying [] Patient sleeping [] Family support [] [] Out of room [] Palliative care [] [] Receiving care in room [] Pre-surgical visit [] Trauma [] Long length of stay [x] ICU visit [] Other: Relational/Emotional Strength [] Patient feels connected with others/family/visitors/staff [] Distress [] Loneliness/isolation [] Abandonment Spirituality of Patient [] Person of Pallavi [] Attends Presybeterian of their Pallavi [] Believes in Prayer [] Reads Bible or Taoism materials [] There are Spiritual issues to be addressed Viscosity Inspector Interventions [x] Prayer [] Active listening [] Non-anxious presence [] Spiritual/emotional support [] Crisis/trauma care [] Spiritual counseling [] Bereavement support [] Provided bereavement packet [] Provided Bible/devotional materials [] Provided toy/stuffed animal, coloring book to patient or family member [] Provided Communion [] Anointing/[place] [] Salvation [x] Completed spiritual assessment [] Other: Impact on Illness or Injury [] Angry [] Fearful [] Anxious [] Often cries [] Exhaustion [] Unable to work [] Unable to attend spiritism [] Unable to walk/stand [] Unable to read [] Unable to drive [] Unable to eat/drink [] Unable to sleep [] Unable to be with family [] Patient intubated [] Other: Summary Time spent with patient
[2020-10-12] MEDS: amiodarone 200 mg Tablet PO ×2 (09:31→17:54)
[2020-10-12] MEDS: metoprolol tartrate 25 mg Tablet 12.5 MG PO ×2 (09:31→20:23)
[2020-10-12] MEDS: lidocaine 1% 5 ML in potassium chloride premix 100 ML 25 ML IV (10:51)
--- NOTE | 2020-10-12 12:26 | PC.NURSE ---
Patient has some audible lung congestion. Nurse has explained the importance of getting out of bed. Nurse suggested first sitting in a chair and possible wlking later today. Patient refuses at this time and he only wants to sleep. Patient has agreed to get up later today.
[2020-10-12] MEDS: FUROsemide 10 mg/mL SDV 4mL 40 MG IVP (12:27)
[2020-10-12] MEDS: sodium chloride 0.9% 1,000 ML 50 ML IV (12:29)
[2020-10-12] MEDS: pantoprazole 40 mg SDV IVP ×2 (13:27→23:13)
--- NOTE | 2020-10-12 14:42 | PC.RESP ---
Pulmonary Rehab information sent to patient.
[2020-10-12 14:49] LABS: Vancomycin Trough 26.8 ug/mL (10-15)
--- NOTE | 2020-10-12 14:56 | PC.NURSE ---
Nurse received a critical lab - Vanco trough of 26.8. Nurse alerted [facility]. HOlding 1500 vanc and waiting new dosing orders.
--- NOTE | 2020-10-12 15:33 | PM.PN ---
Subjective Subjective: Interval history: Yassine feels a little bit better this morning. Wanting ice chips. States his pain is under control. Medications: Reviewed: Yes Vitals/I&O/Wt Last Vital Signs Temp 99.5 F 10/12/20 12:00 Pulse 100 10/12/20 12:00 Resp 24 H 10/12/20 12:00 BP 138/58 10/12/20 12:00 Pulse Ox 99 10/12/20 12:00 10/12/20 10/12/20 10/12/20 06:59 14:59 22:59 Intake Total 1702.025 / 2894.491 1070 / 1070 Output Total 1050 / 2750 450 / 450 Balance 652.025 / 144.491 620 / 620 Weight last 48 hrs Weight 96.615 kg Weight 95.708 kg Physical Exam Narrative: EXAM NARRATIVE: General exam is a white male, no distress Neck is supple no lymphadenopathy or thyromegaly Cardiovascular irregular, irregular rhythm without murmur with controlled rate Lungs diminished breath sounds bilaterally. A few faint basilar crackles Abdomen is distended. Hypoactive bowel sounds Extremities no cyanosis clubbing or edema, cap refill brisk Urinary Catheter Management^: Sheikh: Cath Placed During This Visit: no Reason for Continuing Indwelling Catheter: Accurate Measurement of Urinary Output in Critically Ill Patients Data : 10/12/20 03:20 10/12/20 03:20 Micro: Microbiology 10/10/20 14:28 Blood Culture - Preliminary Blood NEGATIVE TO DATE 10/10/20 14:23 Blood Culture - Preliminary Blood NEGATIVE TO DATE 10/10/20 14:43 Gram Stain - Final Abdomen Tissue Culture - Preliminary Staphylococcus aureus 10/10/20 08:16 Urine Culture - Preliminary Urine,Clean Catch Enterococcus species A&P Assessment and plan (1) Free intraperitoneal air: Gastric perforation found on exploratory laparotomy. Postoperative day #2 status post repair of gastric perforation with Arthur's patch Appreciate surgical consultation Continue IV Zosyn and vancomycin secondary to peritonitis symptomatology Continue IV Protonix Culture of specimen from surgery growing staph aureus Status: Acute (2) GI bleed: Protonix IV every 12 hours Hemoglobin is drifted down. Transfuse 1 unit of packed red blood cells Status: Acute (3) Anemia: Transfuse blood. Recheck CBC tomorrow. No evidence of brisk bleeding Status: Acute (4) Hyponatremia: Likely secondary to acute illness. Resolved Status: Acute (5) Hypokalemia: Supplement again today Magnesium checked and normal Status: Acute (6) UTI (urinary tract infection): Urine culture Enterococcus species, sensitivities pending Zosyn as above Status: Acute (7) Leukocytosis: Secondary to perforated viscus Blood culture was not performed on admission as I ordered. It was done later but after antibiotics have been started. Status: Acute Additional A&P Information Hypotension. This is resolved Atrial fibrillation. Concern with rapid ventricular rate following surgery. Required amiodarone drip. Initiated amiodarone 200 mg twice daily October 12, as well as metoprolol. Heart rate under better control. Reduce fluids. 40 mg of Lasix IV after blood transfusion. Appears to be slightly fluid overloaded today. COPD, oxygen dependent. No evidence of exacerbation currently. Also with history of pulmonary fibrosis. DuoNeb as needed History of Covid by positive test at the nursing facility on July 24. Chronic pain Coronary artery disease History of diabetes, not currently on any treatment Abdominal aortic aneurysm BPH Allow natural SCDs for DVT prophylaxis Holding Lovenox currently secondary to severe anemia, history of GI bleed 10/11 wean off pressors. Continue amiodarone. Continue antibiotics. Suspect we can start p.o. medications for atrial fibrillation tomorrow. Overall improved from last night. 10/12 pressors have been weaned off. Convert amiodarone to p.o. Start oral metoprolol. Transfusion of 1 unit packed red blood cells for hemoglobin less than 7. Lasix 40 mg IV x1 to prevent fluid overload and fluids reduced to 50 cc an hour. Overall improving. Arterial line to be removed today. Attestations Medical Necessity Statement*: Needs continued hospitalization in the ICU secondary to peritonitis Critical Care Time: 31 minutes spent in critical care time in this patient who presented with perforated viscus, peritonitis, who following surgery developed hypotension atrial fibrillation with rapid ventricular rate requiring pressors. He is still at high risk for and or decompensation. Procedures Arterial Line Size (Gauge): 20 Coding Level of Care Code Acute Sausage Stuffer for Chg Fwd Diagnoses Free intraperitoneal air K66.8 GI bleed K92.2 Anemia D64.9 Hyponatremia E87.1 Hypokalemia E87.6 UTI (urinary tract infection) N39.0 Leukocytosis D72.829
--- NOTE | 2020-10-12 18:05 | PC.NURSE ---
Late note. Blood pressures have remained consistently in the 120-130s systolic. Per Dr Barba, nurse removed Arterial line form left wrist. Pressure held for 10 minutes. Minimal bleeding, no hematoma formation. Wrapped site with gauze and coban.
--- NOTE | 2020-10-12 18:07 | PC.NURSE ---
Nurse assisted patient up to chair. Patient remained in chair for about 2 hours and was regularly encouraged to cough/deep breath.
--- NOTE | 2020-10-12 18:29 | PM.PN ---
Subjective Subjective: Interval history: Patient has been stable overnight, did not require any pressors, hemoglobin is down to 6.8, no flatus or BM Vitals/I&O/Wt Last Vital Signs Temp 98.8 F 10/12/20 18:00 Pulse 105 H 10/12/20 18:00 Resp 24 H 10/12/20 18:00 BP 120/95 10/12/20 18:00 Pulse Ox 99 10/12/20 18:00 10/12/20 10/12/20 10/12/20 06:59 14:59 22:59 Intake Total 1702.025 / 2894.491 1120 / 1420 300 / 1420 Output Total 1050 / 2750 450 / 450 Balance 652.025 / 144.491 670 / 970 300 / 970 Weight last 48 hrs Weight 213 lb Weight 211 lb Physical Exam Narrative: EXAM NARRATIVE: Abdomen: Soft, distended, tender, incision clean dry and intact, KATHLEEN drain output is serosanguineous Urinary Catheter Management^: Sheikh: Cath Placed During This Visit: no Reason for Continuing Indwelling Catheter: Accurate Measurement of Urinary Output in Critically Ill Patients Data : 10/12/20 03:20 10/12/20 03:20 Micro: Microbiology 10/10/20 14:28 Blood Culture - Preliminary Blood NEGATIVE TO DATE 10/10/20 14:23 Blood Culture - Preliminary Blood NEGATIVE TO DATE 10/10/20 14:43 Gram Stain - Final Abdomen Tissue Culture - Preliminary Staphylococcus aureus 10/10/20 08:16 Urine Culture - Preliminary Urine,Clean Catch Enterococcus species A&P Assessment and plan (1) S/P exploratory laparotomy: Status post expiratory laparotomy for perforated gastric ulcer. Patient is hemodynamically stable, extubated. NG tube has been pulled out. Patient has a tortuous esophagus making placement of a new NG tube difficult. At this point keep patient n.p.o. Continue IV antibiotics Anemia: Transfuse 1 unit PRBC UTI: Enterococcus Medical management as per hospitalist service IV Protonix twice daily SCD for DVT prophylaxis Patient will need greater than 2 nights of inpatient stay to ensure recovery from surgery Status: Acute Attestations Medical Necessity Statement*: Status post ex lap for perforated gastric viscus doing well requiring continued ICU stay Procedures Arterial Line Size (Gauge): 20 Coding Level of Care Code Acute Manager Generation for Chg Fwd Diagnoses S/P exploratory laparotomy Z98.890
[2020-10-13] VITALS (31 sets, daily range): BP systolic 96–154; BP diastolic 61–99; PULSE 75–144; RESP 16–34; TEMP 37–37.5; O2SAT 88–97
[2020-10-13] MEDS: piperacillin-tazobactam 3.375 GM in sodium chloride 0.9% (plus) 50 ML IV ×3 (01:56→20:08)
[2020-10-13] MEDS: morphine 4 mg/mL SDV 1 mL 2 MG IVP ×5 (02:22→20:09)
[2020-10-13] MEDS: ipratropium-albuterol 3 mL Neb INHALATION ×5 (04:01→20:05)
[2020-10-13 04:55] LABS: Basophils # 0.1 10^3/uL (0.0-0.1); Basophils % 0.6 %; Eosinophils # 0.7 10^3/uL (0.0-0.8); Eosinophils % 6.8 %; Hematocrit 27.6 % (42.0-52.0); Hemoglobin 8.2 g/dL (11.7-16.6); Lymphocytes # 1.8 10^3/uL (0.8-4.8); Lymphocytes % 17.6 %; Mean Corpuscular HGB Conc 29.7 g/dL (30.0-36.0); Mean Corpuscular Hemoglobin 28.2 pg (28.0-34.0); Mean Corpuscular Volume 94.8 fL (80-94); Mean Platelet Volume 9.9 fL (7.4-10.4); Monocytes # 0.9 10^3/uL (0.2-0.9); Monocytes % 8.5 %; Neutrophils # 6.26 10^3/uL (1.8-7.7); Neutrophils % 62.5 %; Nucleated Red Blood Cells % 0 %; Platelet Count 212 10^3/cmm (130-400); Red Blood Count 2.91 10^6/uL (4.1-5.3)
[2020-10-13 05:26] LABS: Alanine Aminotransferase 8 U/L (0-41); Albumin Level 2.2 g/dL (3.5-5.2); Alkaline Phosphatase 96 IU/L (40-130); Aspartate Amino Transferase 17 U/L (0-40); Blood Urea Nitrogen 18 mg/dL (8-23); Calcium 8.2 mg/dL (8.5-10.5); Carbon Dioxide 26 mmol/L (22-29); Chloride 100 mmol/L (98-107); Globulin 3.9 g/dL (1.3-4.6); Glucose 80 mg/dL (65-115); Magnesium 1.8 mg/dL (1.7-2.3); Osmolality Calculated 283 mOsm/kg (285-295); Sodium 136 mmol/L (136-145); Total Bilirubin 0.8 mg/dL (0.15-1.2); Total Protein 6.1 g/dL (6.6-8.7)
[2020-10-13 05:56] LABS: Anion Gap 13.7 (5-19); Potassium 3.7 mmol/L (3.5-5.1)
[2020-10-13] MEDS: sodium chloride 0.9% SDV 10 mL 20 ML (09:27)
[2020-10-13] MEDS: amiodarone 200 mg Tablet PO (09:37)
[2020-10-13] MEDS: metoprolol tartrate 25 mg Tablet 12.5 MG PO (09:37)
--- NOTE | 2020-10-13 09:45 | PC.SOCIAL ---
IMM Page 2 of IMM explained to patient. Initialed, dated, and timed and placed in chart. Copy provided to patient.
--- NOTE | 2020-10-13 09:45 | PC.SOCIAL ---
IMM Page 2 of IMM explained to patient. Initialed, dated, and timed and placed in chart. Copy provided to patient.
--- NOTE | 2020-10-13 11:09 | P.PN_ITS ---
Subjective Subjective: Interval history: Patient has been stable overnight, denies any nausea or vomiting, keen to eat. Has some abdominal pain, passing flatus, no BM Vitals/I&O/Wt Last Vital Signs Temp 99 F 10/13/20 02:00 Pulse 95 10/13/20 11:07 Resp 20 H 10/13/20 11:05 BP 138/85 10/13/20 06:00 Pulse Ox 94 10/13/20 11:05 10/12/20 10/13/20 10/13/20 22:59 06:59 14:59 Intake Total 650 / 1770 1350 / 1350 Output Total 2500 / 3650 700 / 3650 Balance -1850 / -1880 -700 / -1880 1350 / 1350 Weight last 48 hrs Weight 198 lb Weight 213 lb Physical Exam Narrative: EXAM NARRATIVE: Abdomen: Soft, tender, nondistended, incision clean dry intact, KATHLEEN drain output is serosanguineous Urinary Catheter Management^: Sheikh: Cath Placed During This Visit: no Reason for Continuing Indwelling Catheter: Accurate Measurement of Urinary Output in Critically Ill Patients Data : 10/13/20 04:02 10/13/20 04:02 Micro: Microbiology 10/10/20 14:43 Gram Stain - Final Abdomen Tissue Culture - Final Staphylococcus aureus 10/10/20 14:28 Blood Culture - Preliminary Blood NEGATIVE TO DATE 10/10/20 14:23 Blood Culture - Preliminary Blood NEGATIVE TO DATE 10/10/20 08:16 Urine Culture - Preliminary Urine,Clean Catch Enterococcus species A&P Assessment and plan (1) S/P exploratory laparotomy: Status post expiratory laparotomy for perforated gastric ulcer. Intra-abdominal abscess: WBC down to 10, continue vancomycin and Zosyn Start clear liquid diet KATHLEEN to bulb suction Continue IV antibiotics Anemia: Hemoglobin at 8.2 after 1 unit PRBC UTI: Enterococcus Medical management as per hospitalist service IV Protonix twice daily SCD for DVT prophylaxis Patient will need greater than 2 nights of inpatient stay to ensure recovery from surgery Status: Acute Attestations Medical Necessity Statement*: Status post ex lap for gastric perforation requiring continued inpatient stay to ensure resolution of ileus Procedures Arterial Line Size (Gauge): 20 Coding Level of Care Code Acute Hazardous Materials Handler for Chg Fwd Diagnoses S/P exploratory laparotomy Z98.890
[2020-10-13] MEDS: pantoprazole 40 mg SDV IVP ×2 (13:43→22:16)
[2020-10-13] MEDS: sodium chloride 0.9% 1,000 ML 50 ML IV (13:50)
--- NOTE | 2020-10-13 14:12 | PC.NURSE ---
transfer to med surge. per bed
--- NOTE | 2020-10-13 14:37 | P.PN_ITS ---
Subjective Subjective: Interval history: The patient reports abdominal pain and chronic right shoulder weakness and pain due to arthritis. Denies nausea or vomiting. No chest pain, shortness of breath, cough, palpitations. Vitals/I&O/Wt Last Vital Signs Temp 99 F 10/13/20 02:00 Pulse 109 H 10/13/20 13:00 Resp 20 H 10/13/20 13:43 BP 136/74 10/13/20 13:00 Pulse Ox 97 10/13/20 13:00 10/12/20 10/13/20 10/13/20 22:59 06:59 14:59 Intake Total 650 / 1770 1520 / 1520 Output Total 2500 / 2950 700 / 3650 Balance -1850 / -1180 -700 / -1880 1520 / 1520 Weight last 48 hrs Weight 89.811 kg Weight 96.615 kg Physical Exam Narrative: EXAM NARRATIVE: Awake alert oriented. In no acute distress. Mood and affect are appropriate. Skin is warm and dry. Moist mucous membranes. Neck supple. No JVD Lungs clear bilaterally. No wheezes or crackles Heart S1, S2, irregular Abdomen soft, slightly distended, tender bilaterally, bowel sounds are present, no rebound, no guarding. Extremities. No cyanosis or calf tenderness bilaterally. Urinary Catheter Management^: Sheikh: Cath Placed During This Visit: no Reason for Continuing Indwelling Catheter: Accurate Measurement of Urinary Output in Critically Ill Patients Data : 10/13/20 04:02 10/13/20 04:02 Micro: Microbiology 10/10/20 14:43 Gram Stain - Final Abdomen Tissue Culture - Final Staphylococcus aureus 10/10/20 14:28 Blood Culture - Preliminary Blood NEGATIVE TO DATE 10/10/20 14:23 Blood Culture - Preliminary Blood NEGATIVE TO DATE 10/10/20 08:16 Urine Culture - Preliminary Urine,Clean Catch Enterococcus species A&P Additional A&P Information (1) Free intraperitoneal air: Gastric perforation found on exploratory laparotomy. Postoperative day #2 status post repair of gastric perforation with Arthur's patch Appreciate surgical consultation Continue IV Zosyn and vancomycin secondary to peritonitis symptomatology Continue IV Protonix Culture of specimen from surgery growing staph aureus Status: Acute (2) GI bleed: Protonix IV every 12 hours Hemoglobin is drifted down. Transfuse 1 unit of packed red blood cells Status: Acute (3) Anemia: Transfuse blood. Recheck CBC tomorrow. No evidence of brisk bleeding Status: Acute (4) Hyponatremia: Likely secondary to acute illness. Resolved Status: Acute (5) Hypokalemia: Supplement again today Magnesium checked and normal Status: Acute (6) UTI (urinary tract infection): Urine culture Enterococcus species, sensitivities pending Zosyn as above Status: Acute (7) Leukocytosis: Secondary to perforated viscus Blood culture was not performed on admission as I ordered. It was done later but after antibiotics have been started. Status: Acute Additional A&P Information Hypotension. This is resolved Atrial fibrillation. Concern with rapid ventricular rate following surgery. Required amiodarone drip. Initiated amiodarone 200 mg twice daily October 12, as well as metoprolol. Heart rate under better control. Reduce fluids. 40 mg of Lasix IV after blood transfusion. Appears to be slightly fluid overloaded today. COPD, oxygen dependent. No evidence of exacerbation currently. Also with history of pulmonary fibrosis. DuoNeb as needed History of Covid by positive test at the nursing facility on July 24. Chronic pain Coronary artery disease History of diabetes, not currently on any treatment Abdominal aortic aneurysm BPH Allow natural SCDs for DVT prophylaxis Holding Lovenox currently secondary to severe anemia, history of GI bleed 10/11 wean off pressors. Continue amiodarone. Continue antibiotics. Suspect we can start p.o. medications for atrial fibrillation tomorrow. Overall improved from last night. 10/12 pressors have been weaned off. Convert amiodarone to p.o. Start oral metoprolol. Transfusion of 1 unit packed red blood cells for hemoglobin less than 7. Lasix 40 mg IV x1 to prevent fluid overload and fluids reduced to 50 cc an hour. Overall improving. Arterial line to be removed today. 10/13 [place] More stable today. Off pressors. Amiodarone switched to p.o. Rate controlled. We will resume some of the home medications for rate control including diltiazem and metoprolol. We will decrease the dose of amiodarone. We will start [place] to minimize the use of IV opiates. Anemia stable. Continue antibiotics. Hypokalemia has resolved. Monitor. COPD and coronary artery disease seem to be stable. We will continue current management. Resuming home medications for BPH. Diet per surgery. Attestations Medical Necessity Statement*: Still requires aggressive management with IV medications and close monitoring. Procedures Arterial Line Size (Gauge): 20 Coding Level of Care Code Acute Natural Resources Manager for Chg Esperanza
[2020-10-13] MEDS: gabapentin 300 mg Capsule PO ×2 (15:05→20:10)
[2020-10-13] MEDS: dilTIAZem ER (12HR) 60 mg Capsule PO (15:05)
[2020-10-13] MEDS: HYDROcodone-acetaminophen 5-325 mg Tablet 1 TAB PO ×2 (16:27→23:34)
[2020-10-13] MEDS: vancomycin 1,500 MG/300 ML PIGGYBACK 200 MG IV (18:08)
[2020-10-13] MEDS: metoprolol succinate ER (24 HR) 25 mg Tablet 12.5 MG PO (18:09)
[2020-10-13] MEDS: finasteride 5 mg Tablet PO (20:10)
[2020-10-13] MEDS: tamsulosin 0.4 mg Capsule PO (20:10)
[2020-10-14] VITALS (20 sets, daily range): BP systolic 104–125; BP diastolic 56–75; PULSE 72–89; RESP 16–20; TEMP 36.6–37.2; O2SAT 94–99
[2020-10-14] MEDS: ipratropium-albuterol 3 mL Neb INHALATION ×7 (00:03→23:26)
[2020-10-14] MEDS: morphine 4 mg/mL SDV 1 mL 2 MG IVP ×3 (01:30→21:56)
[2020-10-14] MEDS: dilTIAZem ER (12HR) 60 mg Capsule PO ×2 (03:36→14:37)
[2020-10-14] MEDS: piperacillin-tazobactam 3.375 GM in sodium chloride 0.9% (plus) 50 ML IV ×3 (03:36→22:50)
[2020-10-14] MEDS: HYDROcodone-acetaminophen 5-325 mg Tablet 1 TAB PO ×3 (03:40→17:34)
[2020-10-14 05:57] LABS: Basophils # 0.1 10^3/uL (0.0-0.1); Basophils % 0.7 %; Eosinophils # 0.9 10^3/uL (0.0-0.8); Eosinophils % 12.4 %; Hematocrit 25.7 % (42.0-52.0); Hemoglobin 7.6 g/dL (11.7-16.6); Lymphocytes # 1.6 10^3/uL (0.8-4.8); Lymphocytes % 22.7 %; Mean Corpuscular HGB Conc 29.6 g/dL (30.0-36.0); Mean Corpuscular Hemoglobin 28.7 pg (28.0-34.0); Mean Platelet Volume 9.4 fL (7.4-10.4); Monocytes # 0.7 10^3/uL (0.2-0.9); Monocytes % 9.4 %; Neutrophils # 3.63 10^3/uL (1.8-7.7); Neutrophils % 50.2 %; Nucleated Red Blood Cells % 0 %; Platelet Count 206 10^3/cmm (130-400); Red Blood Count 2.65 10^6/uL (4.1-5.3); Red Cell Distribution Width 15.7 % (12.1-15.1); White Blood Count 7.2 10^3/uL (4.0-10.0)
[2020-10-14 06:16] LABS: Albumin Level 2.1 g/dL (3.5-5.2); Anion Gap 11.8 (5-19); Blood Urea Nitrogen 11 mg/dL (8-23); Calcium 7.7 mg/dL (8.5-10.5); Carbon Dioxide 26 mmol/L (22-29); Chloride 102 mmol/L (98-107); Glucose 67 mg/dL (65-115); Magnesium 1.6 mg/dL (1.7-2.3); Phosphorus 2.2 mg/dL (2.5-4.5); Sodium 137 mmol/L (136-145)
[2020-10-14 06:20] LABS: Potassium 2.8 mmol/L (3.5-5.1)
--- NOTE | 2020-10-14 06:24 | PC.NURSE ---
Patient was restless through the night receiving IV and PO pain medication. Patient requested to be repositioned multiples times through the night. KATHLEEN drain output 130ml. Vitals WNL.
[2020-10-14] MEDS: amiodarone 200 mg Tablet PO (08:03)
[2020-10-14] MEDS: sodium chloride 0.9% 1,000 ML 50 ML IV (08:03)
[2020-10-14] MEDS: metoprolol succinate ER (24 HR) 25 mg Tablet 12.5 MG PO (08:03)
[2020-10-14] MEDS: gabapentin 300 mg Capsule PO ×3 (08:03→21:56)
--- NOTE | 2020-10-14 11:00 | XRR_ITS ---
PROCEDURE INFORMATION: Exam: XR Right Shoulder Exam date and time: 10/14/2020 12:26 PM Age: 75 years old Clinical indication: Pain; Shoulder; Right; Additional info: Shoulder and arm pain TECHNIQUE: Imaging protocol: XR Right shoulder. Views: 2 or more views. COMPARISON: No relevant prior studies available. FINDINGS: Bones/joints: Oblique displaced fracture of the proximal shaft of the right humerus. The glenohumeral joint is intact. Soft tissues: Periosteal new bone formation is seen near the humeral shaft fracture consistent with interval healing XR/XR shoulder RT min 2V* [id number] IMPRESSION: Healing oblique displaced fracture proximal right humerus.
[2020-10-14] MEDS: magnesium sulfate premix 2 GM/50 ML PIGGYBACK IV (11:09)
[2020-10-14] MEDS: potassium chloride premix 100 ML 25 MEQ IV (11:48)
[2020-10-14] MEDS: pantoprazole 40 mg SDV IVP ×2 (12:23→23:40)
[2020-10-14] MEDS: vancomycin 1,500 MG/300 ML PIGGYBACK 200 MG IV (12:23)
--- NOTE | 2020-10-14 12:32 | P.PN_ITS ---
Subjective Subjective: Interval history: Patient doing well, passing flatus, hungry, no nausea or vomiting Vitals/I&O/Wt Last Vital Signs Temp 97.9 F 10/14/20 11:41 Pulse 73 10/14/20 11:50 Resp 18 10/14/20 11:45 BP 104/56 10/14/20 11:41 Pulse Ox 97 10/14/20 11:45 10/13/20 10/14/20 10/14/20 22:59 06:59 14:59 Intake Total 300 / 2350 50 / 2350 910.833 / 910.833 Output Total 790 / 1400 610 / 1400 25 / Balance -490 / 950 -560 / 950 885.833 / 885.833 Weight last 48 hrs Weight 210 lb 8 oz Weight 198 lb Physical Exam Narrative: EXAM NARRATIVE: Abdomen: Soft, minimally tender, nonrigid, incisions clean dry and intact, KATHLEEN drain output is serosanguineous Urinary Catheter Management^: Sheikh: Cath Placed During This Visit: no Reason for Continuing Indwelling Catheter: Acute Urinary Retention or Obstruction Data : 10/14/20 05:23 10/14/20 05:23 Micro: Microbiology 10/10/20 08:16 Urine Culture - Final Urine,Clean Catch Enterococcus faecalis 10/10/20 14:43 Gram Stain - Final Abdomen Tissue Culture - Final Staphylococcus aureus A&P Assessment and plan (1) S/P exploratory laparotomy: Status post expiratory laparotomy for perforated gastric ulcer. Intra-abdominal abscess: WBC down to 7.2, continue vancomycin and Zosyn Start clear liquid diet KATHLEEN to bulb suction Continue IV antibiotics Anemia: Hemoglobin at 7.6 after 1 unit PRBC UTI: Enterococcus Medical management as per hospitalist service IV Protonix twice daily SCD for DVT prophylaxis, hold Lovenox due to GI bleed Hypokalemia: Being corrected Fleets enema today, start lactulose 15 cc p.o. twice daily Patient will need greater than 2 nights of inpatient stay to ensure recovery from surgery Status: Acute Attestations Medical Necessity Statement*: Status post ex lap for gastric perforation requiring continued inpatient stay Procedures Arterial Line Size (Gauge): 20 Coding Level of Care Code Acute Senior Analyst Market Intelligence for Chg Fwd Diagnoses S/P exploratory laparotomy Z98.890
[2020-10-14] MEDS: lactulose oral liq 20 gm/30 mL UDC 10 GM PO (13:30)
[2020-10-14] MEDS: Fleet Enema 133 mL Enema PR (13:30)
--- NOTE | 2020-10-14 13:42 | PC.NURSE ---
dc marino pt tolerated it well and 5ml of ns removed from balloon.
--- NOTE | 2020-10-14 15:17 | PM.PN ---
Subjective Subjective: Interval history: Doing okay. No abdominal pain. No nausea or vomiting. No fevers or chills. Reports right shoulder pain which is chronic. Medications: Reviewed: Yes Medication Review Details: Generic Name Dose Route Start Last Admin Trade Name Freq PRN Reason Stop Dose Admin Hydrocodone Bitart /Acetaminophen 1 tab 10/13/20 13:34 10/14/20 08:02 Hydrocodone-Acet aminophen 5-325 Mg Tablet PO 1 tab Q4H PRN Administration MODERATE PAIN Albuterol/Ipratrop ium 3 ml 10/12/20 12:00 10/14/20 11:45 Ipratropium-Albu terol 3 Ml Neb INHALATION 3 ml Q4H.RESPIRATORY S CH Administration Diltiazem HCl 60 mg 10/13/20 14:52 10/14/20 14:37 Diltiazem Er (12 hr) 60 Mg Capsule PO 60 mg Q12H VINCE Administration Finasteride 5 mg 10/13/20 21:00 10/13/20 20:10 Finasteride 5 Mg Tablet PO 5 mg BEDTIME VINCE Administration Gabapentin 300 mg 10/13/20 15:00 10/14/20 14:37 Gabapentin 300 M g Capsule PO 300 mg TID VINCE Administration Piperacillin Sod/T azobactam 50 mls @ 12.5 mls /hr 10/10/20 17:00 10/14/20 14:40 Sod 3.375 gm/ So dium Chloride IV 12.5 mls/hr Q8H VINCE Administration Protocol Sodium Chloride 1,000 mls @ 50 ml s/hr 10/12/20 12:00 10/14/20 08:03 Sodium Chloride 0.9% IV 50 mls/hr .Q20H VINCE Administration Vancomycin/PEG/NAD A/Lysine/Water 1,500 mg in 300 m ls @ 200 mls/hr 10/12/20 23:00 10/14/20 12:23 Vancocin IV 200 mls/hr Q18H VINCE Administration Lactulose 10 gm 10/14/20 12:45 10/14/20 13:30 Lactulose Oral L iq 20 Gm/30 Ml Udc PO 10 gm Q12H VINCE Administration Lorazepam 0.5 mg 10/10/20 16:15 10/12/20 13:39 Lorazepam 2 Mg/M l Inj 1 Ml IVP 0.5 mg Q6H PRN Administration ANXIETY Morphine Sulfate 2 mg 10/10/20 16:15 10/14/20 14:37 Morphine 4 Mg/Ml Sdv 1 Ml IVP 2 mg Q4H PRN Administration PAIN Ondansetron HCl 4 mg 10/10/20 16:15 10/11/20 14:13 Ondansetron 2 Mg /Ml Sdv 2 Ml IVP 4 mg Q6H PRN Administration NAUSEA AND VOMITI NG Pantoprazole Sodiu m 40 mg 10/10/20 23:00 10/14/20 12:23 Pantoprazole 40 Mg Sdv IVP 40 mg Q12H VINCE Administration Fluticasone/Salmet sterling 1 puff 10/13/20 20:00 10/14/20 08:24 Fluticasone-Salm eterol 250-50 Disk us INHALATION 1 puff BID.RESPIRATORY S CH Administration Tamsulosin HCl 0.4 mg 10/13/20 21:00 10/13/20 20:10 Tamsulosin 0.4 M g Capsule PO 0.4 mg BEDTIME VINCE Administration Vitals/I&O/Wt Last Vital Signs Temp 97.9 F 10/14/20 11:41 Pulse 73 10/14/20 11:50 Resp 18 10/14/20 14:37 BP 104/56 10/14/20 11:41 Pulse Ox 97 10/14/20 11:45 10/14/20 10/14/20 10/14/20 06:59 14:59 22:59 Intake Total 50 / 2350 1200.833 / 1200.833 Output Total 610 / 1400 Balance -560 / 950 1175.833 / 1175.833 Weight last 48 hrs Weight 95.481 kg Weight 89.811 kg Physical Exam Narrative: EXAM NARRATIVE: Awake alert oriented. In no acute distress. Mood and affect are appropriate. Skin is warm and dry. Moist mucous membranes. Neck supple. No JVD Lungs clear bilaterally. No wheezes or crackles Heart S1, S2, irregular Abdomen soft, slightly distended, tender bilaterally, bowel sounds are present, no rebound, no guarding. Extremities. No cyanosis or calf tenderness bilaterally. Urinary Catheter Management^: Sheikh: Cath Placed During This Visit: yes, but has since been removed by the nurse Reason for Continuing Indwelling Catheter: Decision to DC Catheter Date Urinary Catheter Removed: 10/14/20 Time Urinary Catheter Discontinued: 13:42 Data : 10/14/20 05:23 10/14/20 05:23 Micro: Microbiology 10/10/20 08:16 Urine Culture - Final Urine,Clean Catch Enterococcus faecalis 10/10/20 14:43 Gram Stain - Final Abdomen Tissue Culture - Final Staphylococcus aureus A&P Assessment and plan (1) Free intraperitoneal air: Gastric perforation found on exploratory laparotomy. Postoperative day #2 status post repair of gastric perforation with Arthur's patch Appreciate surgical consultation Continue IV Zosyn and vancomycin secondary to peritonitis symptomatology Continue IV Protonix Culture of specimen from surgery growing staph aureus Status: Acute (2) GI bleed: Protonix IV every 12 hours Hemoglobin is drifted down. Transfuse 1 unit of packed red blood cells Status: Acute (3) Anemia: Transfuse blood. Recheck CBC tomorrow. No evidence of brisk bleeding Status: Acute (4) Hyponatremia: Likely secondary to acute illness. Resolved Status: Acute (5) Hypokalemia: Supplement again today Magnesium checked and normal Status: Acute (6) UTI (urinary tract infection): Urine culture Enterococcus species, sensitivities pending Zosyn as above Status: Acute (7) Leukocytosis: Secondary to perforated viscus Blood culture was not performed on admission as I ordered. It was done later but after antibiotics have been started. Status: Acute Additional A&P Information (1) Free intraperitoneal air: Gastric perforation found on exploratory laparotomy. Postoperative day #2 status post repair of gastric perforation with Arthur's patch Appreciate surgical consultation Continue IV Zosyn and vancomycin secondary to peritonitis symptomatology Continue IV Protonix Culture of specimen from surgery growing staph aureus Status: Acute (2) GI bleed: Protonix IV every 12 hours Hemoglobin is drifted down. Transfuse 1 unit of packed red blood cells Status: Acute (3) Anemia: Transfuse blood. Recheck CBC tomorrow. No evidence of brisk bleeding Status: Acute (4) Hyponatremia: Likely secondary to acute illness. Resolved Status: Acute (5) Hypokalemia: Supplement again today Magnesium checked and normal Status: Acute (6) UTI (urinary tract infection): Urine culture Enterococcus species, sensitivities pending Zosyn as above Status: Acute (7) Leukocytosis: Secondary to perforated viscus Blood culture was not performed on admission as I ordered. It was done later but after antibiotics have been started. Status: Acute Additional A&P Information Hypotension. This is resolved Atrial fibrillation. Concern with rapid ventricular rate following surgery. Required amiodarone drip. Initiated amiodarone 200 mg twice daily October 12, as well as metoprolol. Heart rate under better control. Reduce fluids. 40 mg of Lasix IV after blood transfusion. Appears to be slightly fluid overloaded today. COPD, oxygen dependent. No evidence of exacerbation currently. Also with history of pulmonary fibrosis. DuoNeb as needed History of Covid by positive test at the nursing facility on July 24. Chronic pain Coronary artery disease History of diabetes, not currently on any treatment Abdominal aortic aneurysm BPH Allow natural SCDs for DVT prophylaxis Holding Lovenox currently secondary to severe anemia, history of GI bleed 10/11 wean off pressors. Continue amiodarone. Continue antibiotics. Suspect we can start p.o. medications for atrial fibrillation tomorrow. Overall improved from last night. 10/12 pressors have been weaned off. Convert amiodarone to p.o. Start oral metoprolol. Transfusion of 1 unit packed red blood cells for hemoglobin less than 7. Lasix 40 mg IV x1 to prevent fluid overload and fluids reduced to 50 cc an hour. Overall improving. Arterial line to be removed today. 10/14 [place] More stable today. Stable. We will continue adjusting rate control medications for A. fib. We will try to minimize amiodarone due to history of lung disease. Anemia stable. Continue antibiotics. Replace hypokalemia and monitor. COPD and coronary artery disease seem to be stable. Shoulder x-ray to evaluate for fractures. However most likely this is chronic degenerative changes requiring outpatient follow-up and management. Diet per surgery. Attestations Medical Necessity Statement*: The plan of care requires inpatient hospitalization. Procedures Arterial Line Size (Gauge): 20 Coding Level of Care Code Acute Hvac Project Engineer for [facility]g Fwd Diagnoses Free intraperitoneal air K66.8 GI bleed K92.2 Anemia D64.9 Hyponatremia E87.1 Hypokalemia E87.6 UTI (urinary tract infection) N39.0 Leukocytosis D72.829
[2020-10-14] MEDS: metoprolol succinate ER (24 HR) 25 mg Tablet PO (17:34)
[2020-10-14] MEDS: tamsulosin 0.4 mg Capsule PO (21:56)
[2020-10-14] MEDS: finasteride 5 mg Tablet PO (21:56)
[2020-10-15] VITALS (17 sets, daily range): BP systolic 106–146; BP diastolic 65–95; PULSE 72–96; RESP 16–18; TEMP 36.7–36.9; O2SAT 94–98
[2020-10-15] MEDS: HYDROcodone-acetaminophen 5-325 mg Tablet 1 TAB PO ×5 (00:09→20:19)
[2020-10-15] MEDS: zolpidem 5 mg Tablet PO (00:20)
[2020-10-15] MEDS: lactulose oral liq 20 gm/30 mL UDC 10 GM PO ×2 (00:22→13:25)
[2020-10-15] MEDS: dilTIAZem ER (12HR) 60 mg Capsule PO ×2 (03:35→14:51)
[2020-10-15] MEDS: sodium chloride 0.9% 1,000 ML 50 ML IV ×2 (03:42→23:40)
[2020-10-15 04:30] LABS: Basophils % 0.4 %; Eosinophils # 1.1 10^3/uL (0.0-0.8); Eosinophils % 11.8 %; Hematocrit 28.9 % (42.0-52.0); Hemoglobin 8.9 g/dL (11.7-16.6); Lymphocytes # 1.9 10^3/uL (0.8-4.8); Lymphocytes % 20.8 %; Mean Corpuscular HGB Conc 30.8 g/dL (30.0-36.0); Mean Corpuscular Hemoglobin 28.8 pg (28.0-34.0); Mean Corpuscular Volume 93.5 fL (80-94); Mean Platelet Volume 9.2 fL (7.4-10.4); Monocytes # 0.8 10^3/uL (0.2-0.9); Monocytes % 8.8 %; Neutrophils % 54.3 %; Nucleated Red Blood Cells % 0 %; Platelet Count 251 10^3/cmm (130-400); Red Blood Count 3.09 10^6/uL (4.1-5.3); Red Cell Distribution Width 15.7 % (12.1-15.1)
[2020-10-15 04:52] LABS: Alanine Aminotransferase 8 U/L (0-41); Albumin Level 2.3 g/dL (3.5-5.2); Alkaline Phosphatase 88 IU/L (40-130); Anion Gap 12.5 (5-19); Aspartate Amino Transferase 14 U/L (0-40); Blood Urea Nitrogen 9 mg/dL (8-23); Calcium 7.8 mg/dL (8.5-10.5); Carbon Dioxide 25 mmol/L (22-29); Chloride 102 mmol/L (98-107); Globulin 3.4 g/dL (1.3-4.6); Glucose 76 mg/dL (65-115); Magnesium 1.9 mg/dL (1.7-2.3); Osmolality Calculated 279 mOsm/kg (285-295); Phosphorus 2.8 mg/dL (2.5-4.5); Potassium 3.5 mmol/L (3.5-5.1); Sodium 136 mmol/L (136-145); Total Bilirubin 0.6 mg/dL (0.15-1.2); Total Protein 5.7 g/dL (6.6-8.7)
[2020-10-15 05:16] LABS: Vancomycin Trough 26.6 ug/mL (10-15)
[2020-10-15] MEDS: piperacillin-tazobactam 3.375 GM in sodium chloride 0.9% (plus) 50 ML IV ×3 (07:03→23:40)
[2020-10-15] MEDS: morphine 4 mg/mL SDV 1 mL 2 MG IVP ×2 (07:50→16:18)
[2020-10-15] MEDS: ondansetron 2 mg/ML SDV 2 mL 4 MG IVP (07:58)
[2020-10-15] MEDS: ipratropium-albuterol 3 mL Neb INHALATION ×2 (08:05→20:19)
[2020-10-15] MEDS: gabapentin 300 mg Capsule PO ×3 (08:37→20:19)
[2020-10-15] MEDS: metoprolol succinate ER (24 HR) 25 mg Tablet PO ×2 (08:37→18:30)
--- NOTE | 2020-10-15 09:19 | PC.SOCIAL ---
IMM Update Pg. 2 of IMM updated and reviewed with patient, who verbalized understanding. Copy provided.
--- NOTE | 2020-10-15 16:27 | PC.NURSE ---
Removed Sheikh Catheter at this time. Patient tolerated well. 300 mls in bag.
--- NOTE | 2020-10-15 16:37 | PM.PN ---
Subjective Subjective: Interval history: Patient doing well, pain is controlled, no nausea or vomiting, had a BM yesterday Vitals/I&O/Wt Last Vital Signs Temp 98.5 F 10/15/20 16:00 Pulse 82 10/15/20 16:00 Resp 16 10/15/20 16:18 BP 137/72 10/15/20 16:00 Pulse Ox 95 10/15/20 16:18 10/15/20 10/15/20 10/15/20 06:59 14:59 22:59 Intake Total 1032.5 / 2763.333 270 / 270 Output Total 970 / 1515 910 / 1260 350 / 1260 Balance 62.5 / 1248.333 -640 / -990 -350 / -990 Weight last 48 hrs Weight 207 lb 3.2 oz Weight 210 lb 8 oz Physical Exam Narrative: EXAM NARRATIVE: Abdomen: Soft, mildly distended, tender, incision clean dry and intact, KATHLEEN drain output is serosanguineous Urinary Catheter Management^: Sheikh: Cath Placed During This Visit: yes, but has since been removed by the nurse Reason for Continuing Indwelling Catheter: Decision to DC Catheter Urinary Catheter Date of Insertion: 10/14/20 Urinary Catheter Time of Insertion: 21:45 Date Urinary Catheter Removed: 10/15/20 Time Urinary Catheter Discontinued: 16:30 Data : 10/15/20 04:18 10/15/20 04:18 A&P Assessment and plan (1) S/P exploratory laparotomy: Status post expiratory laparotomy for perforated gastric ulcer. Intra-abdominal abscess: continue vancomycin and Zosyn clear liquid diet KATHLEEN to bulb suction Continue IV antibiotics Anemia: Hemoglobin at 8.9 UTI: Enterococcus Medical management as per hospitalist service IV Protonix twice daily SCD for DVT prophylaxis, hold Lovenox due to GI bleed Hypokalemia: resolved lactulose 15 cc p.o. twice daily Patient will need greater than 2 nights of inpatient stay to ensure recovery from surgery Status: Acute Attestations Medical Necessity Statement*: s/p ex lap with post op ileus requiring continued inpatient stay Procedures Arterial Line Size (Gauge): 20 Coding Level of Care Code Acute Rotary Driller Prospecting for [facility] Fwd Diagnoses S/P exploratory laparotomy Z98.890
--- NOTE | 2020-10-15 18:00 | PM.PN ---
Subjective Subjective: Interval history: Patient reports feeling better. No nausea or vomiting. No uncontrolled abdominal pain. Pain in the shoulder is well controlled. No fevers or chills. No chest pain, shortness of breath, cough, palpitations. Medications: Reviewed: Yes Medication Review Details: Generic Name Dose Route Start Last Admin Trade Name Freq PRN Reason Stop Dose Admin Hydrocodone Bitart /Acetaminophen 1 tab 10/13/20 13:34 10/15/20 14:51 Hydrocodone-Acet aminophen 5-325 Mg Tablet PO 1 tab Q4H PRN Administration MODERATE PAIN Albuterol/Ipratrop ium 3 ml 10/12/20 12:00 10/15/20 16:10 Ipratropium-Albu terol 3 Ml Neb INHALATION Not Given Q4H.RESPIRATORY S CH Diltiazem HCl 60 mg 10/13/20 14:52 10/15/20 14:51 Diltiazem Er (12 hr) 60 Mg Capsule PO 60 mg Q12H VINCE Administration Finasteride 5 mg 10/13/20 21:00 10/14/20 21:56 Finasteride 5 Mg Tablet PO 5 mg BEDTIME VINCE Administration Gabapentin 300 mg 10/13/20 15:00 10/15/20 14:51 Gabapentin 300 M g Capsule PO 300 mg TID VINCE Administration Piperacillin Sod/T azobactam 50 mls @ 12.5 mls /hr 10/10/20 17:00 10/15/20 15:01 Sod 3.375 gm/ So dium Chloride IV 12.5 mls/hr Q8H VINCE Administration Protocol Sodium Chloride 1,000 mls @ 50 ml s/hr 10/12/20 12:00 10/15/20 03:42 Sodium Chloride 0.9% IV 50 mls/hr .Q20H VINCE Administration Lactulose 10 gm 10/14/20 12:45 10/15/20 13:25 Lactulose Oral L iq 20 Gm/30 Ml Udc PO 10 gm Q12H VINCE Administration Metoprolol Succina te 25 mg 10/14/20 18:00 10/15/20 08:37 Metoprolol Succi vitaliy Er (24 Hr) 25 Mg Tablet PO 25 mg BID IVNCE Administration Morphine Sulfate 2 mg 10/10/20 16:15 10/15/20 16:18 Morphine 4 Mg/Ml Sdv 1 Ml IVP 2 mg Q4H PRN Administration PAIN Ondansetron HCl 4 mg 10/10/20 16:15 10/15/20 07:58 Ondansetron 2 Mg /Ml Sdv 2 Ml IVP 4 mg Q6H PRN Administration NAUSEA AND VOMITI NG Fluticasone/Salmet sterling 1 puff 10/13/20 20:00 10/15/20 08:05 Fluticasone-Salm eterol 250-50 Disk us INHALATION 1 puff BID.RESPIRATORY S CH Administration Tamsulosin HCl 0.4 mg 10/13/20 21:00 10/14/20 21:56 Tamsulosin 0.4 M g Capsule PO 0.4 mg BEDTIME VINCE Administration Vitals/I&O/Wt Last Vital Signs Temp 98.5 F 10/15/20 16:00 Pulse 82 10/15/20 16:00 Resp 16 10/15/20 16:18 BP 137/72 10/15/20 16:00 Pulse Ox 95 10/15/20 16:18 10/15/20 10/15/20 10/15/20 06:59 14:59 22:59 Intake Total 1032.5 / 2763.333 270 / 270 Output Total 970 / 1515 910 / 910 350 / 1260 Balance 62.5 / 1248.333 -640 / -640 -350 / -990 Weight last 48 hrs Weight 93.984 kg Weight 95.481 kg Physical Exam Narrative: EXAM NARRATIVE: Awake alert oriented. In no acute distress. Mood and affect are appropriate. Skin is warm and dry. Moist mucous membranes. Neck supple. No JVD Lungs clear bilaterally. No wheezes or crackles Heart S1, S2, irregular Abdomen soft, slightly distended, tender bilaterally, bowel sounds are present, no rebound, no guarding. Extremities. No cyanosis or calf tenderness bilaterally. Urinary Catheter Management^: Sheikh: Cath Placed During This Visit: yes, but has since been removed by the nurse Reason for Continuing Indwelling Catheter: Decision to DC Catheter Urinary Catheter Date of Insertion: 10/14/20 Urinary Catheter Time of Insertion: 21:45 Date Urinary Catheter Removed: 10/15/20 Time Urinary Catheter Discontinued: 16:30 Data : 10/15/20 04:18 10/15/20 04:18 A&P Assessment and plan (1) Free intraperitoneal air: Gastric perforation found on exploratory laparotomy. Postoperative day #2 status post repair of gastric perforation with Arthur's patch Appreciate surgical consultation Continue IV Zosyn and vancomycin secondary to peritonitis symptomatology Continue IV Protonix Culture of specimen from surgery growing staph aureus Status: Acute (2) GI bleed: Protonix IV every 12 hours Hemoglobin is drifted down. Transfuse 1 unit of packed red blood cells Status: Acute (3) Anemia: Transfuse blood. Recheck CBC tomorrow. No evidence of brisk bleeding Status: Acute (4) Hyponatremia: Likely secondary to acute illness. Resolved Status: Acute (5) Hypokalemia: Supplement again today Magnesium checked and normal Status: Acute (6) UTI (urinary tract infection): Urine culture Enterococcus species, sensitivities pending Zosyn as above Status: Acute (7) Leukocytosis: Secondary to perforated viscus Blood culture was not performed on admission as I ordered. It was done later but after antibiotics have been started. Status: Acute Additional A&P Information (1) Free intraperitoneal air: Gastric perforation found on exploratory laparotomy. Postoperative day #2 status post repair of gastric perforation with Arthur's patch Appreciate surgical consultation Continue IV Zosyn and vancomycin secondary to peritonitis symptomatology Continue IV Protonix Culture of specimen from surgery growing staph aureus Status: Acute (2) GI bleed: Protonix IV every 12 hours Hemoglobin is drifted down. Transfuse 1 unit of packed red blood cells Status: Acute (3) Anemia: Transfuse blood. Recheck CBC tomorrow. No evidence of brisk bleeding Status: Acute (4) Hyponatremia: Likely secondary to acute illness. Resolved Status: Acute (5) Hypokalemia: Supplement again today Magnesium checked and normal Status: Acute (6) UTI (urinary tract infection): Urine culture Enterococcus species, sensitivities pending Zosyn as above Status: Acute (7) Leukocytosis: Secondary to perforated viscus Blood culture was not performed on admission as I ordered. It was done later but after antibiotics have been started. Status: Acute Additional A&P Information Hypotension. This is resolved Atrial fibrillation. Concern with rapid ventricular rate following surgery. Required amiodarone drip. Initiated amiodarone 200 mg twice daily October 12, as well as metoprolol. Heart rate under better control. Reduce fluids. 40 mg of Lasix IV after blood transfusion. Appears to be slightly fluid overloaded today. COPD, oxygen dependent. No evidence of exacerbation currently. Also with history of pulmonary fibrosis. DuoNeb as needed History of Covid by positive test at the nursing facility on July 24. Chronic pain Coronary artery disease History of diabetes, not currently on any treatment Abdominal aortic aneurysm BPH Allow natural SCDs for DVT prophylaxis Holding Lovenox currently secondary to severe anemia, history of GI bleed 10/11 wean off pressors. Continue amiodarone. Continue antibiotics. Suspect we can start p.o. medications for atrial fibrillation tomorrow. Overall improved from last night. 10/12 pressors have been weaned off. Convert amiodarone to p.o. Start oral metoprolol. Transfusion of 1 unit packed red blood cells for hemoglobin less than 7. Lasix 40 mg IV x1 to prevent fluid overload and fluids reduced to 50 cc an hour. Overall improving. Arterial line to be removed today. 10/15 [place] Peritonitis secondary to perforated peptic ulcer disease. Status post oratory laparotomy. Improving. Continue diet per surgery. Continue pain management, PPI, and Zosyn. Cultures positive for MSSA. UTI. Enterococcus sensitive to ampicillin. Covered with Zosyn. A. fib. With RVR. Continue current management with rate control medications. Anemia stable. Monitor. Shoulder pain probably secondary to recent fracture. Currently healing based on chest x-ray report. Continue PT OT and pain management. Hypokalemia. Replace and monitor. COPD and coronary artery disease. Currently stable. Continue current management. DVT prophylaxis. Teds and SCDs. No anticoagulation due to bleeding. Attestations Medical Necessity Statement*: Postop ileus. Requires inpatient stay for IV fluids and antibiotics. Procedures Arterial Line Size (Gauge): 20 Coding Level of Care Code Acute Tactical Response Group Officer for [facility] Fwd Diagnoses Free intraperitoneal air K66.8 GI bleed K92.2 Anemia D64.9 Hyponatremia E87.1 Hypokalemia E87.6 UTI (urinary tract infection) N39.0 Leukocytosis D72.829
[2020-10-15] MEDS: pantoprazole DR 40 mg Tablet PO (18:30)
--- NOTE | 2020-10-15 19:28 | PC.NURSE ---
Report to Stacy HARRIS at this time.
[2020-10-15] MEDS: finasteride 5 mg Tablet PO (20:19)
[2020-10-15] MEDS: tamsulosin 0.4 mg Capsule PO (20:20)
[2020-10-16] VITALS (19 sets, daily range): BP systolic 103–139; BP diastolic 64–74; PULSE 60–91; RESP 16–18; TEMP 36.4–37.1; O2SAT 94–99
[2020-10-16] MEDS: HYDROcodone-acetaminophen 5-325 mg Tablet 1 TAB PO ×5 (01:39→21:48)
[2020-10-16] MEDS: dilTIAZem ER (12HR) 60 mg Capsule PO ×2 (03:26→17:44)
[2020-10-16] MEDS: morphine 4 mg/mL SDV 1 mL 2 MG IVP (04:37)
[2020-10-16] MEDS: piperacillin-tazobactam 3.375 GM in sodium chloride 0.9% (plus) 50 ML IV ×2 (06:25→18:20)
[2020-10-16 07:18] LABS: Alanine Aminotransferase 7 U/L (0-41); Alkaline Phosphatase 82 IU/L (40-130); Aspartate Amino Transferase 14 U/L (0-40); Blood Urea Nitrogen 6 mg/dL (8-23); Calcium 7.8 mg/dL (8.5-10.5); Carbon Dioxide 25 mmol/L (22-29); Chloride 104 mmol/L (98-107); Globulin 3.3 g/dL (1.3-4.6); Glucose 64 mg/dL (65-115); Osmolality Calculated 278 mOsm/kg (285-295); Sodium 136 mmol/L (136-145); Total Bilirubin 0.5 mg/dL (0.15-1.2); Total Protein 5.3 g/dL (6.6-8.7)
[2020-10-16 07:24] LABS: Anion Gap 10.1 (5-19); Potassium 3.1 mmol/L (3.5-5.1)
[2020-10-16] MEDS: pantoprazole DR 40 mg Tablet PO ×2 (09:11→17:44)
[2020-10-16] MEDS: metoprolol succinate ER (24 HR) 25 mg Tablet PO ×2 (09:11→17:44)
[2020-10-16] MEDS: gabapentin 300 mg Capsule PO ×3 (09:12→20:50)
[2020-10-16] MEDS: ipratropium-albuterol 3 mL Neb INHALATION ×4 (11:11→23:42)
--- NOTE | 2020-10-16 14:23 | P.PN_ITS ---
Subjective Subjective: Interval history: Patient has been doing well, had multiple bowel movements, tolerating clear liquid diet Vitals/I&O/Wt Last Vital Signs Temp 98.1 F 10/16/20 11:22 Pulse 62 10/16/20 11:22 Resp 18 10/16/20 11:22 BP 111/65 10/16/20 11:22 Pulse Ox 96 10/16/20 11:22 10/15/20 10/16/20 10/16/20 22:59 06:59 14:59 Intake Total 290 / 2088.333 1528.333 / 2088.333 410 / 410 Output Total 690 / 3240 1640 / 3240 600 / 600 Balance -400 / -1151.667 -111.667 / -1151.667 -190 / -190 Weight last 48 hrs Weight 207 lb Weight 207 lb 3.2 oz Physical Exam Narrative: EXAM NARRATIVE: Abdomen: Soft, nondistended, minimally tender, KATHLEEN drain is serosanguineous, incision clean dry and intact Urinary Catheter Management^: Sheikh: Cath Placed During This Visit: yes, but has since been removed by the nurse Reason for Continuing Indwelling Catheter: Decision to DC Catheter Urinary Catheter Date of Insertion: 10/14/20 Urinary Catheter Time of Insertion: 21:45 Date Urinary Catheter Removed: 10/15/20 Time Urinary Catheter Discontinued: 16:30 Data : 10/15/20 04:18 10/16/20 06:44 A&P Assessment and plan (1) S/P exploratory laparotomy: Status post expiratory laparotomy for perforated gastric ulcer. Intra-abdominal abscess: continue vancomycin and Zosyn Advance to GI soft diet with Ensure 1 can 3 times a day KATHLEEN to bulb suction Anemia: Hemoglobin at 8.9 UTI: Enterococcus Medical management as per hospitalist service IV Protonix twice daily SCD for DVT prophylaxis, hold Lovenox due to GI bleed lactulose 15 cc p.o. twice daily Hopefully patient can go back to [facility] tomorrow Status: Acute Attestations Medical Necessity Statement*: Status post ex lap for gastric perforation doing well, DC to [facility] tomorrow Procedures Arterial Line Size (Gauge): 20 Coding Level of Care Code Acute Store Clerk Checker for [facility] Fwd Diagnoses S/P exploratory laparotomy Z98.890
--- NOTE | 2020-10-16 15:25 | P.PN_ITS ---
Subjective Subjective: Interval history: Doing okay. The pain is well controlled. Denies nausea or vomiting. No chest pain, shortness of breath, cough, palpitations. Medications: Reviewed: Yes Medication Review Details: Generic Name Dose Route Start Last Admin Trade Name Freq PRN Reason Stop Dose Admin Hydrocodone Bitart /Acetaminophen 1 tab 10/13/20 13:34 10/16/20 13:52 Hydrocodone-Acet aminophen 5-325 Mg Tablet PO 1 tab Q4H PRN Administration MODERATE PAIN Albuterol/Ipratrop ium 3 ml 10/12/20 12:00 10/16/20 15:17 Ipratropium-Albu terol 3 Ml Neb INHALATION 3 ml Q4H.RESPIRATORY S CH Administration Diltiazem HCl 60 mg 10/13/20 14:52 10/16/20 03:26 Diltiazem Er (12 hr) 60 Mg Capsule PO 60 mg Q12H VINCE Administration Finasteride 5 mg 10/13/20 21:00 10/15/20 20:19 Finasteride 5 Mg Tablet PO 5 mg BEDTIME VINCE Administration Gabapentin 300 mg 10/13/20 15:00 10/16/20 09:12 Gabapentin 300 M g Capsule PO 300 mg TID VINCE Administration Piperacillin Sod/T azobactam 50 mls @ 12.5 mls /hr 10/10/20 17:00 10/16/20 10:25 Sod 3.375 gm/ So dium Chloride IV Infused Q8H VINCE Infusion Protocol Lactulose 10 gm 10/14/20 12:45 10/16/20 13:55 Lactulose Oral L iq 20 Gm/30 Ml Udc PO Not Given Q12H VINCE Metoprolol Succina te 25 mg 10/14/20 18:00 10/16/20 09:11 Metoprolol Succi vitaliy Er (24 Hr) 25 Mg Tablet PO 25 mg BID VINCE Administration Morphine Sulfate 2 mg 10/10/20 16:15 10/16/20 04:37 Morphine 4 Mg/Ml Sdv 1 Ml IVP 2 mg Q4H PRN Administration PAIN Pantoprazole Sodiu m 40 mg 10/15/20 18:00 10/16/20 09:[address] 40 Mg Tablet PO 40 mg BID VINCE Administration Fluticasone/Salmet sterling 1 puff 10/13/20 20:00 10/16/20 08:12 Fluticasone-Salm eterol 250-50 Disk us INHALATION Not Given BID.RESPIRATORY S CH Tamsulosin HCl 0.4 mg 10/13/20 21:00 10/15/20 20:20 Tamsulosin 0.4 M g Capsule PO 0.4 mg BEDTIME VINCE Administration Vitals/I&O/Wt Last Vital Signs Temp 98.1 F 10/16/20 11:22 Pulse 78 10/16/20 15:23 Resp 18 10/16/20 15:17 BP 111/65 10/16/20 11:22 Pulse Ox 94 10/16/20 15:17 10/16/20 10/16/20 10/16/20 06:59 14:59 22:59 Intake Total 1528.333 / 2088.333 410 / 410 Output Total 1640 / 3240 600 / 600 Balance -111.667 / -1151.667 -190 / -190 Weight last 48 hrs Weight 93.894 kg Weight 93.984 kg Physical Exam Narrative: EXAM NARRATIVE: Awake alert oriented. In no acute distress. Mood and affect are appropriate. Skin is warm and dry. Moist mucous membranes. Neck supple. No JVD Lungs clear bilaterally. No wheezes or crackles Heart S1, S2, irregular Abdomen soft, slightly distended, tender bilaterally, bowel sounds are present, no rebound, no guarding. Extremities. No cyanosis or calf tenderness bilaterally. Urinary Catheter Management^: Sheikh: Cath Placed During This Visit: yes, but has since been removed by the nurse Reason for Continuing Indwelling Catheter: Decision to DC Catheter Urinary Catheter Date of Insertion: 10/14/20 Urinary Catheter Time of Insertion: 21:45 Date Urinary Catheter Removed: 10/15/20 Time Urinary Catheter Discontinued: 16:30 Data : 10/15/20 04:18 10/16/20 06:44 Micro: Microbiology 10/10/20 14:23 Blood Culture - Final Blood NO GROWTH AFTER 5 DAYS 10/10/20 14:28 Blood Culture - Final Blood NO GROWTH AFTER 5 DAYS A&P Assessment and plan (1) Free intraperitoneal air: Gastric perforation found on exploratory laparotomy. Postoperative day #2 status post repair of gastric perforation with Arthur's patch Appreciate surgical consultation Continue IV Zosyn and vancomycin secondary to peritonitis symptomatology Continue IV Protonix Culture of specimen from surgery growing staph aureus Status: Acute (2) GI bleed: Protonix IV every 12 hours Hemoglobin is drifted down. Transfuse 1 unit of packed red blood cells Status: Acute (3) Anemia: Transfuse blood. Recheck CBC tomorrow. No evidence of brisk bleeding Status: Acute (4) Hyponatremia: Likely secondary to acute illness. Resolved Status: Acute (5) Hypokalemia: Supplement again today Magnesium checked and normal Status: Acute (6) UTI (urinary tract infection): Urine culture Enterococcus species, sensitivities pending Zosyn as above Status: Acute (7) Leukocytosis: Secondary to perforated viscus Blood culture was not performed on admission as I ordered. It was done later but after antibiotics have been started. Status: Acute Additional A&P Information (1) Free intraperitoneal air: Gastric perforation found on exploratory laparotomy. Postoperative day #2 status post repair of gastric perforation with Arthur's patch Appreciate surgical consultation Continue IV Zosyn and vancomycin secondary to peritonitis symptomatology Continue IV Protonix Culture of specimen from surgery growing staph aureus Status: Acute (2) GI bleed: Protonix IV every 12 hours Hemoglobin is drifted down. Transfuse 1 unit of packed red blood cells Status: Acute (3) Anemia: Transfuse blood. Recheck CBC tomorrow. No evidence of brisk bleeding Status: Acute (4) Hyponatremia: Likely secondary to acute illness. Resolved Status: Acute (5) Hypokalemia: Supplement again today Magnesium checked and normal Status: Acute (6) UTI (urinary tract infection): Urine culture Enterococcus species, sensitivities pending Zosyn as above Status: Acute (7) Leukocytosis: Secondary to perforated viscus Blood culture was not performed on admission as I ordered. It was done later but after antibiotics have been started. Status: Acute Additional A&P Information Hypotension. This is resolved Atrial fibrillation. Concern with rapid ventricular rate following surgery. Required amiodarone drip. Initiated amiodarone 200 mg twice daily October 12, as well as metoprolol. Heart rate under better control. Reduce fluids. 40 mg of Lasix IV after blood transfusion. Appears to be slightly fluid overloaded today. COPD, oxygen dependent. No evidence of exacerbation currently. Also with history of pulmonary fibrosis. DuoNeb as needed History of Covid by positive test at the nursing facility on July 24. Chronic pain Coronary artery disease History of diabetes, not currently on any treatment Abdominal aortic aneurysm BPH Allow natural SCDs for DVT prophylaxis Holding Lovenox currently secondary to severe anemia, history of GI bleed 10/11 wean off pressors. Continue amiodarone. Continue antibiotics. Suspect we can start p.o. medications for atrial fibrillation tomorrow. Overall improved from last night. 10/12 pressors have been weaned off. Convert amiodarone to p.o. Start oral metoprolol. Transfusion of 1 unit packed red blood cells for hemoglobin less than 7. Lasix 40 mg IV x1 to prevent fluid overload and fluids reduced to 50 cc an hour. Overall improving. Arterial line to be removed today. 10/15 [place] Peritonitis secondary to perforated peptic ulcer disease. Status post oratory laparotomy. Improving. Continue diet per surgery. Continue pain management, PPI, and Zosyn. Cultures positive for MSSA. Probably discharge to residential facility tomorrow. Will discontinue Zosyn at that time. Discussed with Dr. Valdez UTI. Enterococcus sensitive to ampicillin. Covered with Zosyn. A. fib. With RVR. Continue current management with rate control medications. Anemia stable. Monitor. Shoulder pain probably secondary to recent fracture. Currently healing based on chest x-ray report. Continue PT OT and pain management. Hypokalemia. Replace and monitor. COPD and coronary artery disease. Currently stable. Continue current management. DVT prophylaxis. Teds and SCDs. Cussed with Dr. Valdez. Elaine to resume Lovenox. The plan of care was discussed with the patient. He verbalized understanding and agreement Attestations 2 Medical Necessity Statement*: Probably discharge tomorrow Procedures Arterial Line Size (Gauge): 20 Coding Level of Care Code Acute School Business Administrator for Chg Fwd Diagnoses Free intraperitoneal air K66.8 GI bleed K92.2 Anemia D64.9 Hyponatremia E87.1 Hypokalemia E87.6 UTI (urinary tract infection) N39.0 Leukocytosis D72.829
[2020-10-16] MEDS: enoxaparin 40 mg/0.4 mL Syringe SUBCUT (18:18)
[2020-10-16] MEDS: potassium chloride premix 100 ML 25 MEQ IV (18:49)
[2020-10-16] MEDS: finasteride 5 mg Tablet PO (20:50)
[2020-10-16] MEDS: tamsulosin 0.4 mg Capsule PO (20:50)
[2020-10-16 22:12] LABS: Magnesium 2.2 mg/dL (1.7-2.3)
[2020-10-17] VITALS (11 sets, daily range): BP systolic 105–139; BP diastolic 62–73; PULSE 68–78; RESP 17–18; TEMP 36.4–36.9; O2SAT 95–98
[2020-10-17] MEDS: HYDROcodone-acetaminophen 5-325 mg Tablet 1 TAB PO ×3 (01:42→09:59)
[2020-10-17] MEDS: ipratropium-albuterol 3 mL Neb INHALATION ×2 (03:19→08:02)
[2020-10-17] MEDS: dilTIAZem ER (12HR) 60 mg Capsule PO ×2 (03:22→14:42)
[2020-10-17] MEDS: piperacillin-tazobactam 3.375 GM in sodium chloride 0.9% (plus) 50 ML IV ×2 (03:24→11:48)
--- NOTE | 2020-10-17 04:55 | PC.NURSE ---
Addendum entered by Mayi Curran LPN 10/17/20 05:03: KATHLEEN drainage 250 this shift Addendum entered by Mayi Curran LPN 10/17/20 05:02: KATHLEEN drainage 170ml this shift Original Note: SHIFT SUMMARY Has done well tonight. Does request pain meds often usually quite awhile before is time but then rests until is time for them. Is being given po Hydrocodone. c/o abd incisional pain as well as right shoulder pain. Also requests for help repositoning quite frequently. Just requires minimal assist with this. Voiding per urinal. Has had 160ml output from KATHLEEN drain this shift. Is now serous colored. Stales intact to midline abd incision. No drainage and incision is well approximated. Receiving IV antibiotics. Had IV doses of both Mag and KCL last evening. alarm security or surveillance monitor showing A-fib with CVR
[2020-10-17] MEDS: pantoprazole DR 40 mg Tablet PO (09:59)
[2020-10-17] MEDS: metoprolol succinate ER (24 HR) 25 mg Tablet PO (09:59)
[2020-10-17] MEDS: gabapentin 300 mg Capsule PO ×2 (09:59→14:43)
[2020-10-17 11:02] LABS: Basophils # 0.1 10^3/uL (0.0-0.1); Basophils % 0.5 %; Eosinophils # 0.7 10^3/uL (0.0-0.8); Eosinophils % 7.7 %; Hematocrit 29.1 % (42.0-52.0); Hemoglobin 8.7 g/dL (11.7-16.6); Lymphocytes # 1.8 10^3/uL (0.8-4.8); Lymphocytes % 19.1 %; Mean Corpuscular HGB Conc 29.9 g/dL (30.0-36.0); Mean Corpuscular Hemoglobin 27.7 pg (28.0-34.0); Mean Corpuscular Volume 92.7 fL (80-94); Mean Platelet Volume 9.7 fL (7.4-10.4); Monocytes # 0.7 10^3/uL (0.2-0.9); Neutrophils # 6.01 10^3/uL (1.8-7.7); Neutrophils % 63.8 %; Nucleated Red Blood Cells % 0 %; Platelet Count 367 10^3/cmm (130-400); Red Blood Count 3.14 10^6/uL (4.1-5.3); Red Cell Distribution Width 15.8 % (12.1-15.1); White Blood Count 9.4 10^3/uL (4.0-10.0)
[2020-10-17 11:45] LABS: Alanine Aminotransferase < 5 U/L (0-41); Albumin Level 2.3 g/dL (3.5-5.2); Alkaline Phosphatase 98 IU/L (40-130); Aspartate Amino Transferase 14 U/L (0-40); Blood Urea Nitrogen 4 mg/dL (8-23); Calcium 7.9 mg/dL (8.5-10.5); Carbon Dioxide 27 mmol/L (22-29); Chloride 102 mmol/L (98-107); Globulin 3.5 g/dL (1.3-4.6); Glucose 100 mg/dL (65-115); Magnesium 1.9 mg/dL (1.7-2.3); Osmolality Calculated 279 mOsm/kg (285-295); Phosphorus 2.2 mg/dL (2.5-4.5); Sodium 136 mmol/L (136-145); Total Bilirubin 0.4 mg/dL (0.15-1.2); Total Protein 5.8 g/dL (6.6-8.7)
[2020-10-17] MEDS: lactulose oral liq 20 gm/30 mL UDC 10 GM PO (11:49)
[2020-10-17 11:58] LABS: Anion Gap 10.6 (5-19); Potassium 3.6 mmol/L (3.5-5.1)
--- NOTE | 2020-10-17 12:03 | PC.SOCIAL ---
IMM Update Pg. 2 of IMM updated and reviewed to patient who verbalized understanding. Copy provided to patient.
--- NOTE | 2020-10-17 13:35 | PM.DCS ---
Discharge Providers Date of Admission: 10/10/20 16:00 Date of Discharge: October 17, 2020 Attending Provider at Admission: Kai Valdez MD Attending Provider at Discharge: Stanley De La Rosa Primary Care Provider: Hitesh Francois DO Diagnoses at Discharge Discharge Diagnosis (1) Free intraperitoneal air: Status: Acute (2) GI bleed: Status: Acute (3) Anemia: Status: Acute (4) Hyponatremia: Status: Acute (5) Hypokalemia: Status: Acute (6) UTI (urinary tract infection): Status: Acute (7) Leukocytosis: Status: Acute Reason for Visit Reason for Visit: POSSIBLE UPPER GI BLEED Hospital Course Hospital Course Please also see H&P, consult notes and progress notes for more details. Discharge diagnoses and problem list Peritonitis secondary to perforated peptic ulcer disease. Status post oratory laparotomy Dr. Valdez. Cultures positive for MSSA. Completed course of Zosyn. Doing well. Tolerating diet well. The pain is well controlled. Cleared by Dr. Valdez for discharge. Denies any nausea or vomiting, fevers or chills, chest pain, palpitations, shortness of breath, cough. Having bowel movements. UTI. Enterococcus sensitive to ampicillin. Completed treatment with Zosyn.. A. fib. With RVR. Resolved. Currently rate controlled. He is going back to retirement facility. Will allow his primary care physician there to take care of the long-term management of this problem. Anemia stable. Monitor. Shoulder pain probably secondary to recent fracture. Currently healing based on chest x-ray report. Continue PT OT and pain management. Probably will benefit from follow-up with Ortho surgeon. Will defer to the primary care physician. Hypokalemia. Replaced. COPD and coronary artery disease. Currently stable. Continue current management. Physical Exam Narrative: EXAM NARRATIVE: Awake alert oriented. In no acute distress. Mood and affect are appropriate. Skin is warm and dry. Moist mucous membranes. Neck supple. No JVD Lungs clear bilaterally. No wheezes or crackles Heart S1, S2, irregular Abdomen soft, slightly distended, tender bilaterally, bowel sounds are present, no rebound, no guarding. Extremities. No cyanosis or calf tenderness bilaterally. Urinary Catheter Management^: Sheikh: Cath Placed During This Visit: yes, but has since been removed by the nurse Reason for Continuing Indwelling Catheter: Decision to DC Catheter Urinary Catheter Date of Insertion: 10/14/20 Urinary Catheter Time of Insertion: 21:45 Date Urinary Catheter Removed: 10/15/20 Time Urinary Catheter Discontinued: 16:30 Discharge Data Data Completed and Pending: Completed Studies During Hospitalization Category Date Time Status CT abdomen pelvis w con* [id number] Stat Cat Scan 10/10/20 08:40 Completed XR chest 1V sandra ble [id number] Routine Exams 10/10/20 16:15 Completed XR chest 1V sandra ble [id number] Stat Exams 10/11/20 01:22 Completed XR shoulder RT mi n 2V* [id number] Routin e Exams 10/14/20 11:00 Completed Pathology: Surgic al [PTH] Routine Pth 10/10/20 16:21 Completed Pending at discharge Category Date Time Status ES surgery / GI i mages Routine Exams 10/10/20 12:38 Ordered Labs from last 24 hours 10/17/20 10/17/20 10/17/20 10:28 10:28 10:28 WBC 9.4 RBC 3.14 L Hgb 8.7 L Hct 29.1 L MCV 92.7 MCH 27.7 L MCHC 29.9 L RDW 15.8 H Plt Count 367 MPV 9.7 Neut % (Auto) 63.8 Lymph % (Auto) 19.1 Sharp % (Auto) 7.0 Eos % (Auto) 7.7 Baso % (Auto) 0.5 Neut # (Auto) 6.01 Lymph # (Auto) 1.8 Sharp # (Auto) 0.7 Eos # (Auto) 0.7 Baso # (Auto) 0.1 Nucleated RBC % (a uto) 0 Nucleated RBCs # 0.0 Sodium Cancelled Potassium Cancelled Chloride Cancelled Carbon Dioxide Cancelled Anion Gap Cancelled BUN Cancelled Creatinine Cancelled GFR Calculation Cancelled Glucose Cancelled Calculated Osmolal ity Calcium Cancelled Phosphorus Cancelled Magnesium Cancelled Total Bilirubin AST ALT Alkaline Phosphata se Total Protein Albumin Cancelled Globulin 10/17/20 10/16/20 10:28 21:38 WBC RBC Hgb Hct MCV MCH MCHC RDW Plt Count MPV Neut % (Auto) Lymph % (Auto) Sharp % (Auto) Eos % (Auto) Baso % (Auto) Neut # (Auto) Lymph # (Auto) Sharp # (Auto) Eos # (Auto) Baso # (Auto) Nucleated RBC % (a uto) Nucleated RBCs # Sodium 136 Potassium 3.6 Chloride 102 Carbon Dioxide 27 Anion Gap 10.6 BUN 4 L Creatinine 0.6 L GFR Calculation Not Reportable Glucose 100 Calculated Osmolal ity 279 L Calcium 7.9 L Phosphorus 2.2 L Magnesium 1.9 2.2 Total Bilirubin 0.4 AST 14 ALT < 5 Alkaline Phosphata se 98 Total Protein 5.8 L Albumin 2.3 L Globulin 3.5 Vitals: Last Vital Signs Temp 98.4 F 10/17/20 11:33 Pulse 78 10/17/20 11:33 Resp 18 10/17/20 11:33 BP 137/67 10/17/20 11:33 Pulse Ox 95 10/17/20 11:33 Discharge Plan Discharge Patient Disposition: Xfer SNF Condition: Stable Prescriptions: New hydrocodone-acetaminophen 5-325 mg Tablet 1 tab PO Q4H PRN (Reason: Moderate Pain) Qty: 20 RF: 0 pantoprazole 40 mg Tablet,Delayed Release (Dr/Ec) 40 mg PO BID Qty: 60 RF: 0 Continued acetaminophen 325 mg Tablet 325 mg PO QID PRN (Reason: Pain) RF: 0 magnesium hydroxide [Milk of Magnesia] 400 mg/5 mL Suspension 30 ml PO DAILY PRN (Reason: Constipation) RF: 0 tamsulosin 0.4 mg Capsule 0.4 mg PO BEDTIME RF: 0 bisacodyl [Dulcolax (bisacodyl)] 10 mg Suppository 10 mg VT DAILY PRN (Reason: Constipation) RF: 0 gabapentin 300 mg Capsule 300 mg PO TID RF: 0 diltiazem HCl 60 mg Capsule,Extended Release 12 Hr 60 mg PO Q12H RF: 0 methyl salicylate-menthol Ointment 1 applic TOPICAL BID PRN (Reason: Pain) RF: 0 metoprolol succinate 25 mg Tablet Extended Release 24 Hr 12.5 mg PO BID RF: 0 ondansetron 4 mg Tablet,Disintegrating 4 mg PO Q4H PRN (Reason: Nausea And Vomiting) RF: 0 finasteride 5 mg Tablet 5 mg PO BEDTIME RF: 0 budesonide-formoterol [Symbicort] 160-4.5 mcg/actuation Hfa Aerosol Inhaler 2 puff INHALATION BID RF: 0 ferrous gluconate 324 mg (37.5 mg iron) Tablet 324 mg PO DAILY RF: 0 melatonin 3 mg Capsule 3 mg PO BEDTIME RF: 0 albuterol sulfate 90 mcg/actuation Aero Powdr Breath Act W/Sensor 2 inh INHALATION Q2H PRN (Reason: Shortness Of Breath) RF: 0 Senna Plus 8.6-50 mg Capsule 2 tab-cap PO BEDTIME RF: 0 Orajel 3X Mouth Sores 20-0.1-0.15 % Gel 1 ea MUCOUS MEMBRANE QID PRN (Reason: soreness) RF: 0 Lactobacillus acidophilus Capsule 10,000 mmu cells PO BID Qty: 60 RF: 0 aspirin 81 mg Tablet,Chewable 81 mg PO DAILY RF: 0 Discontinued morphine concentrate 100 mg/5 mL (20 mg/mL) Solution 15 mg PO Q2H PRN (Reason: air hunger) RF: 0 Fleet Enema 19-7 gram/118 mL Enema 118 ml VT DAILY PRN (Reason: Constipation) RF: 0 fentanyl 75 mcg/hr Patch 72 Hour 1 patch TRANSDERMAL Q72H RF: 0 lisinopril 40 mg Tablet 40 mg PO DAILY RF: 0 lorazepam [Lorazepam Intensol] 2 mg/mL Concentrate 0.25 mg PO Q2H PRN (Reason: Anxiety) RF: 0 cyclobenzaprine 5 mg Tablet 5 mg PO TID PRN (Reason: Muscle Spasm) RF: 0 guaifenesin [Mucinex] 600 mg Tablet Extended Release 12hr 600 mg PO TID RF: 0 ipratropium-albuterol 0.5 mg-3 mg(2.5 mg base)/3 mL Solution For Nebulization 3 ml inhalation Q6H.RESPIRATORY Qty: 120 RF: 0 morphine 15 mg tablet 15 mg PO Q6H PRN (Reason: pain) Qty: 30 RF: 0 pantoprazole 40 mg Tablet,Delayed Release (Dr/Ec) 40 mg PO BID RF: 0 Discharge Orders: Discharge Order (Routine); Ordered 10/17/20 Ordered By: Stanley De La Rosa Referrals: Kai Valdez MD [Physician] - 1 week Discharge Diet: Regular Discharge Activity: Increase activity as tolerated and Oxygen as instructed Activity Restrictions/Additional Instructions: Please return to emergency room if develop any increasing abdominal pain, distention or bloating, nausea or vomiting, diarrhea or constipation, fever or chills, dizziness, lightheadedness or weakness, chest pain, shortness of breath, cough, palpitations or any other new symptoms. Discharge Attestations Time Spent in Discharge Care*: less than 30 min Status at Discharge: Cognitive status at discharge: mildly impaired cognition, Behavioral status at discharge: cooperative, Quality Metrics Clinical Quality Measures During this hospital stay, did patient experience: None Coding Level of Care Code Acute Impregnating Helper for Chg Fwd Diagnoses Free intraperitoneal air K66.8 GI bleed K92.2 Anemia D64.9 Hyponatremia E87.1 Hypokalemia E87.6 UTI (urinary tract infection) N39.0 Leukocytosis D72.829
[2020-10-17] MEDS: enoxaparin 40 mg/0.4 mL Syringe SUBCUT (14:43)
--- NOTE | 2020-10-17 14:58 | P.PN_ITS ---
Subjective Subjective: Interval history: Patient doing well, tolerating diet GI soft diet, had bowel movement Vitals/I&O/Wt Last Vital Signs Temp 98.4 F 10/17/20 11:33 Pulse 78 10/17/20 11:33 Resp 18 10/17/20 11:33 BP 137/67 10/17/20 11:33 Pulse Ox 95 10/17/20 11:33 10/16/20 10/17/20 10/17/20 22:59 06:59 14:59 Intake Total 172 / 1132 550 / 1132 890 / 890 Output Total 560 / 2175 1015 / 2175 900 / 900 Balance -388 / -1043 -465 / -1043 -10 / -10 Weight last 48 hrs Weight 209 lb 14.4 oz Weight 206 lb 14.4 oz Weight 207 lb Physical Exam Narrative: EXAM NARRATIVE: Abdomen: soft , NT , mildly tender, incision c/d/i , TEO drain serosanguineous output, DC today Urinary Catheter Management^: Sheikh: Cath Placed During This Visit: yes, but has since been removed by the nurse Reason for Continuing Indwelling Catheter: Decision to DC Catheter Urinary Catheter Date of Insertion: 10/14/20 Urinary Catheter Time of Insertion: 21:45 Date Urinary Catheter Removed: 10/15/20 Time Urinary Catheter Discontinued: 16:30 Data : 10/17/20 10:28 10/17/20 10:28 Micro: Microbiology 10/10/20 14:23 Blood Culture - Final Blood NO GROWTH AFTER 5 DAYS 10/10/20 14:28 Blood Culture - Final Blood NO GROWTH AFTER 5 DAYS A&P Assessment and plan (1) S/P exploratory laparotomy: Status post expiratory laparotomy for perforated gastric ulcer. Intra-abdominal abscess:d/c abx since leukocytosis resolved. GI soft diet d/c teo drain d/c to NH today Status: Acute Attestations Medical Necessity Statement*: s/p ex lap , d/c home today Procedures Arterial Line Size (Gauge): 20 Coding Level of Care Code Acute Electronic Communications Technician for Chg Fwd Diagnoses S/P exploratory laparotomy Z98.890
== END 2020-10-17 16:37 | disposition skilled nursing facility (03) | DRG 326 ==
LOC: ER 11:06 → OPS 11:14 → ICU 16:24 → MEDSURG 10-13 14:22
PROVIDERS: Internal Medicine; Admitting Provider Surgery; Emergency Provider Family Medicine; PCP Emergency Medicine Emergency Medical Services; Visit Provider Internal Medicine
PROC: 0DU607Z Supplement Stomach with Autologous Tissue Substitute, Open Approach (ICD-10-PCS; CPT 49000; principal; 2020-10-10 12:50)
PROC: 0DJ08ZZ Inspection of Upper Intestinal Tract, Via Natural or Artificial Opening Endoscopic (ICD-10-PCS; CPT 43235; 2020-10-10 12:50)
DX: K63.1 Perforation of intestine (nontraumatic) (principal); K65.1 Peritoneal abscess; K92.2 Gastrointestinal hemorrhage, unspecified; E87.1 Hypo-osmolality and hyponatremia; N39.0 Urinary tract infection, site not specified; K66.8 Other specified disorders of peritoneum; E87.6 Hypokalemia; D64.9 Anemia, unspecified; B95.61 Methicillin susceptible Staphylococcus aureus infection as the cause of diseases classified elsewhere; Z66 Do not resuscitate; B95.2 Enterococcus as the cause of diseases classified elsewhere; J44.9 Chronic obstructive pulmonary disease, unspecified; Z79.82 Long term (current) use of aspirin; S42.291D Other displaced fracture of upper end of right humerus, subsequent encounter for fracture with routine healing; X58.XXXD Exposure to other specified factors, subsequent encounter; I10 Essential (primary) hypertension; I48.0 Paroxysmal atrial fibrillation; I25.10 Atherosclerotic heart disease of native coronary artery without angina pectoris; Z79.01 Long term (current) use of anticoagulants; Z87.891 Personal history of nicotine dependence; G89.29 Other chronic pain; Z99.81 Dependence on supplemental oxygen
CPT/HCPCS: 12345; 36415; 36430; 43235; 51702; 71045; 73030; 74177; 80048; 80053; 80069; 80202; 81001; 83690; 83735; 84100; 85014; 85018; 85025; 86850; 86900; 86920; 87040; 87070; 87077; 87086; 87176; 87186; 87205; 88305; 93005; 94640; 96372; 96375; 97110; 97161; 97165; 97530; 99283; C9113; C9290; J0282; J0330; J0696; J1650; J1940; J2060; J2270; J2370; J2405; J2543; J3010; J3370; J3475; J3480; J3490; J7030; J7040; J7050; J7060; J7608; P9016; Q9967

== ENCOUNTER 2021-01-12 14:17 | Emergency (ER) | payer OTHER, MEDICARE, MEDICAID, SELFPAY ==
[2021-01-12 14:19] VITALS: BP 142/74; PULSE 77; RESP 22; TEMP 37.2; O2SAT 100; BMI 28.3
--- NOTE | 2021-01-12 14:46 | CTR_ITS ---
PROCEDURE INFORMATION: Exam: CT Angiography Chest With Contrast Exam date and time: 01/12/2021 3:59 PM Age: 75 years old Clinical indication: Patient HX: Coughing up blood; Additional info: Hemoptysis TECHNIQUE: Imaging protocol: Computed tomographic angiography of the chest with contrast. 3D rendering (Not supervised by radiologist): MIP and/or 3D reconstructed images were created by the technologist. Radiation optimization: All CT scans at this facility use at least one of these dose optimization techniques: automated exposure control; mA and/or kV adjustment per patient size (includes targeted exams where dose is matched to clinical indication); or iterative reconstruction. Contrast material: OMNI 350; Contrast volume: 84 ml; Contrast route: INTRAVENOUS (IV); COMPARISON: CTA Chest-Pulmonary Emb [id number] 10/12/2017 12:06 PM RADIATION DOSE METRICS: Total DLP (mGy-cm): 659.02 FINDINGS: Pulmonary arteries: Normal. No pulmonary emboli. Aorta: Diffuse atherosclerotic wall plaques of the thoracic aorta. Focal small saccular aneurysm arising from the anterior wall of the ascending thoracic aorta appears larger than prior imaging measuring about 2.8 cm transverse by 1.7 cm AP; previously 2.5 cm transverse by 1.3 cm AP. Additional small shallow saccular aneurysm arising from the left lateral wall of the aortic arch appears slightly larger than prior measuring about 3.3 cm transverse by 1.3 cm AP; previously 3.3 cm transverse by 1.2 cm AP. Distal descending thoracic aorta is tortuous with fusiform aneurysmal dilation. The greatest diameter is 6.1 cm; prior 5.1 cm No acute thoracic aorta dissection is identified, however evaluation is limited by the phase of contrast utilized for this exam. No intramural hematoma apparent. No acute periaortic hematoma. Lungs: Severe emphysema. Diffuse interstitial fibrotic lung change. Diffuse hyperinflation of lungs. Mild left lower lobe volume loss with dependent airspace opacities consistent with mild subsegmental atelectasis. Small distal subsegmental endobronchial filling defects of the left lower lobe apparent. Diffuse bronchial wall thickening changes. Small nodule with spiculated borders in the central aspect of the right upper lobe new from prior measuring about 1.2 cm x 0.9 cm on axial series 2, image 188. Pleural spaces: Negative for pneumothorax. Negative for pleural effusion. Heart: Unremarkable. No cardiomegaly. No pericardial effusion. Lymph nodes: Unremarkable. No enlarged lymph nodes. Kidneys and ureters: Significant bilateral diffuse renal cortical atrophy changes. Bones/joints: Thoracic spinal alignment is unremarkable. No significant osseous abnormality. Soft tissues: Soft tissues of the chest wall are unremarkable. CT/CT angio chest PE protcl [id number] IMPRESSION: 1. Negative for pulmonary embolism. 2. No focal pneumonia. 3. Severe emphysema and interstitial fibrotic lung change. 4. Small spiculated pulmonary nodule in the right upper lobe is new from prior. Early pulmonary neoplasm cannot be excluded. Recommend short interval follow-up in 3 months. 5. 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 Radiation Dose CTDIVOL = (mGy): DLP = 659.02 (mGy-cm)
[2021-01-12 15:33] LABS: Alanine Aminotransferase 6 U/L (0-41); Albumin Level 3.2 g/dL (3.5-5.2); Alkaline Phosphatase 86 IU/L (40-130); Anion Gap 12.2 (5-19); Aspartate Amino Transferase 10 U/L (0-40); Blood Urea Nitrogen 21 mg/dL (8-23); C Reactive Protein 62.4 mg/L (0.0-4.9); Calcium 8.9 mg/dL (8.5-10.5); Carbon Dioxide 31 mmol/L (22-29); Chloride 96 mmol/L (98-107); Creatinine Clr Calc Pharmacy 87.5954; Globulin 4.3 g/dL (1.3-4.6); Glucose 112 mg/dL (65-115); Lipase 12 U/L (13-60); Osmolality Calculated 284 mOsm/kg (285-295); Potassium 4.2 mmol/L (3.5-5.1); Sodium 135 mmol/L (136-145); Total Bilirubin 0.3 mg/dL (0.15-1.2); Total Protein 7.5 g/dL (6.6-8.7)
[2021-01-12 15:44] LABS: Basophils # 0.1 10^3/uL (0.0-0.1); Basophils % 0.5 %; Eosinophils # 0.6 10^3/uL (0.0-0.8); Eosinophils % 5.6 %; Hematocrit 33.6 % (42.0-52.0); Hemoglobin 10.1 g/dL (11.7-16.6); Lymphocytes # 1.8 10^3/uL (0.8-4.8); Lymphocytes % 16.7 %; Mean Corpuscular HGB Conc 30.1 g/dL (30.0-36.0); Mean Corpuscular Hemoglobin 28.2 pg (28.0-34.0); Mean Corpuscular Volume 93.9 fL (80-94); Mean Platelet Volume 10.4 fL (7.4-10.4); Monocytes # 0.9 10^3/uL (0.2-0.9); Monocytes % 8.1 %; Neutrophils # 7.56 10^3/uL (1.8-7.7); Neutrophils % 68.8 %; Nucleated Red Blood Cells % 0 %; Platelet Count 236 10^3/cmm (130-400); Red Blood Count 3.58 10^6/uL (4.1-5.3); Red Cell Distribution Width 15.6 % (12.1-15.1)
[2021-01-12] MEDS: iohexol 350 mg/mL 100 mL Btl IV (16:05)
[2021-01-12 16:07] LABS: INR 1.05 (0.8-1.2)
[2021-01-12 16:29] VITALS: PULSE 83; RESP 18
--- NOTE | 2021-01-12 16:30 | PC.NURSE ---
IV infiltration education technician Maximo reported during CT contrast infusion, vein blew out causing contrast to leak into surrounding tissue. Now rotating application of heat and ice directly over site to elevate symptoms.
--- NOTE | 2021-01-12 16:47 | W.ED.SOB ---
HPI - SOB/Dyspnea General: Chief Complaint: Shortness of Breath/Dyspnea Stated Complaint: COUGHING UP BLOOD Time Seen by Provider: 01/12/21 14:19 Source: patient and EMS Mode of arrival: EMS Limitations: no limitations History of Present Illness: HPI Narrative: The patient is a 75-year-old male with a history of COPD and chronic respiratory failure who is on oxygen at 5 L/min all the time. He said about midnight he started coughing up bloody sputum. Some of it is scant some of it is bright red blood about dollar coin size. He has some dizziness but no loss of consciousness. He has some shortness of breath but he is not sure if it is any worse than his baseline. He is not on anticoagulation. MD elicited complaint: shortness of breath and cough Pertinent past history: COPD Onset (ago): hour(s) (12) Timing: intermittent Severity: mild Exacerbating factors: nothing Relieving factors: nothing Known history of: COPD Associated symptoms: Reports dizziness; Deny abdominal pain, chest congestion, chest pain, cough, diaphoresis, extremity pain, fever(s), hemoptysis, lightheadedness, myalgias, nausea, orthopnea, palpitations, paresthesias, polydipsia, polyuria, rash, sense of impending doom, syncope or vomiting Treatment prior to arrival: none Review of Systems General: Reports: 10 or more systems reviewed and unremarkable except in HPI and below Const: Denies: fever(s) or diaphoresis Eyes: Denies: change in vision or blurry vision ENMT: Denies: throat pain, enlarged tonsils, odynophagia, hoarseness, mouth pain or swelling of lips/tongue Card: Denies: chest pain, palpitations, lightheadedness, syncope or orthopnea Resp: Denies: hemoptysis or chest congestion GI: Denies: abdominal pain, nausea or vomiting : Denies: flank pain, dysuria, urinary frequency, urinary urgency or urinary hesitancy Musc: Denies: extremity pain Skin/Breast: Denies: rash, pruritus or erythema Neuro: Reports: dizziness Endo: Denies: polyuria or polydipsia PFS ED PFSH: Medical History (Reviewed 01/12/21 @ 16:57 by Chyna Cooper MD, [facility] [place]) AAA (abdominal aortic aneurysm) Anticoagulant prescribed Atrial fibrillation Back pain CAD (coronary artery disease) Cholelithiasis COPD (chronic obstructive pulmonary disease) Oxygen dependent Diabetes DNR (do not resuscitate) DU (perforated duodenal ulcer) Hospice care patient Hypertension Hypokalemia Hyponatremia Iliac artery occlusion Incisional hernia Leukocytosis Paroxysmal atrial fibrillation with RVR Presence of hip joint prosthesis Pulmonary interstitial fibrosis UTI (urinary tract infection) Surgical History (Reviewed 01/12/21 @ 16:57 by Chyna Cooper MD, [facility] [place]) H/O abdominal surgery H/O angioplasty H/O hernia repair Previous back surgery S/P AAA repair S/P exploratory laparotomy (10/11/20) Family History (Reviewed 01/12/21 @ 16:57 by Chyna Cooper MD, [facility] [place]) Other Cancer Family history non-contributory Social History (Reviewed 01/12/21 @ 16:57 by Chyna Cooper MD, [facility] [place]) Smoking and tobacco status: former smoker Alcohol intake: never Housing: [facility] Physical Exam Const: COMMON NORMALS: no acute distress, average body habitus, patient oriented x3, no limitations, healthy appearing, alert and well nourished HENMT: COMMON NORMALS: normocephalic, atraumatic and moist oral mucous membranes HEAD & SCALP: normocephalic and atraumatic Neck/C-Spine: COMMON NORMALS: no meningeal signs and no JVD Resp: COMMON NORMALS: normal respiratory effort, No retractions, No use of accessory muscles, clear to auscultation bilaterally and percussion normal AUSCULTATION: clear to auscultation bilaterally PERCUSSION: percussion normal Cardio: COMMON NORMALS: no JVD, regular rate, regular rhythm, S1 normal heart sound present, S2 normal heart sound present, No gallops present (Cardio), No clicks present (Cardio), No murmurs present (Cardio), No rub (Cardio) and Peripheral pulses 2+ throughout RATE: regular rate RHYTHM: regular rhythm HEART SOUNDS: S1 normal heart sound present and S2 normal heart sound present PERIPHERAL PULSES: Peripheral pulses 2+ throughout GI: COMMON NORMALS: Normal to inspection, nondistended, normoactive bowel sounds present, Soft to palpation, non-tender, No hepatosplenomegaly present, no masses and no bruits PALPATION: Yes Soft to palpation and Yes No hepatosplenomegaly present Extremity: COMMON NORMALS: normal to inspection, full ROM, capillary refill normal, no calf tenderness and no pedal edema Neuro: COMMON NORMALS: patient oriented x3 SENSORIUM/ORIENTATION: Yes alert MENINGEAL SIGNS: Yes no meningeal signs Skin: COMMON NORMALS: no rashes or lesions noted, no wounds, turgor normal, no jaundice, no petechiae and no mottling GENERAL SKIN EXAM: no rashes or lesions noted and turgor normal Course ED course: Spoke to his son twice in the ED by phone (Yassine MoeLeonel) and explained my clinical findings including the enlarging aneurysm and the new lung nodule. He is ok with discharging the patient and the [facility] can schedule an appointment at the [facility] for him to follow up with a subway train driver and vascular surgeon. Reevaluation(s): Reevaluation #1: Discussed the lab and imaging findings with him. I explained that his aneurysm is getting bigger especially in the descending thoracic aorta. He has had a few episodes of hemoptysis here although they are small volume. Advised that with his hemoptysis and enlarging aneurysm he may benefit from evaluation by vascular surgeon since his son told me that the plan at the [facility] was to perform surgery if the aneurysm enlarges significantly. The patient however declined transfer as he says he is only having very small amounts of hemoptysis and he feels he will be fine. He therefore would like for me to discharge him. I updated his son. Time: 17:42 Vital Signs: Vital signs: Vital Signs Temperature 98.9 F 01/12/21 14:19 Pulse Rate 76 01/12/21 18:08 Respiratory Rate 22 H 01/12/21 18:08 Blood Pressure 129/108 01/12/21 18:08 Pulse Oximetry 96 01/12/21 18:08 MDM - SOB/Dyspnea MDM Narrative: Medical decision making narrative: 75 year old male who is a [facility] resident and who was sent to the ED for evaluation of hemoptysis. He has several episodes of small volume hemoptysis. He is not on any anticoagulation. He has a history of thoracic aortic aneurysm and on his CTA today it is enlarging. No dissection. Patient declined transfer and wants to be sent back to the [facility]. After he was in the ED we found out that he is on hospice care and i updated his hospice nurse. He is discharged back to the [facility] with no new orders but he is to return if his symptoms worsen. Medical Records: Attestation: I reviewed the patient's medical records. Lab Data: Attestation: I reviewed the patient's lab results. Labs: Lab Results 01/12/21 01/12/21 01/12/21 Range/Units 15:00 15:32 15:32 WBC 11.0 H (4.0-10.0) 10^3/ uL RBC 3.58 L (4.1-5.3) 10^6/u L Hgb 10.1 L (11.7-16.6) g/dL Hct 33.6 L (42.0-52.0) % MCV 93.9 (80-94) fL MCH 28.2 (28.0-34.0) pg MCHC 30.1 (30.0-36.0) g/dL RDW 15.6 H (12.1-15.1) % Plt Count 236 (130-400) 10^3/c mm MPV 10.4 (7.4-10.4) fL Neut % (Auto) 68.8 % Lymph % (Auto) 16.7 % Harris % (Auto) 8.1 % Eos % (Auto) 5.6 % Baso % (Auto) 0.5 % Neut # (Auto) 7.56 (1.8-7.7) 10^3/u L Lymph # (Auto) 1.8 (0.8-4.8) 10^3/u L Harris # (Auto) 0.9 (0.2-0.9) 10^3/u L Eos # (Auto) 0.6 (0.0-0.8) 10^3/u L Baso # (Auto) 0.1 (0.0-0.1) 10^3/u L Nucleated RBC % (a uto) 0 % Nucleated RBCs # 0.0 /100WBC PT 14.10 (12.1-14.9) SECO NDS INR 1.05 (0.8-1.2) Sodium 135 L (136-145) mmol/L Potassium 4.2 (3.5-5.1) mmol/L Chloride 96 L (98-107) mmol/L Carbon Dioxide 31 H (22-29) mmol/L Anion Gap 12.2 (5-19) BUN 21 (8-23) mg/dL Creatinine 0.8 (0.7-1.2) mg/dL GFR Calculation Not Reportable Glucose 112 (65-115) mg/dL Calculated Osmolal ity 284 L (285-295) mOsm/k g Lactate (0.5-2.2) mmol/L Calcium 8.9 (8.5-10.5) mg/dL Total Bilirubin 0.3 (0.15-1.2) mg/dL AST 10 (0-40) U/L ALT 6 (0-41) U/L Alkaline Phosphata se 86 (40-130) IU/L C-Reactive Protein 62.4 H (0.0-4.9) mg/L Total Protein 7.5 (6.6-8.7) g/dL Albumin 3.2 L (3.5-5.2) g/dL Globulin 4.3 (1.3-4.6) g/dL Lipase 12 L (13-60) U/L Blood Type Rho(D) Type Antibody Screen 01/12/21 01/12/21 Range/Units 15:32 15:32 WBC (4.0-10.0) 10^3/ uL RBC (4.1-5.3) 10^6/u L Hgb (11.7-16.6) g/dL Hct (42.0-52.0) % MCV (80-94) fL MCH (28.0-34.0) pg MCHC (30.0-36.0) g/dL RDW (12.1-15.1) % Plt Count (130-400) 10^3/c mm MPV (7.4-10.4) fL Neut % (Auto) % Lymph % (Auto) % Harris % (Auto) % Eos % (Auto) % Baso % (Auto) % Neut # (Auto) (1.8-7.7) 10^3/u L Lymph # (Auto) (0.8-4.8) 10^3/u L Harris # (Auto) (0.2-0.9) 10^3/u L Eos # (Auto) (0.0-0.8) 10^3/u L Baso # (Auto) (0.0-0.1) 10^3/u L Nucleated RBC % (a uto) % Nucleated RBCs # /100WBC PT (12.1-14.9) SECO NDS INR (0.8-1.2) Sodium (136-145) mmol/L Potassium (3.5-5.1) mmol/L Chloride (98-107) mmol/L Carbon Dioxide (22-29) mmol/L Anion Gap (5-19) BUN (8-23) mg/dL Creatinine (0.7-1.2) mg/dL GFR Calculation Glucose (65-115) mg/dL Calculated Osmolal ity (285-295) mOsm/k g Lactate 1.0 (0.5-2.2) mmol/L Calcium (8.5-10.5) mg/dL Total Bilirubin (0.15-1.2) mg/dL AST (0-40) U/L ALT (0-41) U/L Alkaline Phosphata se (40-130) IU/L C-Reactive Protein (0.0-4.9) mg/L Total Protein (6.6-8.7) g/dL Albumin (3.5-5.2) g/dL Globulin (1.3-4.6) g/dL Lipase (13-60) U/L Blood Type O Positive Rho(D) Type Positive / 4+ Antibody Screen Negative Imaging Data^: CTA Chest: Attestation: I personally reviewed and interpreted this imaging study as follows: Radiologist's impression: [address] [address] [address] Scan Report Signed Patient: Yassine Santillan Sr Maria Luz #: [id number] : 1945cct#:[id number] Age/Sex: 75 / MADM Date: 01/12/21 [facility] Attending Dr: Ordering Provider/Ordering MD: Chyna Cooper MD, [facility] [place] Date of Service: 01/12/21 Procedure(s): CT angio chest PE protcl [id number] Accession Number(s): [id number] Report Number: [id number] PROCEDURE INFORMATION: Exam: CT Angiography Chest With Contrast Exam date and time: 01/12/2021 3:59 PM Age: 75 years old Clinical indication: Patient HX: Coughing up blood; Additional info: Hemoptysis TECHNIQUE: Imaging protocol: Computed tomographic angiography of the chest with contrast. 3D rendering (Not supervised by radiologist): MIP and/or 3D reconstructed images were created by the technologist. Radiation optimization: All CT scans at this facility use at least one of these dose optimization techniques: automated exposure control; mA and/or kV adjustment per patient size (includes targeted exams where dose is matched to clinical indication); or iterative reconstruction. Contrast material: OMNI 350; Contrast volume: 84 ml; Contrast route: INTRAVENOUS (IV); COMPARISON: CTA Chest-Pulmonary Emb [id number] 10/12/2017 12:06 PM RADIATION DOSE METRICS: Total DLP (mGy-cm): 659.02 FINDINGS: Pulmonary arteries: Normal. No pulmonary emboli. Aorta: Diffuse atherosclerotic wall plaques of the thoracic aorta. Focal small saccular aneurysm arising from the anterior wall of the ascending thoracic aorta appears larger than prior imaging measuring about 2.8 cm transverse by 1.7 cm AP; previously 2.5 cm transverse by 1.3 cm AP. Additional small shallow saccular aneurysm arising from the left lateral wall of the aortic arch appears slightly larger than prior measuring about 3.3 cm transverse by 1.3 cm AP; previously 3.3 cm transverse by 1.2 cm AP. Distal descending thoracic aorta is tortuous with fusiform aneurysmal dilation. The greatest diameter is 6.1 cm; prior 5.1 cm No acute thoracic aorta dissection is identified, however evaluation is limited by the phase of contrast utilized for this exam. No intramural hematoma apparent. No acute periaortic hematoma. Lungs: Severe emphysema. Diffuse interstitial fibrotic lung change. Diffuse hyperinflation of lungs. Mild left lower lobe volume loss with dependent airspace opacities consistent with mild subsegmental atelectasis. Small distal subsegmental endobronchial filling defects of the left lower lobe apparent. Diffuse bronchial wall thickening changes. Small nodule with spiculated borders in the central aspect of the right upper lobe new from prior measuring about 1.2 cm x 0.9 cm on axial series 2, image 188. Pleural spaces: Negative for pneumothorax. Negative for pleural effusion. Heart: Unremarkable. No cardiomegaly. No pericardial effusion. Lymph nodes: Unremarkable. No enlarged lymph nodes. Kidneys and ureters: Significant bilateral diffuse renal cortical atrophy changes. Bones/joints: Thoracic spinal alignment is unremarkable. No significant osseous abnormality. Soft tissues: Soft tissues of the chest wall are unremarkable. CT/CT angio chest PE protcl [id number] IMPRESSION: 1. Negative for pulmonary embolism. 2. No focal pneumonia. 3. Severe emphysema and interstitial fibrotic lung change. 4. Small spiculated pulmonary nodule in the right upper lobe is new from prior. Early pulmonary neoplasm cannot be excluded. Recommend short interval follow-up in 3 months. 5. 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 Radiation Dose CTDIVOL = (mGy): DLP = 659.02 (mGy-cm) Dictated By:Kevin Mccormack Signed By:Cristian Mccormack Date/Time:01/12/211626 DD/ 25 Discharge Plan Discharge Patient Disposition: Home Clinical Impression: Cough with hemoptysis, Pulmonary nodule Thoracic aortic aneurysm (TAA) Qualifiers: Presence of rupture: without rupture Qualified Code(s): I71.2 - Thoracic aortic aneurysm, without rupture Condition: Stable Prescriptions: Continued acetaminophen 325 mg Tablet 325 mg PO QID PRN (Reason: Pain) RF: 0 tamsulosin 0.4 mg Capsule 0.4 mg PO BEDTIME@1999 RF: 0 bisacodyl [Dulcolax (bisacodyl)] 10 mg Suppository 10 mg MN DAILY PRN (Reason: Constipation) RF: 0 gabapentin 300 mg Capsule 300 mg PO TID@08,14,20 RF: 0 diltiazem HCl 60 mg Capsule,Extended Release 12 Hr 60 mg PO Q12H RF: 0 Cold and Hot Therapy [place] Ointment 1 applic TOPICAL BID PRN (Reason: Pain) RF: 0 metoprolol succinate 25 mg Tablet Extended Release 24 Hr 12.5 mg PO BID@ RF: 0 ondansetron 4 mg Tablet,Disintegrating 4 mg PO Q4H PRN (Reason: Nausea And Vomiting) RF: 0 finasteride 5 mg Tablet 5 mg PO BEDTIME@1999 RF: 0 budesonide-formoterol [Symbicort] 160-4.5 mcg/actuation Hfa Aerosol Inhaler 2 puff INHALATION BID@ RF: 0 ferrous gluconate 324 mg (37.5 mg iron) Tablet 324 mg PO DAILY@0800 RF: 0 melatonin 3 mg Capsule 3 mg PO BEDTIME@1999 RF: 0 albuterol sulfate 90 mcg/actuation Aero Powdr Breath Act W/Sensor 2 inh INHALATION Q2H PRN (Reason: Shortness Of Breath) RF: 0 Senna Plus 8.6-50 mg Capsule 2 tab-cap PO BEDTIME@1999 RF: 0 Orajel 3X Mouth Sores 20-0.1-0.15 % Gel 1 ea MUCOUS MEMBRANE QID PRN (Reason: soreness) RF: 0 aspirin 81 mg Tablet,Chewable 81 mg PO DAILY@0800 RF: 0 morphine concentrate 100 mg/5 mL (20 mg/mL) solution 100 mg PO PRN PRN (Reason: Pain) RF: 0 mirtazapine 15 mg Tablet 15 mg PO BEDTIME@1999 RF: 0 fentanyl 75 mcg/hr patch 72 hour 1 patch transdermal Q72H RF: 0 Lorazepam Intensol 2 mg/mL concentrate 2 mg PO Q2H PRN (Reason: Pain) RF: 0 Morphine Schedule Ii Immediate 15 mg PO Q6H PRN (Reason: Pain) RF: 0 pantoprazole 40 mg tablet,delayed release (DR/EC) 40 mg PO BID@799,1999 RF: 0 Lactobacillus acidophilus Capsule 10,000 mmu cells PO BID@ RF: 0 Milk of Magnesia 400 mg/5 mL Suspension 400 mg PO DAILY PRN (Reason: Constipation) RF: 0 Discharge Orders: Discharge ED (Routine); Ordered 01/12/21 Ordered By: Chyna Cooper Referrals: Hitesh Francois DO [Primary Care Provider] - 1-3 days Discharge Diet: Usual diet Discharge Activity: Increase activity as tolerated Patient Instructions: Thoracic Aortic Aneurysm (ED), Acute Hemoptysis (ED), Pulmonary Nodules (ED) Activity Restrictions/Additional Instructions: Return for any new or worsening symptoms. Follow-up with your primary care provider within 3 days. Follow-up with the vascular surgeon as soon as possible as your aneurysms have increased in size. There is no sign of rupture at this time. You have a new spot on your lung that needs to be followed up in about 3 to 6 months with a repeat CT scan to make sure it is not cancer. Coding Level of Care Code ED Flight Operations Inspector for Chg Fwd Exam Comprehensive
[2021-01-12 16:48] VITALS: BP 120/45; PULSE 73; RESP 22; O2SAT 98
[2021-01-12 18:00] VITALS: BP 129/108; PULSE 84; RESP 23; O2SAT 97
[2021-01-12 18:08] VITALS: BP 129/108; PULSE 76; RESP 22; O2SAT 96
[2021-01-12] MEDS: HYDROcodone-acetaminophen 5-325 mg Tablet 1 TAB PO (19:10)
== END 2021-01-12 19:48 | disposition home or self-care (01) ==
PROVIDERS: Emergency Provider Family Medicine; PCP Emergency Medicine Emergency Medical Services
DX: R04.2 Hemoptysis (principal); R91.1 Solitary pulmonary nodule; I71.2 Thoracic aortic aneurysm, without rupture; Z79.82 Long term (current) use of aspirin; I48.91 Unspecified atrial fibrillation; I25.10 Atherosclerotic heart disease of native coronary artery without angina pectoris; J44.9 Chronic obstructive pulmonary disease, unspecified; Z99.81 Dependence on supplemental oxygen; E11.9 Type 2 diabetes mellitus without complications; I10 Essential (primary) hypertension; Z87.891 Personal history of nicotine dependence
CPT/HCPCS: 36415; 71275; 80053; 83605; 83690; 85025; 85610; 86140; 86850; 86900; 99284; Q9967